=== PATIENT | female | born 1950 | race Two or more races ===

== ENCOUNTER 2018-05-09 21:45 | Inpatient (IN) | payer MEDICAID ==
[~2018-05-09] VITALS: Ht 157.5 cm; Wt 62.2 kg
[2018-05-09 21:47] VITALS: BP 151/69
--- NOTE | 2018-05-09 21:51 | NUR ---
ED Nurse Note: pt brought in by [facility] from home c/o sob x 2hrs, per son's statement, pt started having sx today, denies cp/rosales/pain, pt had nausea ENR to hospital, EMS gave pt zofran. pt currently denies nausea at this time. pt AA&ox4, gcs=15, skin warm and dry, resp even and unlabored on RA, no resp distress sx noted, no accessory muscle use, VSS, NSr on satellite project site monitor, will cont monitor. ERMD at the bedside.
--- NOTE | 2018-05-09 21:52 | Emergency Room Report ---
History of Present Illness General Chief Complaint: Dyspnea/Respdistress Source: Patient, Family Member Present Illness HPI This 68-year-old female with history of high blood pressure and diabetes. She presents with chief complaint of fever chills with nausea vomiting short of breath. Onset today. Vomited couple times. No diarrhea. Shaking chills. Coughing is nonproductive in nature. Vomiting is nonbloody nonbilious. No diarrhea. Denies any trauma. Nothing made it better. Nothing made it worse. Allergies: Coded Allergies: No Known Allergies (Unverified , 05/09/18) Patient History Past Medical History: see triage record, old chart reviewed, DM, HTN Past Surgical History: none Pertinent Family History: none Social History: Denies: smoking Last Menstrual Period: 2decades ago Now: No Immunizations: other Reviewed Nursing Documentation: PMH: Agreed; PSxH: Agreed Review of Systems Constitutional: Reports: chills, fever, weakness Eye: Denies: eye pain, blurred vision ENT: Denies: ear pain, nose congestion, throat swelling Respiratory: Reports: cough; Denies: shortness of breath Cardiovascular: Denies: chest pain, palpitations Gastrointestinal: Reports: abdominal pain, nausea, vomiting; Denies: diarrhea Musculoskeletal: Denies: back pain, joint pain Skin: Denies: rash Neurological: Denies: headache, numbness Endocrine: Denies: increased thirst, increased urine Hematologic/Lymphatic: Denies: easy bruising All Other Systems: negative except mentioned in HPI Physical Exam Vital Signs Date Time Temp Pulse Resp B/P (MAP) Pulse Ox O2 Delivery O2 Flow Rate FiO2 05/09/18 21:42 97.5 88 24 174/56 98 Room Air vitals with high blood pressure Sp02 EP Interpretation: reviewed, normal General Appearance: well appearing, no apparent distress, alert Head: normocephalic, atraumatic Eyes: bilateral eye PERRL, bilateral eye EOMI ENT: hearing grossly normal, normal pharynx Neck: full range of motion, supple, no meningismus Respiratory: chest non-tender, lungs clear, normal breath sounds Cardiovascular #1: regular rate, rhythm, no murmur Gastrointestinal: normal bowel sounds, non tender, no mass, no organomegaly, no bruit, non-distended Musculoskeletal: back normal, gait/station normal, normal range of motion Psychiatric: mood/affect normal Skin: warm/dry Procedures Critical Care Time Critical Care Time Critical care is mandated in this patient who presented with respiratory distress secondary to CHF and hyperkalemia. Patient require my urgent intervention to attenuate the risks of metabolic collapse which may lead to cardiovascular collapse and . Critical care time is 35 minutes excluding any reportable procedure. Critical care time included evaluation, multiple reevaluation, looking at old charts, interpreting laboratory and diagnostic data , discussing case with patient and family and consultants, and charting. Medical Decision Making Diagnostic Impression: Primary Impression: Acute exacerbation of CHF (congestive heart failure) Qualified Codes: I50.9 - Heart failure, unspecified Additional Impressions: Acute hyperkalemia ARF (acute renal failure) Qualified Codes: N17.9 - Acute kidney failure, unspecified Leukocytosis Qualified Codes: D72.829 - Elevated white blood cell count, unspecified Acute respiratory failure with hypoxia ER Course Patient presents with shortness of breath. She does have leukocytosis but no obvious pneumonia. No source of infection. She does have evidence of fluid overloaded. Also with hyperkalemia. This may have resulted in her rated cardia. Potassium improved after medication. She diuresed about 300 mL after Lasix. I put on BiPAP and she is more comfortable. We'll admit for further workup. I discussed the case with Dr. Jama who will admit. Lab Results Impression labs with hyperkalemia and leukocytosis EKG Diagnostic Results Rate: normal Rhythm: NSR ST Segments: no acute changes Rhythm Strip Diag. Results EP Interpretation: yes Rate: 50 Rhythm: NSR, no PVC's, no ectopy Chest X-Ray Diagnostic Results Chest X-Ray Diagnostic Results #1: Chest X-Ray Ordered: Yes # of Views/Limited/Complete: 1 View Indication: Shortness of Breath EP Interpretation: Yes Interpretation: no consolidation, no pneumothorax, other - Increased vascularization Impression: Other - chf Chest X-Ray Diagnostic Results #2: Chest X-Ray Ordered: Yes # of Views/Limited/Complete: 1 View Indication: Shortness of Breath EP Interpretation: Yes Interpretation: no effusion, no pneumothorax, other - increasing chf Impression: Other - chf Last Vital Signs Date Time Temp Pulse Resp B/P (MAP) Pulse Ox O2 Delivery O2 Flow Rate FiO2 05/09/18 21:47 61 18 Room Air 05/09/18 21:42 97.5 174/56 98 Status: improved Disposition: ADMITTED INPATIENT Condition: Serious Kadeem Donovan MD May 09, 2018 21:51
[2018-05-09] MEDS ORDERED: FUROSEMIDE40 MG ORAL (21:56)
[2018-05-09] MEDS ORDERED: CATAPRES0.1 MG ORAL (21:56)
[2018-05-09] MEDS ORDERED: FERROUS SULFAT325 MG ORAL (21:56)
[2018-05-09] MEDS ORDERED: COZAAR50 MG ORAL (21:56)
[2018-05-09] MEDS ORDERED: GLUCOTROL10 MG ORAL (21:56)
[2018-05-09] MEDS ORDERED: CARTIA XT240 MG ORAL (21:56)
[2018-05-09] MEDS ORDERED: OMEPRAZOLE20 M2 ORAL (21:56)
[2018-05-09] MEDS ORDERED: CARTIA XT300 MG ORAL (21:56)
[2018-05-09] MEDS: Ketorolac 30mg Inj IV ONE ×2 (21:57→22:15)
--- NOTE | 2018-05-09 22:00 | NUR ---
ED Nurse Note: pt c/o nausea, ERMD notified, received order zofran 4mg via IV.
[2018-05-09 23:00] VITALS: BP 138/50
[2018-05-09] MEDS ORDERED: Calcium Chloride 100mg/ml Vial IV ONE (23:00)
[2018-05-09] MEDS ORDERED: Sodium Polystyrene Sulfonate 15gm Powder ORAL ONE (23:00)
[2018-05-09] MEDS ORDERED: Insulin Human Regular 100units/ml 3ml IV ONE (23:00)
--- NOTE | 2018-05-09 23:20 | NUR ---
ED Nurse Note: PT CLEANED AND CHANGED, EXTRA BLANKET PROVIDED FOR COMFORT.
[2018-05-09] MEDS ORDERED: Sodium Polystyrene Sulfonate 15gm Powder ONE (23:22)
[2018-05-09] MEDS ORDERED: Insulin Human Regular 100units/ml 3ml ONE (23:22)
--- NOTE | 2018-05-10 | NUR ---
Note clyde in EDM - 05/10/18 at 0511 by KPARINKU ED Nurse Note: ERMD NOTIFIED REGARDING PT'S CONDITION, PT O2SAT 88% ON SIMPLE MASK, REPORTS SOB, RT CONTACTED. RECEIVED ORDER FOR BIPAP.
--- NOTE | 2018-05-10 00:10 | NUR ---
ED Nurse Note: NOTED O2SAT 88% ON RA, PT STARTED ON O2=2L VIA NC, ERMD NOTIFIED, PT CURRENT O2SAT 95%, WILL CONT MONITOR.
[2018-05-10 00:20] VITALS: BP 133/45
[2018-05-10 01:00] VITALS: BP 148/52
[2018-05-10 02:00] VITALS: BP 158/55
--- NOTE | 2018-05-10 02:10 | NUR ---
ED Nurse Note: ERMD NOTIFIED, O2SAT 88% ON SIMPLE MASK, RT CONTACTED, RECEIVED ORDER FOR BREATHING TX AND NEWBERRY, BIPAP.
[2018-05-10] MEDS ORDERED: Albuterol ud Inhalation ONE (02:18)
--- NOTE | 2018-05-10 02:20 | NUR ---
ED Nurse Note: NEWBERRY 12 FR INSERTED PER ERMD, PT TOLERATED WELL W/O DIFFICULTY, 10CC NS INSERTED, 30CC URINE YELLOW STRAW COLOR RETURNED, WILL CONT MONITOR. SECURED WITH DRESSING.
--- NOTE | 2018-05-10 02:40 | NUR ---
ED Nurse Note: PT O2SAT 100% ON BIPAP, PT REPORTS FEELING BETTER AFTER BREATHING TX, PT CLEANED AND CHANGED, WILL CONT MONITOR. EXTRA WARM BLANKET PROVIDED FOR COMFORT. VSS. 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
--- NOTE | 2018-05-10 03:10 | NUR ---
ED Nurse Note: REPORT GIVEN TO RN ARNULFO/MIN AND ENDORSED CARE, ALL BELONGINGS SENT W/ PT, VSS, SINUS TAMMY ON MOBILE APPLICATION TESTER, NEWBERRY INTACT, IV INTACT, PT WAS CLEANED AND CHANGED PRIOR TO TRNASFER, SKIN INTACT, RT AT THE BEDSIDE.
--- NOTE | 2018-05-10 03:20 | NUR ---
NURSE NOTES: Received report from ER nurse ROB Blandon.Patient stable,SR on rn cardiac,no respiratory distress noted K 6.0 from 7.6,IV intact skin intact,pt on BIPAP tolerated well,belongings list signed,bed secured,call light within a reach,daughter at bedside.
[2018-05-10 04:36] LABS: ANION GAP 9 mmol/L (5-15); BLOOD UREA NITROGEN 37 mg/dL (7-18); CALCIUM 8.7 MG/DL (8.5-10.1); CARBON DIOXIDE 18 MMOL/L (21-32); CHLORIDE 106 MMOL/L (98-107); CREATININE 2.9 MG/DL (0.55-1.30); SODIUM 133 MMOL/L (136-145)
[2018-05-10 04:48] LABS: POTASSIUM 7.6 MMOL/L (3.5-5.1)
[2018-05-10 04:49] LABS: HEMATOCRIT 26.4 % (37.0-47.0); HEMOGLOBIN 8.3 G/DL (12.0-16.0); MEAN CORPUSCULAR VOLUME 77 FL (80-99); PLATELET COUNT 187 K/UL (150-450); RED BLOOD COUNT 3.43 M/UL (4.20-5.40); RED CELL DISTRIBUTION WIDTH 14.1 % (11.6-14.8); WHITE BLOOD COUNT 21.2 K/UL (4.8-10.8)
[2018-05-10 04:54] LABS: ANION GAP 10 mmol/L (5-15); BLOOD UREA NITROGEN 35 mg/dL (7-18); CALCIUM 9.3 MG/DL (8.5-10.1); CARBON DIOXIDE 16 MMOL/L (21-32); CHLORIDE 109 MMOL/L (98-107); CREATININE 2.8 MG/DL (0.55-1.30); SODIUM 136 MMOL/L (136-145)
--- NOTE | 2018-05-10 07:05 | NUR ---
RESPIRATORY NOTE: Received pt on Bipap 10/5 -50% FiO2, saturates at 100%, pt is awake, alert, no SOB or resp distress noted. Titrated FiO2 down to 40%, saturates still at 100%. No redness or skin breakdown noted on pt's face, foam tape is applied to nose bridge, chin and cheeks to prevent skin breakdown. Alarms are set and audible, Bipap is plugged into the red out let, ambu bag is at bedside. Family member is at bedside. Waiting for Dr. Baez's ABG order. Will continue to monitor pt closely.
[2018-05-10] MEDS: Heparin 5000 units/ml inj SUBQ SCH ×3 (07:22→21:02)
--- NOTE | 2018-05-10 07:35 | NUR ---
HAND-OFF: Report given to ROB Zavaleta.Patient stable.
[2018-05-10 08:00] VITALS: BP 153/50
--- NOTE | 2018-05-10 08:53 | NUR ---
RADIOLOGY DEPT., CHEST X-RAY TAKEN IN ER ON ADMIT.ABA
[2018-05-10 10:14] LABS: HEMATOCRIT 26.4 % (37.0-47.0); HEMOGLOBIN 8.3 G/DL (12.0-16.0); MEAN CORPUSCULAR VOLUME 77 FL (80-99); PLATELET COUNT 184 K/UL (150-450); RED BLOOD COUNT 3.45 M/UL (4.20-5.40); RED CELL DISTRIBUTION WIDTH 13.9 % (11.6-14.8); WHITE BLOOD COUNT 11.8 K/UL (4.8-10.8)
[2018-05-10] MEDS ORDERED: Calcium Gluconate 1gm/10ml vial IVP SCH (10:30)
[2018-05-10] MEDS ORDERED: Insulin Human Regular 100units/ml 3ml IV SCH (10:30)
[2018-05-10 10:34] LABS: ALANINE AMINOTRANSFERASE 53 U/L (12-78); ALBUMIN 2.6 G/DL (3.4-5.0); ALBUMIN/GLOBULIN RATIO 0.6 (1.0-2.7); ALKALINE PHOSPHATASE 200 U/L (46-116); ANION GAP 10 mmol/L (5-15); ASPARTATE AMINO TRANSFERASE 35 U/L (15-37); BILIRUBIN,TOTAL 0.2 MG/DL (0.2-1.0); BLOOD UREA NITROGEN 34 mg/dL (7-18); CALCIUM 8.9 MG/DL (8.5-10.1); CARBON DIOXIDE 19 MMOL/L (21-32); CHLORIDE 108 MMOL/L (98-107); CREATININE 2.9 MG/DL (0.55-1.30); SODIUM 137 MMOL/L (136-145)
--- NOTE | 2018-05-10 10:36 | NUR ---
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 ACUTE EXACERBATION OF CHF VS: BP133/45, P 48, T 97.6, RR 24, SpO2 98 K 6.0, BUN 35, CR 2.8, WBC 21.2, RBC 3.43, HgB 8.3, Hct 26.4 IS;TORADOL 30mg IV NS x1L IV ZOFRAN 4mg ADMITTED TO SDU DC PLAN: RETURN HOME
[2018-05-10 10:39] LABS: POTASSIUM 6.6 MMOL/L (3.5-5.1)
--- NOTE | 2018-05-10 10:40 | NUR ---
NURSE NOTES: DR TORRE CAME TO SEE THE PT AND MADE AWARE AND NOTIFIED REGARDING k+ LEVEL 6.6. DR TORRE ORDER TO GIVE STAT NS 1 LITER BOLUS,DEXTROSE 100ML IVP, NOVOLIN R INSULIN 10 UNITS IVP,CALCIUM GLUCONATE 10% AND KAYAXALATE 45 GM P.O. ADMINISTER ALL MEDICATION PER M.D ORDER.WILL CONT TO MONITOR BMP AT 14OO P.M .
--- NOTE | 2018-05-10 10:48 | Consultation ---
History of Present Illness General Date patient seen: May 10, 2018 Chief Complaint: Dyspnea/Respdistress Present Illness HPI 68-year-old female with history of high blood pressure and diabetes, chronic renal disease presented to ER with chief complaint of fever chills with nausea vomiting short of breath for one day. She also vomited a couple of times. She had shaking chills and coughing which is nonproductive in nature. Her CXR showed pulmonary edema. She was started on BIPAP and transferred to [facility]. Allergies: Coded Allergies: No Known Allergies (Unverified , 05/09/18) Medication History Scheduled Clonidine Hcl* (Catapres*), 0.1 MG ORAL EVERY 6 HOURS, (Reported) Diltiazem Hcl* (Cartia Xt*), 240 MG ORAL DAILY, (Reported) Ferrous Sulfate* (Ferrous Sulfate*), 325 MG ORAL DAILY, (Reported) Furosemide* (Lasix*), 40 MG ORAL DAILY, (Reported) Glipizide* (Glucotrol*), 10 MG ORAL ACBREAKFAST, (Reported) Omeprazole (Omeprazole), 20 MG ORAL DAILY, (Reported) Discontinued Medications Diltiazem Hcl* (Cartia Xt*), 300 MG ORAL DAILY, (Reported) Discontinued Reason: MD discontinued med Losartan Potassium* (Cozaar*), 50 MG ORAL TWICE A DAY, (Reported) Discontinued Reason: MD discontinued med Patient History Healthcare decision maker N/A Resuscitation status Full Code Advanced Directive on File No Past Medical/Surgical History Past Medical/Surgical History: (1) History of hypertension (2) Diabetes mellitus (3) Diabetic nephropathy Review of Systems Constitutional: Reports: no symptoms Eye: Reports: no symptoms ENT: Reports: no symptoms Respiratory: Reports: shortness of breath Physical Exam General Appearance: WD/WN Lines, tubes and drains: peripheral HEENT: normocephalic, atraumatic Neck: non-tender, normal alignment Respiratory/Chest: chest wall non-tender, lungs clear, normal breath sounds Cardiovascular/Chest: normal peripheral pulses, normal rate Abdomen: normal bowel sounds, non tender Genitourinary/Rectal: heme negative stool Extremities: normal range of motion 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 Last 24 Hour Vital Signs Date Time Temp Pulse Resp B/P (MAP) Pulse Ox O2 Delivery O2 Flow Rate FiO2 05/10/18 08:55 59 20 96 05/10/18 08:00 56 05/10/18 08:00 98.9 60 14 153/50 (84) 97 05/10/18 08:00 Bi-pap 05/10/18 07:05 57 19 100 Facial 40 05/10/18 06:00 Bi-pap 05/10/18 05:40 Bi-pap 05/10/18 03:55 54 05/10/18 03:10 98.4 48 20 141/45 100 Bi-pap 100 05/10/18 02:20 100 05/10/18 02:00 98.5 55 18 158/55 92 Simple Mask 6.0 05/10/18 01:00 97.5 65 20 148/52 96 Room Air 05/10/18 00:20 98.4 56 18 133/45 95 Simple Mask 6.0 05/09/18 23:00 97.4 67 18 138/50 98 Room Air 05/09/18 22:45 98.4 05/09/18 21:47 98.6 61 18 151/69 98 Room Air 05/09/18 21:47 61 18 Room Air 05/09/18 21:42 97.5 88 24 174/56 98 Room Air Laboratory Tests Test 05/09/18 21:59 05/09/18 23:20 05/10/18 00:40 05/10/18 09:55 White Blood Count 21.2 K/UL (4.8-10.8) H 11.8 K/UL (4.8-10.8) H Red Blood Count 3.43 M/UL (4.20-5.40) L 3.45 M/UL (4.20-5.40) L Hemoglobin 8.3 G/DL (12.0-16.0) L 8.3 G/DL (12.0-16.0) L Hematocrit 26.4 % (37.0-47.0) L 26.4 % (37.0-47.0) L Mean Corpuscular Volume 77 FL (80-99) L 77 FL (80-99) L Mean Corpuscular Hemoglobin 24.2 PG (27.0-31.0) L 24.0 PG (27.0-31.0) L Mean Corpuscular Hemoglobin Concent 31.4 G/DL (32.0-36.0) L 31.3 G/DL (32.0-36.0) L Red Cell Distribution Width 14.1 % (11.6-14.8) 13.9 % (11.6-14.8) Platelet Count 187 K/UL (150-450) 184 K/UL (150-450) Mean Platelet Volume 5.9 FL (6.5-10.1) L 6.2 FL (6.5-10.1) L Neutrophils (%) (Auto) % (45.0-75.0) % (45.0-75.0) Lymphocytes (%) (Auto) % (20.0-45.0) % (20.0-45.0) Monocytes (%) (Auto) % (1.0-10.0) % (1.0-10.0) Eosinophils (%) (Auto) % (0.0-3.0) % (0.0-3.0) Basophils (%) (Auto) % (0.0-2.0) % (0.0-2.0) Differential Total Cells Counted 100 Neutrophils % (Manual) 95 % (45-75) H Pending Lymphocytes % (Manual) 2 % (20-45) L Pending Monocytes % (Manual) 2 % (1-10) Eosinophils % (Manual) 0 % (0-3) Basophils % (Manual) 0 % (0-2) Promyelocytes % 1 % (0-0) H Band Neutrophils 0 % (0-8) Platelet Estimate Adequate Pending Platelet Morphology Normal Pending Red Blood Cell Morphology Normal Sodium Level 133 MMOL/L (136-145) L 136 MMOL/L (136-145) Pending Potassium Level 7.6 MMOL/L (3.5-5.1) *H 6.0 MMOL/L (3.5-5.1) *H Pending Chloride Level 106 MMOL/L (98-107) 109 MMOL/L (98-107) H Pending Carbon Dioxide Level 18 MMOL/L (21-32) L 16 MMOL/L (21-32) L Pending Anion Gap 9 mmol/L (5-15) 10 mmol/L (5-15) Blood Urea Nitrogen 37 mg/dL (7-18) H 35 mg/dL (7-18) H Pending Creatinine 2.9 MG/DL (0.55-1.30) H 2.8 MG/DL (0.55-1.30) H Pending Estimat Glomerular Filtration Rate 16.2 mL/min (>60) 16.8 mL/min (>60) Pending Glucose Level 253 MG/DL (74-106) H 252 MG/DL (74-106) H Pending Calcium Level 8.7 MG/DL (8.5-10.1) 9.3 MG/DL (8.5-10.1) Pending Lactic Acid Level 0.90 mmol/L (0.4-2.0) Troponin I 0.034 ng/mL (0.000-0.056) Pro-B-Type Natriuretic Peptide 820 pg/mL (0-125) H Phosphorus Level Pending Magnesium Level Pending Total Bilirubin Pending Aspartate Amino Transf (AST/SGOT) Pending Alanine Aminotransferase (ALT/SGPT) Pending Alkaline Phosphatase Pending Total Protein Pending Albumin Pending Globulin Pending Height (Feet): 5 Height (Inches): 2.00 Weight (Pounds): 130 Medications Current Medications Medications (Trade) Dose Ordered Sig/Marshall Route PRN Reason Start Time Stop Time Status Last Admin Dose Admin Dextrose (Dextrose 50%) 25 ml Q30M PRN IV Hypoglycemia 05/10/18 05:45 06/09/18 05:44 Dextrose (Dextrose 50%) 50 ml Q30M PRN IV Hypoglycemia 05/10/18 05:45 06/09/18 05:44 Heparin Sodium (Porcine) (Heparin 5000 units/ml) 5,000 units EVERY 8 HOURS SUBQ 05/10/18 06:00 06/09/18 05:59 05/10/18 07:22 Insulin Aspart (NovoLOG) BEFORE MEALS AND HS SUBQ 05/10/18 06:30 06/09/18 06:29 Sodium Chloride 1,000 ml @ 75 mls/hr [id number] IV 05/10/18 05:45 06/09/18 05:44 05/10/18 07:19 Assessment/Plan Problem List: (1) Acute respiratory failure with hypoxia ICD Codes: J96.01 - Acute respiratory failure with hypoxia SNOMED: 80337641, 383380242 (2) Acute exacerbation of CHF (congestive heart failure) ICD Codes: I50.9 - Heart failure, unspecified SNOMED: 76446207, 990627183 Qualifiers: Qualified Codes: I50.9 - Heart failure, unspecified (3) Acute hyperkalemia ICD Codes: E87.5 - Hyperkalemia SNOMED: 5491515, 006975124 (4) Diabetes mellitus ICD Codes: E11.9 - Type 2 diabetes mellitus without complications SNOMED: 83657276 (5) History of hypertension ICD Codes: Z86.79 - Personal history of other diseases of the circulatory system SNOMED: 997154118 (6) Diabetic nephropathy ICD Codes: E11.21 - Type 2 diabetes mellitus with diabetic nephropathy SNOMED: 991979040 Assessment/Plan renal studies echocardiogram monitor BP fever most likely secondary to some viral infection that caused her cardiac and renal function to decompensate. d50 and indulin + Kayexalate repeat BMP Jossue Hills MD May 10, 2018 10:48
--- NOTE | 2018-05-10 10:48 | NUR ---
RESPIRATORY NOTE: ABG done and reported to ROB Zavaleta and Dr. Hills. Dr. Hills verbally ordered Bipap to be PRN. Inform ROB Zavaleta about the order. Pt is on 5L NC 40% at this time, no SOB or resp distress noted. Will continue to monitor pt closely.
[2018-05-10 11:13] LABS: CREATINE KINASE 48 U/L (26-308)
[2018-05-10] MEDS ORDERED: Sodium Polystyrene Sulfonate 15gm Powder ORAL SCH (11:15)
[2018-05-10 12:00] VITALS: BP 165/60
--- NOTE | 2018-05-10 12:00 | NUR ---
*-* INSURANCE *-* CLINICALS AND REVIEWS HAVE BEEN FAXED TO: DEANN Bhandari [phone] F [phone]
--- NOTE | 2018-05-10 12:05 | NUR ---
RESPIRATORY NOTE: Got a call that pt is desat to 87% on 5L NC. Placed pt on Venturi mask 13L 50%FiO2, saturation went up to 96%. No SOB or resp distress noted. ROB Zavaleta and family member are at bedside. Will continue to monitor pt.
--- NOTE | 2018-05-10 12:26 | History & Physical ---
History and Physical History & Physicial Maico Jama MD May 10, 2018 12:26
[2018-05-10] MEDS: NovoLOG Insulin Flexpen SUBQ SCH ×4 (12:31→21:02)
--- NOTE | 2018-05-10 12:56 | Diagnostic Imaging Report ---
Indication: Shortness of breath Technique: One view of the chest Comparison: none Findings: The heart is enlarged. There are borderline interstitial congestive changes. No focal airspace consolidation. No effusions. Impression: Cardiomegaly. Borderline interstitial congestion
--- NOTE | 2018-05-10 13:03 | Diagnostic Imaging Report ---
Indication: Shortness of breath Technique: One view of the chest Comparison: 4 hours earlier Findings: Interim marked increase in interstitial edema, with fluffy bilateral perihilar and left retrocardiac airspace opacities also evident. There is suggestion of developing pleural fluid on the left as well. The heart remains enlarged. Impression: Evidence of worsening congestive heart failure, over 4 hours, as described. Findings previously discussed by phone with Dr. Hills
[2018-05-10 13:09] LABS: APPEARANCE,URINE CLEAR; BILIRUBIN, URINE NEGATIVE (NEGATIVE); COLOR,URINE PALE YELLOW; GLUCOSE, URINE (UA) NEGATIVE (NEGATIVE); KETONES,URINE NEGATIVE (NEGATIVE); LEUKOCYTE ESTERASE ,URINE NEGATIVE (NEGATIVE); NITRITE,URINE NEGATIVE (NEGATIVE); PH,URINE 5 (4.5-8.0); PROTEIN,URINE 3+ (NEGATIVE); UROBILINOGEN,URINE NORMAL MG/DL (0.0-1.0)
[2018-05-10] MEDS: cefTRIAXone 1 GM in D5W 55 ML IVPB SCH (13:49)
--- NOTE | 2018-05-10 14:53 | Consultation ---
History of Present Illness General Date patient seen: May 10, 2018 Chief Complaint: Dyspnea/Respdistress Present Illness HPI 68 y/o F with hx of HTN, DM2, CKD presents to ED on 05/09 for fever, chills, n/v , dry cough and SOB of 1 day duration. She required Bipap and was admitted to [facility]. Denied diarrhea upon admission Allergies: Coded Allergies: No Known Allergies (Unverified , 05/09/18) Medication History Scheduled Clonidine Hcl* (Catapres*), 0.1 MG ORAL EVERY 6 HOURS, (Reported) Diltiazem Hcl* (Cartia Xt*), 240 MG ORAL DAILY, (Reported) Ferrous Sulfate* (Ferrous Sulfate*), 325 MG ORAL DAILY, (Reported) Furosemide* (Lasix*), 40 MG ORAL DAILY, (Reported) Glipizide* (Glucotrol*), 10 MG ORAL ACBREAKFAST, (Reported) Omeprazole (Omeprazole), 20 MG ORAL DAILY, (Reported) Discontinued Medications Diltiazem Hcl* (Cartia Xt*), 300 MG ORAL DAILY, (Reported) Discontinued Reason: MD discontinued med Losartan Potassium* (Cozaar*), 50 MG ORAL TWICE A DAY, (Reported) Discontinued Reason: MD discontinued med Patient History Healthcare decision maker N/A Resuscitation status Full Code Advanced Directive on File No Patient History Narrative Pmhx: as above Shx: Denies: smoking Fhx non contributory Review of Systems All Other Systems: negative except mentioned in HPI Physical Exam Physical Exam Narrative General Appearance: WD/WN Lines, tubes and drains: peripheral HEENT: normocephalic, atraumatic Neck: non-tender, normal alignment Respiratory/Chest: chest wall non-tender, lungs clear, normal breath sounds Cardiovascular/Chest: normal peripheral pulses, normal rate Abdomen: normal bowel sounds, non tender Genitourinary/Rectal: heme negative stool Extremities: normal range of motion 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 Last 24 Hour Vital Signs Date Time Temp Pulse Resp B/P (MAP) Pulse Ox O2 Delivery O2 Flow Rate FiO2 05/10/18 12:57 96 Venturi Mask 12.0 50 05/10/18 12:57 Venturi Mask 12.0 50 05/10/18 12:00 98.1 69 25 165/60 (95) 91 3/22/19 12:00 Bi-pap 05/10/18 12:00 40 05/10/18 10:35 57 19 92 05/10/18 08:55 59 20 96 05/10/18 08:00 56 05/10/18 08:00 98.9 60 14 153/50 (84) 97 05/10/18 08:00 Bi-pap 05/10/18 08:00 40 05/10/18 07:05 57 19 100 Facial 40 05/10/18 06:00 Bi-pap 05/10/18 05:40 Bi-pap 05/10/18 03:55 54 05/10/18 03:10 98.4 48 20 141/45 100 Bi-pap 100 05/10/18 02:20 100 05/10/18 02:00 98.5 55 18 158/55 92 Simple Mask 6.0 05/10/18 01:00 97.5 65 20 148/52 96 Room Air 05/10/18 00:20 98.4 56 18 133/45 95 Simple Mask 6.0 05/09/18 23:00 97.4 67 18 138/50 98 Room Air 05/09/18 22:45 98.4 05/09/18 21:47 98.6 61 18 151/69 98 Room Air 05/09/18 21:47 61 18 Room Air 05/09/18 21:42 97.5 88 24 174/56 98 Room Air Laboratory Tests Test 05/09/18 21:59 05/09/18 23:20 05/10/18 00:40 05/10/18 00:42 White Blood Count 21.2 K/UL (4.8-10.8) H Red Blood Count 3.43 M/UL (4.20-5.40) L Hemoglobin 8.3 G/DL (12.0-16.0) L Hematocrit 26.4 % (37.0-47.0) L Mean Corpuscular Volume 77 FL (80-99) L Mean Corpuscular Hemoglobin 24.2 PG (27.0-31.0) L Mean Corpuscular Hemoglobin Concent 31.4 G/DL (32.0-36.0) L Red Cell Distribution Width 14.1 % (11.6-14.8) Platelet Count 187 K/UL (150-450) Mean Platelet Volume 5.9 FL (6.5-10.1) L Neutrophils (%) (Auto) % (45.0-75.0) Lymphocytes (%) (Auto) % (20.0-45.0) Monocytes (%) (Auto) % (1.0-10.0) Eosinophils (%) (Auto) % (0.0-3.0) Basophils (%) (Auto) % (0.0-2.0) Differential Total Cells Counted 100 Neutrophils % (Manual) 95 % (45-75) H Lymphocytes % (Manual) 2 % (20-45) L Monocytes % (Manual) 2 % (1-10) Eosinophils % (Manual) 0 % (0-3) Basophils % (Manual) 0 % (0-2) Promyelocytes % 1 % (0-0) H Band Neutrophils 0 % (0-8) Platelet Estimate Adequate Platelet Morphology Normal Red Blood Cell Morphology Normal Sodium Level 133 MMOL/L (136-145) L 136 MMOL/L (136-145) Potassium Level 7.6 MMOL/L (3.5-5.1) *H 6.0 MMOL/L (3.5-5.1) *H Chloride Level 106 MMOL/L (98-107) 109 MMOL/L (98-107) H Carbon Dioxide Level 18 MMOL/L (21-32) L 16 MMOL/L (21-32) L Anion Gap 9 mmol/L (5-15) 10 mmol/L (5-15) Blood Urea Nitrogen 37 mg/dL (7-18) H 35 mg/dL (7-18) H Creatinine 2.9 MG/DL (0.55-1.30) H 2.8 MG/DL (0.55-1.30) H Estimat Glomerular Filtration Rate 16.2 mL/min (>60) 16.8 mL/min (>60) Glucose Level 253 MG/DL (74-106) H 252 MG/DL (74-106) H Calcium Level 8.7 MG/DL (8.5-10.1) 9.3 MG/DL (8.5-10.1) Lactic Acid Level 0.90 mmol/L (0.4-2.0) Troponin I 0.034 ng/mL (0.000-0.056) Pro-B-Type Natriuretic Peptide 820 pg/mL (0-125) H Lab Scanned Report Lab Reports [id number] Test 05/10/18 09:55 05/10/18 10:35 05/10/18 12:30 05/10/18 14:10 White Blood Count 11.8 K/UL (4.8-10.8) H Red Blood Count 3.45 M/UL (4.20-5.40) L Hemoglobin 8.3 G/DL (12.0-16.0) L Hematocrit 26.4 % (37.0-47.0) L Mean Corpuscular Volume 77 FL (80-99) L Mean Corpuscular Hemoglobin 24.0 PG (27.0-31.0) L Mean Corpuscular Hemoglobin Concent 31.3 G/DL (32.0-36.0) L Red Cell Distribution Width 13.9 % (11.6-14.8) Platelet Count 184 K/UL (150-450) Mean Platelet Volume 6.2 FL (6.5-10.1) L Neutrophils (%) (Auto) % (45.0-75.0) Lymphocytes (%) (Auto) % (20.0-45.0) Monocytes (%) (Auto) % (1.0-10.0) Eosinophils (%) (Auto) % (0.0-3.0) Basophils (%) (Auto) % (0.0-2.0) Differential Total Cells Counted 100 Neutrophils % (Manual) 86 % (45-75) H Lymphocytes % (Manual) 9 % (20-45) L Monocytes % (Manual) 5 % (1-10) Eosinophils % (Manual) 0 % (0-3) Basophils % (Manual) 0 % (0-2) Band Neutrophils 0 % (0-8) Platelet Estimate Adequate Platelet Morphology Normal Hypochromasia 2+ Anisocytosis 1+ Microcytosis 1+ Sodium Level 137 MMOL/L (136-145) Pending Potassium Level 6.6 MMOL/L (3.5-5.1) *H Pending Chloride Level 108 MMOL/L (98-107) H Pending Carbon Dioxide Level 19 MMOL/L (21-32) L Pending Anion Gap 10 mmol/L (5-15) Blood Urea Nitrogen 34 mg/dL (7-18) H Pending Creatinine 2.9 MG/DL (0.55-1.30) H Pending Estimat Glomerular Filtration Rate 16.2 mL/min (>60) Pending Glucose Level 219 MG/DL (74-106) H Pending Uric Acid 6.1 MG/DL (2.6-7.2) Calcium Level 8.9 MG/DL (8.5-10.1) Pending Phosphorus Level 4.0 MG/DL (2.5-4.9) Magnesium Level 1.9 MG/DL (1.8-2.4) Total Bilirubin 0.2 MG/DL (0.2-1.0) Aspartate Amino Transf (AST/SGOT) 35 U/L (15-37) Alanine Aminotransferase (ALT/SGPT) 53 U/L (12-78) Alkaline Phosphatase 200 U/L (46-116) H Total Creatine Kinase 48 U/L (26-308) Total Protein 7.0 G/DL (6.4-8.2) Albumin 2.6 G/DL (3.4-5.0) L Globulin 4.4 g/dL Albumin/Globulin Ratio 0.6 (1.0-2.7) L Arterial Blood pH 7.355 (7.350-7.450) Arterial Blood Partial Pressure CO2 28.5 mmHg (35.0-45.0) L Arterial Blood Partial Pressure O2 66.8 mmHg (75.0-100.0) L Arterial Blood HCO3 15.6 mmol/L (22.0-26.0) *L Arterial Blood Oxygen Saturation 91.5 % (95-100) L Arterial Blood Base Excess -8.9 (-2-2) L Eusebio Test Positive Urine Color Pale yellow Urine Appearance Clear Urine pH 5 (4.5-8.0) Urine Specific [place] 1.010 (1.005-1.035) Urine Protein 3+ (NEGATIVE) H Urine Glucose (UA) Negative (NEGATIVE) Urine Ketones Negative (NEGATIVE) Urine Blood Negative (NEGATIVE) Urine Nitrite Negative (NEGATIVE) Urine Bilirubin Negative (NEGATIVE) Urine Urobilinogen Normal MG/DL (0.0-1.0) Urine Leukocyte Esterase Negative (NEGATIVE) Urine RBC 0-2 /HPF (0 - 2) Urine WBC 0-2 /HPF (0 - 2) Urine Squamous Epithelial Cells Occasional /LPF Urine Bacteria Occasional /HPF (NONE) Urine Fine Granular Casts 0-2 /LPF (NONE) H Urine Eosinophils None seen (NONE SEEN) Urine Random Creatinine Pending Urine Random Microalbumin Pending Urine Random Sodium 99 mmol/L (20-110) Urine Creatinine 25.3 MG/DL (30.0-125.0) L Urine Microalbumin/Creatinine Ratio Pending Urine Potassium Timed 16 mmol/L (12-62) Height (Feet): 5 Height (Inches): 2.00 Weight (Pounds): 130 Medications Current Medications Medications (Trade) Dose Ordered Sig/Marshall Route PRN Reason Start Time Stop Time Status Last Admin Dose Admin Ceftriaxone Sodium 1 gm/ Dextrose 55 ml @ 110 mls/hr DAILY IVPB 05/10/18 13:00 05/17/18 12:59 05/10/18 13:49 Dextrose (Dextrose 50%) 25 ml Q30M PRN IV Hypoglycemia 05/10/18 05:45 06/09/18 05:44 Dextrose (Dextrose 50%) 50 ml Q30M PRN IV Hypoglycemia 05/10/18 05:45 06/09/18 05:44 Furosemide (Lasix) 80 mg EVERY 12 HOURS IV 05/10/18 11:00 06/09/18 10:59 05/10/18 11:49 Heparin Sodium (Porcine) (Heparin 5000 units/ml) 5,000 units EVERY 8 HOURS SUBQ 05/10/18 06:00 06/09/18 05:59 05/10/18 07:22 Hydralazine HCl (Apresoline) 10 mg Q4H PRN IV sbp> 160 05/10/18 11:00 06/09/18 10:59 Insulin Aspart (NovoLOG) BEFORE MEALS AND HS SUBQ 05/10/18 06:30 06/09/18 06:29 05/10/18 12:31 Insulin Human Regular (NovoLIN R) 10 units ONCE IV 05/10/18 10:30 06/09/18 11:30 05/10/18 11:39 Ondansetron HCl (Zofran) 4 mg Q4H PRN IVP Nausea & Vomiting 05/10/18 12:15 06/09/18 12:14 05/10/18 12:22 Assessment/Plan Assessment/Plan Abx: Ceftriaxone 05/10- Assessment: Probable PNA CHF exacerbation -CXR: Interim marked increase in interstitial edema, with fluffy bilateral perihilar and left retrocardiac airspace opacities also evident. There is suggestion of developing pleural fluid on the left as well. Acute respiratory failure s/p bipap, now on VM- 2ry to above Afebrile Leukocytosis, improving -u/a neg -Bcx NTD BELEN cx CKD HTN DM2 CKD Plan: -Continue empiric Ceftriaxone #1 and add azithromycin for atypical coverage -f.u cx -Monitor CBC/CMP, temperatures -legionella ag urine, influenza sc, sp cx -aspiration precautions Thank you for this consultation. Will continue to follow along with you. Maddy Gutierrez M.D. May 10, 2018 14:53
--- NOTE | 2018-05-10 15:05 | Consultation ---
Consult Note Assessment/Plan Reelainel note dictated # [id number] Carlos Alberto Jasmine MD May 10, 2018 15:05
[2018-05-10 15:09] LABS: ANION GAP 12 mmol/L (5-15); BLOOD UREA NITROGEN 33 mg/dL (7-18); CALCIUM 8.8 MG/DL (8.5-10.1); CARBON DIOXIDE 19 MMOL/L (21-32); CHLORIDE 108 MMOL/L (98-107); CREATININE 2.8 MG/DL (0.55-1.30); POTASSIUM 5.3 MMOL/L (3.5-5.1); SODIUM 139 MMOL/L (136-145)
[2018-05-10 16:00] VITALS: BP 167/72
[2018-05-10] MEDS ORDERED: Azithromycin 250mg tab ORAL SCH (16:00)
--- NOTE | 2018-05-10 18:00 | NUR ---
NURSE NOTES: PT WITH HIGH B/P 167/72 ,MEDICATED WITH APRESOLINE 10MG/ 0.5 ML IVP PER M.D ORDERS.WILL CONT TO MONITOR.
--- NOTE | 2018-05-10 19:00 | NUR ---
HAND-OFF: Report given to .ARNULFO RIVAS.
--- NOTE | 2018-05-10 19:01 | NUR ---
NURSE NOTES: Received bedside report from ROB Zavaleta.Patient stable,no c/o pain,no respiratory distress noted,A&Ox3-4,SR on secured entrance monitor,patient tolerated Ventury Mask @ 15L 50% well,skin intact,IV asymptomatic,intact,bed secured,call light within a reach,daughter at bedside.Will continue to monitor and follow POC.
--- NOTE | 2018-05-10 20:30 | History and Physical Report ---
DATE OF ADMISSION: 05/10/2018 CHIEF COMPLAINT: Shortness of breath, respiratory distress. HISTORY OF PRESENT ILLNESS: This 68-year-old [place] female with past medical history significant for hypertension, diabetes type 2, chronic kidney disease, history of right breast biopsy, who was presented to the hospital complaining about fever, chills, nausea, vomiting associated with shortness of breath, got progressively worse in the past 24 hours. She stated she has been vomiting, unable to tolerate oral intake. She has been having chills and shaking and nonproductive cough. Chest x-ray was done in the ER showed a pulmonary edema and the patient's laboratory was significant for potassium level of 7.6 and a BUN of 37, creatinine 2.9 and subsequently the patient was admitted to the hospital with acute kidney injury and chronic renal insufficiency with hyperkalemia. PAST MEDICAL HISTORY/PAST SURGICAL HISTORY: As above. History of chronic kidney disease, hypertension, diabetes type 2, right breast biopsy. MEDICATIONS AT HOME: Significant for clonidine, diltiazem, iron sulfate, Lasix, glipizide, omeprazole, losartan. ALLERGIES: No known drug allergies. SOCIAL HISTORY: Denies any smoking, alcohol, or drugs. FAMILY HISTORY: Noncontributory. REVIEW OF SYSTEMS: Mostly as above. Denies any dysuria, frequency, or hematuria. Denies any hemoptysis or hematochezia. Denies any bright red blood per rectum. Complained about nausea, vomiting, fever, chills. Denies any loss of consciousness. Denies any fall or head trauma. PHYSICAL EXAMINATION: VITAL SIGNS: On admission, temperature 97.5, pulse of 88, respirations 24, blood pressure 174/56. GENERAL: The patient is awake, responsive, not in no acute distress. HEAD AND NECK: Pupils equal and reactive to light. Extraocular movements are intact. Neck was supple. No JVD. LUNGS: Good air entry. No wheezes or rhonchi. Decreased in bases. Occasional crackles in the bases. HEART: S1 and S2. Regular rhythm. ABDOMEN: Soft, nondistended, nontender. Positive bowel sounds. The patient has epigastric tenderness. EXTREMITIES: No cyanosis, clubbing, edema. NEUROLOGIC: Cranial nerves II through XII grossly intact. Motor is 5/5 in all extremities. LABORATORY AND DIAGNOSTIC DATA: On admission from the ER, WBC of 21, hemoglobin 8.3, hematocrit 26, platelet is 187. Sodium 133, potassium 7.6, chloride 106, bicarb of 18, BUN 37, creatinine 2.9, and glucose is at 253. Lactic acid 0.90. ABG is pH of 7.35, pCO2 of 28, pO2 of 66, saturating 91.5. ASSESSMENT: 1. Sepsis. 2. Acute hypoxemic respiratory failure. 3. Acute CHF exacerbation. 4. Hyperkalemia. 5. Hyponatremia. 6. Diabetes type 2. 7. Hypertension. 8. Diabetic nephropathy. PLAN: 1. Admit the patient to [facility]. 2. We will follow up laboratory, cultures. 3. We will monitor potassium level closely. 4. Kayexalate, D50, insulin. 5. Discussed with Dr. Hills, Pulmonary Critical Care and Dr. Carlos Alberto Jasmine from Nephrology and Dr. Carlo Ferrari from Cardiology. 6. Follow up with 2D echo. 7. Code status is Full Code. 8. DVT prophylaxis. Heparin subcutaneous. 9. Discussed with the daughter extensively at bedside. Maico Jama M.D. DR: FAYE JOB#: [id number] CC:
[2018-05-11] VITALS: BP 184/76
--- NOTE | 2018-05-11 01:00 | Consultation ---
DATE OF CONSULTATION: 05/10/2018 NOTE: POOR AUDIO NEPHROLOGY CONSULTATION CONSULTING PHYSICIAN: Carlos Alberto Jasmine M.D. REFERRING PHYSICIAN: Maico Jama M.D. REASON FOR CONSULTATION: Renal failure and hyperkalemia. HISTORY OF PRESENT ILLNESS: This is a 68-year-old [facility] female who was admitted with dyspnea and diagnosis of pulmonary edema. The patient is a poor historian. History was obtained from the chart. Also, I called the daughter who provided some information. Apparently, the patient has had diabetes for long time as she probably has also diabetic retinopathy. The daughter says she has had eye problems from diabetes, but she has not had any surgery in her eyes. She has also long history of hypertension. The daughter says about three months ago, they were told that she had some kidney problems. I was asked to see the patient because of elevation in BUN and creatinine to 35 and 2.8 upon admission. Her potassium, which was 6.0, was repeatedly 6.6. The patient received some D50 insulin and calcium and also she received Kayexalate p.o. PAST MEDICAL HISTORY: As above. MEDICATIONS: Reviewed in the EMR. SOCIAL HISTORY: No history of smoking or alcohol abuse. ALLERGIES: No known drug allergies. REVIEW OF SYSTEMS: The patient still maintains good amount of urine. PHYSICAL EXAMINATION: GENERAL: The patient is a 68-year-old female, in no acute distress. VITAL SIGNS: Blood pressure is 165/60, pulse 69, respiratory rate 25, and temperature 98.1. HEENT: Somewhat pale conjunctivae. Anicteric sclerae. NECK: Supple. LUNGS: Bilateral rhonchi. HEART: S1 and S2 without murmurs or rubs. ABDOMEN: Soft and nontender. EXTREMITIES: No cyanosis or edema. LABORATORY FINDINGS: CBC shows a WBC of 11.8, hematocrit 26.1, hemoglobin is 8.3, and platelets is 184,000. Chemistry panel shows serum sodium 137, potassium 6.6, chloride 108, CO2 19, BUN 34, creatinine 2.9, and glucose 219. UA shows 3+ protein, 0 to 2 wbc's, and 0 to 2 rbc's. ASSESSMENT: This is a 68-year-old female admitted with pulmonary edema. She has significant renal failure with severe hyperkalemia. 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 She is also anemic, which goes along with diagnosis of chronic kidney disease, likely is from diabetes and hypertension. She has 3+ proteinuria, which goes along with history of CKD as well. PLAN: I would diurese the patient. PRN Kayexalate until the potassium is safe range. She may need to be on daily Kayexalate in addition to low k diet to maintain her potassium in acceptable range. I will start the patient Epogen for anemia. Iron panel needs to be rechecked to make sure the patient is not iron deficient. Serum PTH needs to be done to make sure the patient does not have secondary hyperparathyroidism. Eventually if the serum creatinine is stable I will get a 24-hour urine to calculate the creatinine clearance. The patient may need dialysis soon, especially if her hyperkalemia does not get under control. Thank you very much, Dr. Jama, for this consultation. Carlos Alberto Jasmine M.D. DR: MAGGIE JOB#: [id number] CC: ADELA
[2018-05-11 04:00] VITALS: BP 164/64
[2018-05-11] MEDS: Heparin 5000 units/ml inj SUBQ SCH (05:30)
[2018-05-11] MEDS: NovoLOG Insulin Flexpen SUBQ SCH ×4 (05:31→21:00)
[2018-05-11 05:44] LABS: BASOPHILS % (AUTO) 0.3 % (0.0-2.0); EOSINOPHILS % (AUTO) 0.4 % (0.0-3.0); HEMATOCRIT 27.9 % (37.0-47.0); HEMOGLOBIN 8.8 G/DL (12.0-16.0); LYMPHOCYTES % (AUTO) 12.9 % (20.0-45.0); MEAN CORPUSCULAR VOLUME 76 FL (80-99); MONOCYTES % (AUTO) 4.7 % (1.0-10.0); NEUTROPHILS % (AUTO) 81.7 % (45.0-75.0); PLATELET COUNT 206 K/UL (150-450); RED BLOOD COUNT 3.69 M/UL (4.20-5.40); RED CELL DISTRIBUTION WIDTH 14.3 % (11.6-14.8); WHITE BLOOD COUNT 13.6 K/UL (4.8-10.8)
[2018-05-11 06:14] LABS: % IRON SATURATION 6 % (15-50); IRON 18 ug/dL (50-175); TOTAL IRON BINDING CAPACITY 287 ug/dL (250-450)
[2018-05-11 06:22] LABS: ALANINE AMINOTRANSFERASE 46 U/L (12-78); ALBUMIN 2.6 G/DL (3.4-5.0); ALBUMIN/GLOBULIN RATIO 0.5 (1.0-2.7); ALKALINE PHOSPHATASE 191 U/L (46-116); ANION GAP 12 mmol/L (5-15); ASPARTATE AMINO TRANSFERASE 24 U/L (15-37); BILIRUBIN,TOTAL 0.2 MG/DL (0.2-1.0); BLOOD UREA NITROGEN 28 mg/dL (7-18); CALCIUM 8.5 MG/DL (8.5-10.1); CARBON DIOXIDE 23 MMOL/L (21-32); CHLORIDE 108 MMOL/L (98-107); CREATININE 2.6 MG/DL (0.55-1.30); POTASSIUM 3.9 MMOL/L (3.5-5.1); SODIUM 143 MMOL/L (136-145)
--- NOTE | 2018-05-11 07:15 | NUR ---
HAND-OFF: Report given to ROB Mortensen.Patient stable.
--- NOTE | 2018-05-11 07:20 | NUR ---
NURSE NOTES: Report received from Diana Roque RN.pt resting in bed asleep,awakens easily with verbal commands denies any SOB or pain,Stach on the monitor,pt coughing on and off with thin whitish phlegm in moderate amount.,SR up x2 ,callbell within reach at bedside,IV sites x2,intact,skin warm and dry, HOB elevated ,bed lock in lowest position,daughter at bedside,will continue with plans of care.
[2018-05-11 08:00] VITALS: BP 157/68
[2018-05-11] MEDS: cefTRIAXone 1 GM in D5W 55 ML IVPB SCH (08:34)
[2018-05-11] MEDS ORDERED: Azithromycin 250mg tab ORAL SCH (09:00)
--- NOTE | 2018-05-11 09:14 | Infectious Diseases Prog Note ---
Assessment/Plan Assessment/Plan Assessment: Probable PNA CHF exacerbation -CXR: Interim marked increase in interstitial edema, with fluffy bilateral perihilar and left retrocardiac airspace opacities also evident. There is suggestion of developing pleural fluid on the left as well. Acute respiratory failure s/p bipap, now on VM- 2ry to above Afebrile Leukocytosis, overall improving -u/a neg -Bcx NTD BELEN cx CKD HTN DM2 CKD Plan: -Continue empiric Ceftriaxone #2 and azithromycin d# 2 for atypical coverage -f.u cx -Monitor CBC/CMP, temperatures -legionella ag urine, influenza sc, sp cx -aspiration precautions Subjective Allergies: Coded Allergies: No Known Allergies (Unverified , 05/09/18) Objective Vital Signs Last 24 Hour Vital Signs Date Time Temp Pulse Resp B/P (MAP) Pulse Ox O2 Delivery O2 Flow Rate FiO2 05/11/18 08:00 98.2 104 20 157/68 (97) 98 05/11/18 05:46 164/64 05/11/18 04:00 98.0 67 28 164/64 (97) 94 05/11/18 04:00 Bi-pap 05/11/18 04:00 15.0 05/11/18 03:42 76 05/11/18 00:52 184/76 05/11/18 00:00 97.9 74 24 184/76 (112) 97 05/11/18 00:00 40 05/11/18 00:00 Bi-pap 05/10/18 23:39 82 05/10/18 20:25 Venturi Mask 12.0 50 05/10/18 20:25 95 Venturi Mask 12.0 50 05/10/18 20:00 Bi-pap 05/10/18 19:27 76 05/10/18 18:25 167/72 05/10/18 16:00 97.7 67 23 167/72 (103) 92 05/10/18 16:00 63 05/10/18 16:00 Bi-pap 05/10/18 12:57 96 Venturi Mask 12.0 50 05/10/18 12:57 Venturi Mask 12.0 50 05/10/18 12:00 98.1 69 25 165/60 (95) 91 05/10/18 12:00 Bi-pap 05/10/18 12:00 40 05/10/18 12:00 73 05/10/18 10:35 57 19 92 Height (Feet): 5 Height (Inches): 2.00 Weight (Pounds): 139 Microbiology Date/Time Source Procedure Growth Status 05/10/18 12:30 Nasopharynx Influenza Types A,B Antigen (KRISSY) - Final Complete Laboratory Tests Test 05/10/18 09:55 05/10/18 10:35 05/10/18 12:30 05/10/18 14:10 White Blood Count 11.8 K/UL (4.8-10.8) H Red Blood Count 3.45 M/UL (4.20-5.40) L Hemoglobin 8.3 G/DL (12.0-16.0) L Hematocrit 26.4 % (37.0-47.0) L Mean Corpuscular Volume 77 FL (80-99) L Mean Corpuscular Hemoglobin 24.0 PG (27.0-31.0) L Mean Corpuscular Hemoglobin Concent 31.3 G/DL (32.0-36.0) L Red Cell Distribution Width 13.9 % (11.6-14.8) Platelet Count 184 K/UL (150-450) Mean Platelet Volume 6.2 FL (6.5-10.1) L Neutrophils (%) (Auto) % (45.0-75.0) Lymphocytes (%) (Auto) % (20.0-45.0) Monocytes (%) (Auto) % (1.0-10.0) Eosinophils (%) (Auto) % (0.0-3.0) Basophils (%) (Auto) % (0.0-2.0) Differential Total Cells Counted 100 Neutrophils % (Manual) 86 % (45-75) H Lymphocytes % (Manual) 9 % (20-45) L Monocytes % (Manual) 5 % (1-10) Eosinophils % (Manual) 0 % (0-3) Basophils % (Manual) 0 % (0-2) Band Neutrophils 0 % (0-8) Platelet Estimate Adequate Platelet Morphology Normal Hypochromasia 2+ Anisocytosis 1+ Microcytosis 1+ Sodium Level 137 MMOL/L (136-145) 139 MMOL/L (136-145) Potassium Level 6.6 MMOL/L (3.5-5.1) *H 5.3 MMOL/L (3.5-5.1) H Chloride Level 108 MMOL/L (98-107) H 108 MMOL/L (98-107) H Carbon Dioxide Level 19 MMOL/L (21-32) L 19 MMOL/L (21-32) L Anion Gap 10 mmol/L (5-15) 12 mmol/L (5-15) Blood Urea Nitrogen 34 mg/dL (7-18) H 33 mg/dL (7-18) H Creatinine 2.9 MG/DL (0.55-1.30) H 2.8 MG/DL (0.55-1.30) H Estimat Glomerular Filtration Rate 16.2 mL/min (>60) 16.8 mL/min (>60) Glucose Level 219 MG/DL (74-106) H 253 MG/DL (74-106) H Uric Acid 6.1 MG/DL (2.6-7.2) Calcium Level 8.9 MG/DL (8.5-10.1) 8.8 MG/DL (8.5-10.1) Phosphorus Level 4.0 MG/DL (2.5-4.9) Magnesium Level 1.9 MG/DL (1.8-2.4) Total Bilirubin 0.2 MG/DL (0.2-1.0) Aspartate Amino Transf (AST/SGOT) 35 U/L (15-37) Alanine Aminotransferase (ALT/SGPT) 53 U/L (12-78) Alkaline Phosphatase 200 U/L (46-116) H Total Creatine Kinase 48 U/L (26-308) Total Protein 7.0 G/DL (6.4-8.2) Albumin 2.6 G/DL (3.4-5.0) L Globulin 4.4 g/dL Albumin/Globulin Ratio 0.6 (1.0-2.7) L Arterial Blood pH 7.355 (7.350-7.450) Arterial Blood Partial Pressure CO2 28.5 mmHg (35.0-45.0) L Arterial Blood Partial Pressure O2 66.8 mmHg (75.0-100.0) L Arterial Blood HCO3 15.6 mmol/L (22.0-26.0) *L Arterial Blood Oxygen Saturation 91.5 % (95-100) L Arterial Blood Base Excess -8.9 (-2-2) L Eusebio Test Positive Urine Color Pale yellow Urine Appearance Clear Urine pH 5 (4.5-8.0) Urine Specific [place] 1.010 (1.005-1.035) Urine Protein 3+ (NEGATIVE) H Urine Glucose (UA) Negative (NEGATIVE) Urine Ketones Negative (NEGATIVE) Urine Blood Negative (NEGATIVE) Urine Nitrite Negative (NEGATIVE) Urine Bilirubin Negative (NEGATIVE) Urine Urobilinogen Normal MG/DL (0.0-1.0) Urine Leukocyte Esterase Negative (NEGATIVE) Urine RBC 0-2 /HPF (0 - 2) Urine WBC 0-2 /HPF (0 - 2) Urine Squamous Epithelial Cells Occasional /LPF Urine Bacteria Occasional /HPF (NONE) Urine Fine Granular Casts 0-2 /LPF (NONE) H Urine Eosinophils None seen (NONE SEEN) Urine Random Creatinine Pending Urine Random Microalbumin Pending Urine Random Sodium 99 mmol/L (20-110) Urine Creatinine 25.3 MG/DL (30.0-125.0) L Urine Microalbumin/Creatinine Ratio Pending Urine Potassium Timed 16 mmol/L (12-62) Test 05/11/18 04:08 White Blood Count 13.6 K/UL (4.8-10.8) H Red Blood Count 3.69 M/UL (4.20-5.40) L Hemoglobin 8.8 G/DL (12.0-16.0) L Hematocrit 27.9 % (37.0-47.0) L Mean Corpuscular Volume 76 FL (80-99) L Mean Corpuscular Hemoglobin 23.9 PG (27.0-31.0) L Mean Corpuscular Hemoglobin Concent 31.7 G/DL (32.0-36.0) L Red Cell Distribution Width 14.3 % (11.6-14.8) Platelet Count 206 K/UL (150-450) Mean Platelet Volume 5.9 FL (6.5-10.1) L Neutrophils (%) (Auto) 81.7 % (45.0-75.0) H Lymphocytes (%) (Auto) 12.9 % (20.0-45.0) L Monocytes (%) (Auto) 4.7 % (1.0-10.0) Eosinophils (%) (Auto) 0.4 % (0.0-3.0) Basophils (%) (Auto) 0.3 % (0.0-2.0) Sodium Level 143 MMOL/L (136-145) Potassium Level 3.9 MMOL/L (3.5-5.1) Chloride Level 108 MMOL/L (98-107) H Carbon Dioxide Level 23 MMOL/L (21-32) Anion Gap 12 mmol/L (5-15) Blood Urea Nitrogen 28 mg/dL (7-18) H Creatinine 2.6 MG/DL (0.55-1.30) H Estimat Glomerular Filtration Rate 18.3 mL/min (>60) Glucose Level 129 MG/DL (74-106) #H Hemoglobin A1c 9.2 % (4.3-6.0) H Calcium Level 8.5 MG/DL (8.5-10.1) Calcium (Send out) Pending Iron Level 18 ug/dL (50-175) L Total Iron Binding Capacity 287 ug/dL (250-450) Percent Iron Saturation 6 % (15-50) L Unsaturated Iron Binding 269 ug/dL (112-346) Total Bilirubin 0.2 MG/DL (0.2-1.0) Aspartate Amino Transf (AST/SGOT) 24 U/L (15-37) Alanine Aminotransferase (ALT/SGPT) 46 U/L (12-78) Alkaline Phosphatase 191 U/L (46-116) H Pro-B-Type Natriuretic Peptide 2593 pg/mL (0-125) H Total Protein 7.4 G/DL (6.4-8.2) Albumin 2.6 G/DL (3.4-5.0) L Globulin 4.8 g/dL Albumin/Globulin Ratio 0.5 (1.0-2.7) L Vitamin D 25-Hydroxy Pending 25-Hydroxy Vitamin D2 Pending 25-Hydroxy Vitamin D3 Pending Parathyroid Hormone (Intact) Pending Current Medications Medications (Trade) Dose Ordered Sig/Marshall Route PRN Reason Start Time Stop Time Status Last Admin Dose Admin Azithromycin (Zithromax) 500 mg DAILY ORAL 05/11/18 09:00 05/18/18 08:59 05/11/18 08:34 Ceftriaxone Sodium 1 gm/ Dextrose 55 ml @ 110 mls/hr DAILY IVPB 05/10/18 13:00 05/17/18 12:59 05/11/18 08:34 Dextrose (Dextrose 50%) 25 ml Q30M PRN IV Hypoglycemia 05/10/18 05:45 06/09/18 05:44 Dextrose (Dextrose 50%) 50 ml Q30M PRN IV Hypoglycemia 05/10/18 05:45 06/09/18 05:44 Furosemide (Lasix) 80 mg EVERY 12 HOURS IV 05/10/18 11:00 06/09/18 10:59 05/11/18 08:34 Heparin Sodium (Porcine) (Heparin 5000 units/ml) 5,000 units EVERY 8 HOURS SUBQ 05/10/18 06:00 06/09/18 05:59 05/11/18 05:30 Hydralazine HCl (Apresoline) 10 mg Q4H PRN IV sbp> 160 05/10/18 11:00 06/09/18 10:59 05/11/18 05:46 Insulin Aspart (NovoLOG) BEFORE MEALS AND HS SUBQ 05/10/18 06:30 06/09/18 06:29 05/11/18 05:31 Insulin Human Regular (NovoLIN R) 10 units ONCE IV 05/10/18 10:30 06/09/18 11:30 05/10/18 11:39 Ondansetron HCl (Zofran) 4 mg Q4H PRN IVP Nausea & Vomiting 05/10/18 12:15 06/09/18 12:14 05/10/18 12:22 Sodium Chloride 1,000 ml @ 75 mls/hr [id number] IV 05/10/18 16:00 06/09/18 15:59 05/11/18 05:29 Teto Jones MD May 11, 2018 09:14
--- NOTE | 2018-05-11 09:32 | Diagnostic Imaging Report ---
EXAM: XR Chest, 1 View CLINICAL HISTORY: DYSPNEA TECHNIQUE: Frontal view of the chest. COMPARISON: Chest x-ray 05/10/18 209 FINDINGS: Lungs: Hypoventilatory lungs. Bilateral perihilar interstitial airspace opacities are slightly improved from the prior study. Pleural space: Unremarkable. No pneumothorax. Heart: Cardiomegaly. Mediastinum: Unremarkable. Bones/joints: Unremarkable. IMPRESSION: Bilateral perihilar interstitial airspace opacities are slightly improved from the prior study.
--- NOTE | 2018-05-11 09:45 | NUR ---
NURSE NOTES: at bedside seen pt.,transfer orders given to Telemetry,pt's daughter informed re order,verbalized understanding
--- NOTE | 2018-05-11 09:48 | Pulmonology Progress Note ---
Assessment/Plan Problems: (1) Acute respiratory failure with hypoxia (2) Acute exacerbation of CHF (congestive heart failure) (3) Acute hyperkalemia (4) Diabetes mellitus (5) History of hypertension (6) Diabetic nephropathy Assessment/Plan CXR shows pulmonary jono dc iv fluids K is better add Lisinopril for BP continue lasix 80 TID sliding scale diabetic diet check cultures abx as per ID dc heparin S@ Subjective ROS Limited/Unobtainable: No Interval Events: coughing up some blood Allergies: Coded Allergies: No Known Allergies (Unverified , 05/09/18) Objective Last 24 Hour Vital Signs Date Time Temp Pulse Resp B/P (MAP) Pulse Ox O2 Delivery O2 Flow Rate FiO2 05/11/18 08:00 98.2 104 20 157/68 (97) 98 05/11/18 05:46 164/64 05/11/18 04:00 98.0 67 28 164/64 (97) 94 05/11/18 04:00 Bi-pap 05/11/18 04:00 15.0 05/11/18 03:42 76 05/11/18 00:52 184/76 05/11/18 00:00 97.9 74 24 184/76 (112) 97 05/11/18 00:00 40 05/11/18 00:00 Bi-pap 05/10/18 23:39 82 05/10/18 20:25 Venturi Mask 12.0 50 05/10/18 20:25 95 Venturi Mask 12.0 50 05/10/18 20:00 Bi-pap 05/10/18 19:27 76 05/10/18 18:25 167/72 05/10/18 16:00 97.7 67 23 167/72 (103) 92 05/10/18 16:00 63 05/10/18 16:00 Bi-pap 05/10/18 12:57 96 Venturi Mask 12.0 50 05/10/18 12:57 Venturi Mask 12.0 50 05/10/18 12:00 98.1 69 25 165/60 (95) 91 05/10/18 12:00 Bi-pap 05/10/18 12:00 40 05/10/18 12:00 73 05/10/18 10:35 57 19 92 Intake and Output 05/10/18 05/11/18 19:00 07:00 Intake Total 1855 ml 1027 ml Output Total 2500 ml 2600 ml Balance -645 ml -1573 ml Intake Oral 350 ml 240 ml IV Total 1505 ml 787 ml Output Urine Total 2500 ml 2600 ml # Bowel Movements 1 General Appearance: WD/WN HEENT: normocephalic, atraumatic Respiratory/Chest: chest wall non-tender, crackles/rales Breasts: no masses Cardiovascular: normal rate, regular rhythm Abdomen: normal bowel sounds, soft, non tender, non distended Genitourinary: normal external genitalia Extremities: no cyanosis Skin: no rash Neurologic/Psychiatric: field technician II-XII grossly normal, abnormal gait Lymphatic: no groin adenopathy Microbiology Date/Time Source Procedure Growth Status 05/09/18 23:14 Blood Peripheral Blood Culture - Preliminary NO GROWTH AFTER 24 HOURS Resulted 05/10/18 12:30 Nasopharynx Influenza Types A,B Antigen (KRISSY) - Final Complete Laboratory Tests 05/10/18 09:55: White Blood Count 11.8H, Red Blood Count 3.45L, Hemoglobin 8.3L, Hematocrit 26.4L, Mean Corpuscular Volume 77L, Mean Corpuscular Hemoglobin 24.0L, Mean Corpuscular Hemoglobin Concent 31.3L, Red Cell Distribution Width 13.9, Platelet Count 184, Mean Platelet Volume 6.2L, Neutrophils (%) (Auto) , Lymphocytes (%) (Auto) , Monocytes (%) (Auto) , Eosinophils (%) (Auto) , Basophils (%) (Auto) , Differential Total Cells Counted 100, Neutrophils % ( Manual) 86H, Lymphocytes % (Manual) 9L, Monocytes % (Manual) 5, Eosinophils % ( Manual) 0, Basophils % (Manual) 0, Band Neutrophils 0, Platelet Estimate Adequate, Platelet Morphology Normal, Hypochromasia 2+, Anisocytosis 1+, Microcytosis 1+, Sodium Level 137, Potassium Level 6.6*H, Chloride Level 108H, Carbon Dioxide Level 19L, Anion Gap 10, Blood Urea Nitrogen 34H, Creatinine 2.9H , Estimat Glomerular Filtration Rate 16.2, Glucose Level 219H, Uric Acid 6.1, Calcium Level 8.9, Phosphorus Level 4.0, Magnesium Level 1.9, Total Bilirubin 0.2, Aspartate Amino Transf (AST/SGOT) 35, Alanine Aminotransferase (ALT/SGPT) 53, Alkaline Phosphatase 200H, Total Creatine Kinase 48, Total Protein 7.0, Albumin 2.6L, Globulin 4.4, Albumin/Globulin Ratio 0.6L 05/10/18 10:35: Arterial Blood pH 7.355, Arterial Blood Partial Pressure CO2 28.5L, Arterial Blood Partial Pressure O2 66.8L, Arterial Blood HCO3 15.6*L, Arterial Blood Oxygen Saturation 91.5L, Arterial Blood Base Excess -8.9L, Eusebio Test Positive 05/10/18 12:30: Urine Color Pale yellow, Urine Appearance Clear, Urine pH 5, Urine Specific [place] 1.010, Urine Protein 3+H, Urine Glucose (UA) Negative, Urine Ketones Negative, Urine Blood Negative, Urine Nitrite Negative, Urine Bilirubin Negative , Urine Urobilinogen Normal, Urine Leukocyte Esterase Negative, Urine RBC 0-2, Urine WBC 0-2, Urine Squamous Epithelial Cells Occasional, Urine Bacteria Occasional, Urine Fine Granular Casts 0-2H, Urine Eosinophils None seen, Urine Random Creatinine [Pending], Urine Random Microalbumin [Pending], Urine Random Sodium 99, Urine Creatinine 25.3L, Urine Microalbumin/Creatinine Ratio [Pending] , Urine Potassium Timed 16 05/10/18 14:10: Sodium Level 139, Potassium Level 5.3H, Chloride Level 108H, Carbon Dioxide Level 19L, Anion Gap 12, Blood Urea Nitrogen 33H, Creatinine 2.8H, Estimat Glomerular Filtration Rate 16.8, Glucose Level 253H, Calcium Level 8.8 05/11/18 04:08: White Blood Count 13.6H, Red Blood Count 3.69L, Hemoglobin 8.8L, Hematocrit 27.9L, Mean Corpuscular Volume 76L, Mean Corpuscular Hemoglobin 23.9L, Mean Corpuscular Hemoglobin Concent 31.7L, Red Cell Distribution Width 14.3, Platelet Count 206, Mean Platelet Volume 5.9L, Neutrophils (%) (Auto) 81.7H, Lymphocytes (%) (Auto) 12.9L, Monocytes (%) (Auto) 4.7, Eosinophils (%) (Auto) 0.4, Basophils (%) (Auto) 0.3, Sodium Level 143, Potassium Level 3.9, Chloride Level 108H, Carbon Dioxide Level 23, Anion Gap 12, Blood Urea Nitrogen 28H, Creatinine 2.6H, Estimat Glomerular Filtration Rate 18.3, Glucose Level 129#H, Hemoglobin A1c 9.2H, Calcium Level 8.5, Calcium (Send out) [Pending], Iron Level 18L, Total Iron Binding Capacity 287, Percent Iron Saturation 6L, Unsaturated Iron Binding 269, Total Bilirubin 0.2, Aspartate Amino Transf (AST/ SGOT) 24, Alanine Aminotransferase (ALT/SGPT) 46, Alkaline Phosphatase 191H, Pro -B-Type Natriuretic Peptide 2593H, Total Protein 7.4, Albumin 2.6L, Globulin 4.8 , Albumin/Globulin Ratio 0.5L, Vitamin D 25-Hydroxy [Pending], 25-Hydroxy Vitamin D2 [Pending], 25-Hydroxy Vitamin D3 [Pending], Parathyroid Hormone ( Intact) [Pending] Current Medications Medications (Trade) Dose Ordered Sig/Marshall Route PRN Reason Start Time Stop Time Status Last Admin Dose Admin Azithromycin (Zithromax) 500 mg DAILY ORAL 05/11/18 09:00 05/18/18 08:59 05/11/18 08:34 Ceftriaxone Sodium 1 gm/ Dextrose 55 ml @ 110 mls/hr DAILY IVPB 05/10/18 13:00 05/17/18 12:59 05/11/18 08:34 Dextrose (Dextrose 50%) 25 ml Q30M PRN IV Hypoglycemia 05/10/18 05:45 06/09/18 05:44 Dextrose (Dextrose 50%) 50 ml Q30M PRN IV Hypoglycemia 05/10/18 05:45 06/09/18 05:44 Furosemide (Lasix) 80 mg EVERY 12 HOURS IV 05/10/18 11:00 06/09/18 10:59 05/11/18 08:34 Heparin Sodium (Porcine) (Heparin 5000 units/ml) 5,000 units EVERY 8 HOURS SUBQ 05/10/18 06:00 06/09/18 05:59 05/11/18 05:30 Hydralazine HCl (Apresoline) 10 mg Q4H PRN IV sbp> 160 05/10/18 11:00 06/09/18 10:59 05/11/18 05:46 Insulin Aspart (NovoLOG) BEFORE MEALS AND HS SUBQ 05/10/18 06:30 06/09/18 06:29 05/11/18 05:31 Insulin Human Regular (NovoLIN R) 10 units ONCE IV 05/10/18 10:30 06/09/18 11:30 05/10/18 11:39 Ondansetron HCl (Zofran) 4 mg Q4H PRN IVP Nausea & Vomiting 05/10/18 12:15 06/09/18 12:14 05/10/18 12:22 Sodium Chloride 1,000 ml @ 75 mls/hr [id number] IV 05/10/18 16:00 06/09/18 15:59 05/11/18 05:29 Jossue Hills MD May 11, 2018 09:48
--- NOTE | 2018-05-11 10:50 | NUR ---
TRANSFER TO FLOOR: Patient transferred to Telemetry 204-1, per bed awake,alert oriented in no resp distress or discomfort accompanied by daughter. Report given to Chris RN. Belongings and medications given to receiving RN . Family and or S/O informed of transfer.
--- NOTE | 2018-05-11 11:08 | NUR ---
NURSE NOTES: Patient came in from [facility] via bed. Report received from ROB Toney. Belonging only yellow left earing, signed and filed. Patient on Venturi mask at 15L, denies any SOB or pain. IV on L FA 22g intact, running NS at 75. Patient speaker, daughter at bedside and speaks Swazi. Bed on lowest position, side rails upx2, brakes engaged. Call light within easy reach.
--- NOTE | 2018-05-11 11:10 | NUR ---
NURSE NOTES: Patient has a FC, intact, draining light urine.
[2018-05-11 12:00] VITALS: BP 170/80
--- NOTE | 2018-05-11 14:37 | Internal Med Progress Note ---
Subjective Date of Service: May 11, 2018 Physician Name Mu Brooks Attending Physician Maico Jama MD Current Medications Medications (Trade) Dose Ordered Sig/Marshall Route PRN Reason Start Time Stop Time Status Last Admin Dose Admin Azithromycin (Zithromax) 500 mg DAILY ORAL 05/12/18 09:00 05/18/18 08:59 Ceftriaxone Sodium 1 gm/ Dextrose 55 ml @ 110 mls/hr DAILY IVPB 05/12/18 09:00 05/17/18 12:59 Dextrose (Dextrose 50%) 25 ml Q30M PRN IV Hypoglycemia 05/11/18 11:15 06/09/18 05:44 Dextrose (Dextrose 50%) 50 ml Q30M PRN IV Hypoglycemia 05/11/18 11:15 06/09/18 05:44 Furosemide (Lasix) 80 mg EVERY 12 HOURS IV 05/11/18 21:00 06/09/18 10:59 Hydralazine HCl (Apresoline) 10 mg Q4H PRN IV sbp> 160 05/11/18 11:00 06/09/18 10:59 05/11/18 14:14 Insulin Aspart (NovoLOG) BEFORE MEALS AND HS SUBQ 05/11/18 11:30 06/09/18 06:29 05/11/18 12:53 Lisinopril (Prinivil) 40 mg DAILY ORAL 05/12/18 09:00 06/11/18 08:59 Ondansetron HCl (Zofran) 4 mg Q4H PRN IVP Nausea & Vomiting 05/11/18 11:00 06/09/18 10:59 Allergies: Coded Allergies: No Known Allergies (Unverified , 05/09/18) ROS Limited/Unobtainable: No Constitutional: Reports: no symptoms HEENT: Reports: no symptoms Cardiovascular: Reports: no symptoms Respiratory: Reports: shortness of breath Gastrointestinal/Abdominal: Reports: no symptoms Genitourinary: Reports: no symptoms Neurologic/Psychiatric: Reports: no symptoms Subjective 68 YO F admitted with shortness of breath. Now respiratory failure. Cover for Int Devon-Dr Jama Objective Last Vital Signs Date Time Temp Pulse Resp B/P (MAP) Pulse Ox O2 Delivery O2 Flow Rate FiO2 05/11/18 14:14 170/80 05/11/18 09:05 Venturi Mask 12.0 50 05/11/18 09:05 96 05/11/18 08:00 99 05/11/18 08:00 98.2 20 Laboratory Tests Test 05/11/18 04:08 White Blood Count 13.6 K/UL (4.8-10.8) H Red Blood Count 3.69 M/UL (4.20-5.40) L Hemoglobin 8.8 G/DL (12.0-16.0) L Hematocrit 27.9 % (37.0-47.0) L Mean Corpuscular Volume 76 FL (80-99) L Mean Corpuscular Hemoglobin 23.9 PG (27.0-31.0) L Mean Corpuscular Hemoglobin Concent 31.7 G/DL (32.0-36.0) L Red Cell Distribution Width 14.3 % (11.6-14.8) Platelet Count 206 K/UL (150-450) Mean Platelet Volume 5.9 FL (6.5-10.1) L Neutrophils (%) (Auto) 81.7 % (45.0-75.0) H Lymphocytes (%) (Auto) 12.9 % (20.0-45.0) L Monocytes (%) (Auto) 4.7 % (1.0-10.0) Eosinophils (%) (Auto) 0.4 % (0.0-3.0) Basophils (%) (Auto) 0.3 % (0.0-2.0) Sodium Level 143 MMOL/L (136-145) Potassium Level 3.9 MMOL/L (3.5-5.1) Chloride Level 108 MMOL/L (98-107) H Carbon Dioxide Level 23 MMOL/L (21-32) Anion Gap 12 mmol/L (5-15) Blood Urea Nitrogen 28 mg/dL (7-18) H Creatinine 2.6 MG/DL (0.55-1.30) H Estimat Glomerular Filtration Rate 18.3 mL/min (>60) Glucose Level 129 MG/DL (74-106) #H Hemoglobin A1c 9.2 % (4.3-6.0) H Calcium Level 8.5 MG/DL (8.5-10.1) Calcium (Send out) Pending Iron Level 18 ug/dL (50-175) L Total Iron Binding Capacity 287 ug/dL (250-450) Percent Iron Saturation 6 % (15-50) L Unsaturated Iron Binding 269 ug/dL (112-346) Total Bilirubin 0.2 MG/DL (0.2-1.0) Aspartate Amino Transf (AST/SGOT) 24 U/L (15-37) Alanine Aminotransferase (ALT/SGPT) 46 U/L (12-78) Alkaline Phosphatase 191 U/L (46-116) H Pro-B-Type Natriuretic Peptide 2593 pg/mL (0-125) H Total Protein 7.4 G/DL (6.4-8.2) Albumin 2.6 G/DL (3.4-5.0) L Globulin 4.8 g/dL Albumin/Globulin Ratio 0.5 (1.0-2.7) L Vitamin D 25-Hydroxy Pending 25-Hydroxy Vitamin D2 Pending 25-Hydroxy Vitamin D3 Pending Parathyroid Hormone (Intact) Pending Microbiology Date/Time Source Procedure Growth Status 05/09/18 23:14 Blood Peripheral Blood Culture - Preliminary NO GROWTH AFTER 24 HOURS Resulted 05/09/18 23:14 Blood Peripheral Blood Culture - Preliminary NO GROWTH AFTER 24 HOURS Resulted 05/10/18 12:30 Nasopharynx Influenza Types A,B Antigen (KRISSY) - Final Complete Intake and Output 05/10/18 05/11/18 19:00 07:00 Intake Total 1855 ml 1102 ml Output Total 2500 ml 2600 ml Balance -645 ml -1498 ml Intake Oral 350 ml 240 ml IV Total 1505 ml 862 ml Output Urine Total 2500 ml 2600 ml # Bowel Movements 1 Objective PHYSICAL EXAMINATION: VITAL SIGNS: On admission, temperature 97.5, pulse of 88, respirations 24, blood pressure 174/56. GENERAL: The patient is awake, responsive, not in no acute distress. HEAD AND NECK: Pupils equal and reactive to light. Extraocular movements are intact. Neck was supple. No JVD. LUNGS: Good air entry. No wheezes or rhonchi. Decreased in bases. Occasional crackles in the bases. HEART: S1 and S2. Regular rhythm. ABDOMEN: Soft, nondistended, nontender. Positive bowel sounds. The patient has epigastric tenderness. EXTREMITIES: No cyanosis, clubbing, edema. NEUROLOGIC: Cranial nerves II through XII grossly intact. Motor is 5/5 in all extremities. Assessment/Plan Assessment/Plan ASSESSMENT: 1. Sepsis. 2. Acute hypoxemic respiratory failure. 3. Acute CHF exacerbation. 4. Hyperkalemia. 5. Hyponatremia. 6. Diabetes type 2. 7. Hypertension. 8. Diabetic nephropathy. PLAN: 1. Admit the patient to [facility]. 2. We will follow up laboratory, cultures. 3. We will monitor potassium level closely. 4. Kayexalate, D50, insulin. 5. Discussed with Dr. Hills, Pulmonary Critical Care and Dr. Carlos Alberto Jasmine from Nephrology and Dr. Carlo Ferrari from Cardiology. 6. Follow up with 2D echo. 7. Code status is Full Code. 8. DVT prophylaxis. Heparin subcutaneous. 9. Continue ceftriaxone and azithromycin Mu Brooks MD May 11, 2018 14:37
--- NOTE | 2018-05-11 15:05 | Cardiology Progress Note ---
Assessment/Plan Assessment/Plan [id number] likey pulm infection or bronchisit ef normal on my reviwed of some o f faustino echo images has dm and htn adn renal failure will check ekg and cardiac enzyme Objective Last 24 Hour Vital Signs Date Time Temp Pulse Resp B/P (MAP) Pulse Ox O2 Delivery O2 Flow Rate FiO2 05/11/18 14:14 170/80 05/11/18 09:05 Venturi Mask 12.0 50 05/11/18 09:05 96 Venturi Mask 12.0 50 05/11/18 08:00 99 05/11/18 08:00 Bi-pap 05/11/18 08:00 98.2 104 20 157/68 (97) 98 05/11/18 05:46 164/64 05/11/18 04:00 98.0 67 28 164/64 (97) 94 05/11/18 04:00 Bi-pap 05/11/18 04:00 15.0 05/11/18 03:42 76 05/11/18 00:52 184/76 05/11/18 00:00 97.9 74 24 184/76 (112) 97 05/11/18 00:00 40 05/11/18 00:00 Bi-pap 05/10/18 23:39 82 05/10/18 20:25 Venturi Mask 12.0 50 05/10/18 20:25 95 Venturi Mask 12.0 50 05/10/18 20:00 Bi-pap 05/10/18 19:27 76 05/10/18 18:25 167/72 05/10/18 16:00 97.7 67 23 167/72 (103) 92 05/10/18 16:00 63 05/10/18 16:00 Bi-pap Intake and Output 05/10/18 05/11/18 19:00 07:00 Intake Total 1855 ml 1102 ml Output Total 2500 ml 2600 ml Balance -645 ml -1498 ml Intake Oral 350 ml 240 ml IV Total 1505 ml 862 ml Output Urine Total 2500 ml 2600 ml # Bowel Movements 1 Laboratory Tests Test 05/11/18 04:08 White Blood Count 13.6 K/UL (4.8-10.8) H Red Blood Count 3.69 M/UL (4.20-5.40) L Hemoglobin 8.8 G/DL (12.0-16.0) L Hematocrit 27.9 % (37.0-47.0) L Mean Corpuscular Volume 76 FL (80-99) L Mean Corpuscular Hemoglobin 23.9 PG (27.0-31.0) L Mean Corpuscular Hemoglobin Concent 31.7 G/DL (32.0-36.0) L Red Cell Distribution Width 14.3 % (11.6-14.8) Platelet Count 206 K/UL (150-450) Mean Platelet Volume 5.9 FL (6.5-10.1) L Neutrophils (%) (Auto) 81.7 % (45.0-75.0) H Lymphocytes (%) (Auto) 12.9 % (20.0-45.0) L Monocytes (%) (Auto) 4.7 % (1.0-10.0) Eosinophils (%) (Auto) 0.4 % (0.0-3.0) Basophils (%) (Auto) 0.3 % (0.0-2.0) Sodium Level 143 MMOL/L (136-145) Potassium Level 3.9 MMOL/L (3.5-5.1) Chloride Level 108 MMOL/L (98-107) H Carbon Dioxide Level 23 MMOL/L (21-32) Anion Gap 12 mmol/L (5-15) Blood Urea Nitrogen 28 mg/dL (7-18) H Creatinine 2.6 MG/DL (0.55-1.30) H Estimat Glomerular Filtration Rate 18.3 mL/min (>60) Glucose Level 129 MG/DL (74-106) #H Hemoglobin A1c 9.2 % (4.3-6.0) H Calcium Level 8.5 MG/DL (8.5-10.1) Calcium (Send out) Pending Iron Level 18 ug/dL (50-175) L Total Iron Binding Capacity 287 ug/dL (250-450) Percent Iron Saturation 6 % (15-50) L Unsaturated Iron Binding 269 ug/dL (112-346) Total Bilirubin 0.2 MG/DL (0.2-1.0) Aspartate Amino Transf (AST/SGOT) 24 U/L (15-37) Alanine Aminotransferase (ALT/SGPT) 46 U/L (12-78) Alkaline Phosphatase 191 U/L (46-116) H Pro-B-Type Natriuretic Peptide 2593 pg/mL (0-125) H Total Protein 7.4 G/DL (6.4-8.2) Albumin 2.6 G/DL (3.4-5.0) L Globulin 4.8 g/dL Albumin/Globulin Ratio 0.5 (1.0-2.7) L Vitamin D 25-Hydroxy Pending 25-Hydroxy Vitamin D2 Pending 25-Hydroxy Vitamin D3 Pending Parathyroid Hormone (Intact) Pending Microbiology Date/Time Source Procedure Growth Status 05/09/18 23:14 Blood Peripheral Blood Culture - Preliminary NO GROWTH AFTER 24 HOURS Resulted 05/09/18 23:14 Blood Peripheral Blood Culture - Preliminary NO GROWTH AFTER 24 HOURS Resulted 05/10/18 12:30 Nasopharynx Influenza Types A,B Antigen (KRISSY) - Final Complete Theodore Ashraf MD May 11, 2018 15:05
[2018-05-11 16:00] VITALS: BP 160/65
--- NOTE | 2018-05-11 17:11 | Nephrology Progress Note ---
Assessment/Plan Problem List: (1) Acute exacerbation of CHF (congestive heart failure) (2) Diabetes mellitus (3) History of hypertension (4) Diabetic nephropathy Assessment: stable (5) Acute hyperkalemia Assessment: ok now Plan check PTH follow BMP Discussed with son Subjective Subjective feels ok Objective Objective Last 24 Hour Vital Signs Date Time Temp Pulse Resp B/P (MAP) Pulse Ox O2 Delivery O2 Flow Rate FiO2 05/11/18 14:14 170/80 05/11/18 12:00 96 05/11/18 12:00 99.2 96 20 170/80 (110) 98 05/11/18 12:00 Bi-pap 05/11/18 09:05 Venturi Mask 12.0 50 05/11/18 09:05 96 Venturi Mask 12.0 50 05/11/18 08:00 99 05/11/18 08:00 Bi-pap 05/11/18 08:00 98.2 104 20 157/68 (97) 98 05/11/18 05:46 164/64 05/11/18 04:00 98.0 67 28 164/64 (97) 94 05/11/18 04:00 Bi-pap 05/11/18 04:00 15.0 05/11/18 03:42 76 05/11/18 00:52 184/76 05/11/18 00:00 97.9 74 24 184/76 (112) 97 05/11/18 00:00 40 05/11/18 00:00 Bi-pap 05/10/18 23:39 82 05/10/18 20:25 Venturi Mask 12.0 50 05/10/18 20:25 95 Venturi Mask 12.0 50 05/10/18 20:00 Bi-pap 05/10/18 19:27 76 05/10/18 18:25 167/72 Intake and Output 05/10/18 05/11/18 19:00 07:00 Intake Total 1855 ml 1102 ml Output Total 2500 ml 2600 ml Balance -645 ml -1498 ml Intake Oral 350 ml 240 ml IV Total 1505 ml 862 ml Output Urine Total 2500 ml 2600 ml # Bowel Movements 1 Laboratory Tests 05/11/18 04:08: White Blood Count 13.6H, Red Blood Count 3.69L, Hemoglobin 8.8L, Hematocrit 27.9L, Mean Corpuscular Volume 76L, Mean Corpuscular Hemoglobin 23.9L, Mean Corpuscular Hemoglobin Concent 31.7L, Red Cell Distribution Width 14.3, Platelet Count 206, Mean Platelet Volume 5.9L, Neutrophils (%) (Auto) 81.7H, Lymphocytes (%) (Auto) 12.9L, Monocytes (%) (Auto) 4.7, Eosinophils (%) (Auto) 0.4, Basophils (%) (Auto) 0.3, Sodium Level 143, Potassium Level 3.9, Chloride Level 108H, Carbon Dioxide Level 23, Anion Gap 12, Blood Urea Nitrogen 28H, Creatinine 2.6H, Estimat Glomerular Filtration Rate 18.3, Glucose Level 129#H, Hemoglobin A1c 9.2H, Calcium Level 8.5, Calcium (Send out) [Pending], Iron Level 18L, Total Iron Binding Capacity 287, Percent Iron Saturation 6L, Unsaturated Iron Binding 269, Total Bilirubin 0.2, Aspartate Amino Transf (AST/ SGOT) 24, Alanine Aminotransferase (ALT/SGPT) 46, Alkaline Phosphatase 191H, Pro -B-Type Natriuretic Peptide 2593H, Total Protein 7.4, Albumin 2.6L, Globulin 4.8 , Albumin/Globulin Ratio 0.5L, Vitamin D 25-Hydroxy [Pending], 25-Hydroxy Vitamin D2 [Pending], 25-Hydroxy Vitamin D3 [Pending], Parathyroid Hormone ( Intact) [Pending] 05/11/18 15:45: Troponin I 0.017 Height (Feet): 5 Height (Inches): 2.00 Weight (Pounds): 139 Cardiovascular: normal rate Respiratory/Chest: lungs clear Extremities: other - no edema Carlos Alberto Jasmine MD May 11, 2018 17:11
--- NOTE | 2018-05-11 17:12 | Cardiology Progress Note ---
Assessment/Plan Assessment/Plan The patient is seen and examined, full consult note will be dictated soon. Objective Last 24 Hour Vital Signs Date Time Temp Pulse Resp B/P (MAP) Pulse Ox O2 Delivery O2 Flow Rate FiO2 05/11/18 14:14 170/80 05/11/18 12:00 96 05/11/18 12:00 99.2 96 20 170/80 (110) 98 05/11/18 12:00 Bi-pap 05/11/18 09:05 Venturi Mask 12.0 50 05/11/18 09:05 96 Venturi Mask 12.0 50 05/11/18 08:00 99 05/11/18 08:00 Bi-pap 05/11/18 08:00 98.2 104 20 157/68 (97) 98 05/11/18 05:46 164/64 05/11/18 04:00 98.0 67 28 164/64 (97) 94 05/11/18 04:00 Bi-pap 05/11/18 04:00 15.0 05/11/18 03:42 76 05/11/18 00:52 184/76 05/11/18 00:00 97.9 74 24 184/76 (112) 97 05/11/18 00:00 40 05/11/18 00:00 Bi-pap 05/10/18 23:39 82 05/10/18 20:25 Venturi Mask 12.0 50 05/10/18 20:25 95 Venturi Mask 12.0 50 05/10/18 20:00 Bi-pap 05/10/18 19:27 76 05/10/18 18:25 167/72 Intake and Output 05/10/18 05/11/18 18:59 06:59 Intake Total 1780 ml 1102 ml Output Total 2500 ml 2600 ml Balance -720 ml -1498 ml Intake Oral 350 ml 240 ml IV Total 1430 ml 862 ml Output Urine Total 2500 ml 2600 ml # Bowel Movements 1 Laboratory Tests Test 05/11/18 04:08 05/11/18 15:45 White Blood Count 13.6 K/UL (4.8-10.8) H Red Blood Count 3.69 M/UL (4.20-5.40) L Hemoglobin 8.8 G/DL (12.0-16.0) L Hematocrit 27.9 % (37.0-47.0) L Mean Corpuscular Volume 76 FL (80-99) L Mean Corpuscular Hemoglobin 23.9 PG (27.0-31.0) L Mean Corpuscular Hemoglobin Concent 31.7 G/DL (32.0-36.0) L Red Cell Distribution Width 14.3 % (11.6-14.8) Platelet Count 206 K/UL (150-450) Mean Platelet Volume 5.9 FL (6.5-10.1) L Neutrophils (%) (Auto) 81.7 % (45.0-75.0) H Lymphocytes (%) (Auto) 12.9 % (20.0-45.0) L Monocytes (%) (Auto) 4.7 % (1.0-10.0) Eosinophils (%) (Auto) 0.4 % (0.0-3.0) Basophils (%) (Auto) 0.3 % (0.0-2.0) Sodium Level 143 MMOL/L (136-145) Potassium Level 3.9 MMOL/L (3.5-5.1) Chloride Level 108 MMOL/L (98-107) H Carbon Dioxide Level 23 MMOL/L (21-32) Anion Gap 12 mmol/L (5-15) Blood Urea Nitrogen 28 mg/dL (7-18) H Creatinine 2.6 MG/DL (0.55-1.30) H Estimat Glomerular Filtration Rate 18.3 mL/min (>60) Glucose Level 129 MG/DL (74-106) #H Hemoglobin A1c 9.2 % (4.3-6.0) H Calcium Level 8.5 MG/DL (8.5-10.1) Calcium (Send out) Pending Iron Level 18 ug/dL (50-175) L Total Iron Binding Capacity 287 ug/dL (250-450) Percent Iron Saturation 6 % (15-50) L Unsaturated Iron Binding 269 ug/dL (112-346) Total Bilirubin 0.2 MG/DL (0.2-1.0) Aspartate Amino Transf (AST/SGOT) 24 U/L (15-37) Alanine Aminotransferase (ALT/SGPT) 46 U/L (12-78) Alkaline Phosphatase 191 U/L (46-116) H Pro-B-Type Natriuretic Peptide 2593 pg/mL (0-125) H Total Protein 7.4 G/DL (6.4-8.2) Albumin 2.6 G/DL (3.4-5.0) L Globulin 4.8 g/dL Albumin/Globulin Ratio 0.5 (1.0-2.7) L Vitamin D 25-Hydroxy Pending 25-Hydroxy Vitamin D2 Pending 25-Hydroxy Vitamin D3 Pending Parathyroid Hormone (Intact) Pending Troponin I 0.017 ng/mL (0.000-0.056) Microbiology Date/Time Source Procedure Growth Status 05/09/18 23:14 Blood Peripheral Blood Culture - Preliminary NO GROWTH AFTER 24 HOURS Resulted 05/09/18 23:14 Blood Peripheral Blood Culture - Preliminary NO GROWTH AFTER 24 HOURS Resulted 05/10/18 12:30 Nasopharynx Influenza Types A,B Antigen (KRISSY) - Final Complete Carlo Ferrari MD May 11, 2018 17:12
[2018-05-11] MEDS ORDERED: HydrALAZINE 50mg tab ORAL SCH (18:15)
[2018-05-11] MEDS ORDERED: dilTIAZem HCl CD 240mg cap ORAL SCH (18:30)
--- NOTE | 2018-05-11 19:20 | NUR ---
NURSE NOTES:Patient Received from Saadia AyersPatient A/A/OX4 Patient denies any pain at this time . no s/s of distress noted . LFA G# 20 H/L .Patent and intact fernandez catheter draining to yellow urine 100 cc. call light withen reach . bed in low position at all times. will continue monitor
--- NOTE | 2018-05-11 19:43 | NUR ---
HAND-OFF: Report given to ROB Jackson. Patient in stable condition.
[2018-05-11 20:00] VITALS: BP 169/72
--- NOTE | 2018-05-11 20:13 | Cardiology Report ---
APPROVED REPORT EXAM: Two-dimensional and M-mode echocardiogram with Doppler and color Doppler. INDICATION CAD M-Mode DIMENSIONS IVSd1.2 (0.7-1.1cm)Left Atrium (MM)3.5 (1.6-4.0cm) LVDd4.8 (3.5-5.6cm)Aortic Root2.6 (2.0-3.7cm) PWd1.2 (0.7-1.1cm)Aortic Cusp Exc.1.7 (1.5-2.0cm) LVDs2.9 (2.5-4.0cm) PWs1.3 cm Normal left ventricular chamber size, systolic function and wall motion. Left ventricular ejection fraction estimated to be 60%. No evidence of left ventricular hypertrophy. Anterior Echo-free space, may be due to pericardial fat or effusion. All other cardiac chamber sizes are within normal limits. Focal aortic valve sclerosis with adequate cusp excursion. Thickened mitral valve leaflets with normal excursion. Mitral annulus and aortic root calcification. Pulmonic valve not well visualized. Normal tricuspid valve structure. IVC at normal size with slight physiologic collapse. A color flow and spectral Doppler study was performed and revealed: Trace to mild mitral regurgitation. Mitral inflow indicates pseudo-normal left ventricular diastolic dysfunction or grade II LVDD, consistent with moderately elevated intracardiac filling pressure. Trace tricuspid regurgitation. Tricuspid systolic velocities suggests peak right ventricular systolic pressure of 25 mmHg. Pulmonic regurgitation present.
--- NOTE | 2018-05-11 21:30 | Consultation ---
DATE OF CONSULTATION: 05/11/2018 CARDIAC CONSULTATION CONSULTING PHYSICIAN: Theodore Ashraf M.D. REFERRING PHYSICIANS: 1. Maico Jama M.D. 2. Jossue Hills M.D. REASON FOR REFERRAL: Possible shortness of breath. HISTORY OF PRESENT ILLNESS: This is an elderly female, whose information is obtained from me discussing with two of family members as well as review of the patient's chart. History of high blood pressure, diabetes. She came into the hospital because of fever, chills, nausea, vomiting, shortness of breath, and elevated blood pressure. On the day of admission, she vomited 2 times apparently. She had shaking chills. She was coughing that apparently was nonproductive. Vomiting was not bloody or bilious apparently. Does not really have any chest pain. Does not usually have any shortness of breath on exertion. She did have some shortness of breath two weeks earlier. No pain, pressure, tightness, or heaviness in her chest. She does have palpitation. There is no dizziness or lightheadedness. PAST MEDICAL HISTORY: Positive for diabetes and high blood pressure. No history of heart attack. No cancer. No stroke. No hepatitis or tuberculosis. No asthma or emphysema. No ulcers. No kidney problems, liver problems, thyroid problems, anemia, arthritis, HIV, or AIDS. ALLERGIES: None. SOCIAL HISTORY: She never smoked or drank alcoholic beverages. REVIEW OF SYSTEMS: GASTROINTESTINAL: Negative except for what was mentioned in HPI, with some bouts of nausea and vomiting. No bloody or black stool. GENITOURINARY: Negative. PULMONARY: Positive for coughing. CONSTITUTIONAL: Fevers and chills. PHYSICAL EXAMINATION: GENERAL: Shows to be obese, elderly female, in no respiratory distress. VITAL SIGNS: The patient's blood pressure anywhere between 157/68 to 170/80. NECK: Supple. No jugular venous distention. LUNGS: Clear to auscultation and percussion. CARDIAC: S1 is normal. S2 is normal. Regular rate and rhythm. No heaves or thrills noted. ABDOMEN: Soft, obese. Positive bowel sounds. EXTREMITIES: There is no edema. No clubbing or cyanosis. NEUROLOGICAL: She is awake, alert, and responsive. LABORATORY VALUES: Her laboratories, white count 13.6, hemoglobin 8.8, and platelet count of 206,000. Blood gases, pH of 7.35, pCO2 of 29, pO2 of 67, bicarbonate of 16. Sodium is 143, potassium 3.9, chloride 108, bicarbonate 22, BUN 28, creatinine 2.6, glucose of 129. A1c of 9.2. Iron of 18, 6% saturation, and alkaline phosphatase 191. ProBNP of 2590. Urinalysis is fairly unremarkable and troponin of 0.034 on the 21st; levels were not repeated. A chest x-ray performed shows hypoventilatory lungs, bibasilar perihilar interstitial opacities, slightly improved compared to prior examination and her electrocardiogram, I am unable to find any EKGs to review. An echocardiogram was performed, I actually reviewed, the LV function appears to be relatively normal. ASSESSMENT AND PLAN: 1. Shortness of breath. 2. Cough, questionable pneumonia or bronchitis. 3. Diabetes mellitus, long-term poor control. 4. History of hypertension. 5. Renal insufficiency. 6. Obesity. Dr. Hills and Dr. Jama, this patient was seen in cardiac consultation. LV function appears relatively good. EKG will be performed. First set of cardiac enzymes were negative. EKG will be performed. Her cardiac enzymes will be repeated. Natriuretic peptide maybe only elevation secondary to renal failure and is probably nondiagnostic. I will follow the patient along with you, however, I would suspect that most of her issues are from a pulmonary/infectious point of view, and not necessarily any cardiac abnormalities. A component of diastolic dysfunction of course could not be excluded, but further recommendations will depend on the level of repeated cardiac enzymes and EKGs. Theodore Ashraf M.D. DR: Max JOB#: [id number] CC:
[2018-05-11] MEDS: HydrALAZINE 50mg tab ORAL SCH (21:38)
[2018-05-11] MEDS: Promethazine/Codeine 5ml UD ORAL PRN (21:55)
--- NOTE | 2018-05-11 23:00 | Consultation ---
DATE OF CONSULTATION: 05/11/2018 NOTE: "INCOMPLETE DICTATION" CARDIOLOGY CONSULTATION CONSULTING PHYSICIAN: Carlo Ferrari M.D. REFERRING PHYSICIAN: Maico Jama M.D. REASON FOR CONSULTATION: Management of shortness of breath. HISTORY OF PRESENT ILLNESS: The patient is a very unfortunate 68-year-old female, who presents to the hospital with complaints of fever, chills, nausea, and vomiting, as well as shortness of breath. The patient states that the above symptoms have been going on for about a day. She also has a nonproductive cough. Carlo Ferrari M.D. DR: CHINO JOB#: [id number] CC:
--- NOTE | 2018-05-11 23:30 | Consultation ---
DATE OF CONSULTATION: 05/11/2018 CARDIOLOGY CONSULTATION CONSULTING PHYSICIAN: Carlo Ferrari M.D. REFERRING PHYSICIAN: Maico Jama M.D. REASON FOR CONSULTATION: Management of shortness of breath. HISTORY OF PRESENT ILLNESS: The patient is a very unfortunate 68-year-old female with history of hypertension and diabetes mellitus, who presents to the hospital with complaints of fever, chills, nonproductive cough, nausea, and vomiting that have been going on for about a day. On arrival to the hospital, initial blood pressure was 174/57 mmHg and pulse rate of 88. Chest x-ray in the hospital was significant for cardiomegaly and bilateral pulmonary edema consistent with congestive heart failure. Laboratory finding was significant for leukocytosis with left shift. The patient was found to have elevated BUN and creatinine of 37 and 2.9 with potassium of 7.6. A 12-lead electrocardiogram was significant for sinus bradycardia at the rate of 50 with no acute ischemic changes. The patient was admitted to the telemetry for further evaluation and management. Cardiology consultation was made at the request of Dr. Jama for evaluation and management of acute congestive heart failure. PAST MEDICAL HISTORY: 1. Hypertension. 2. Diabetes mellitus. PAST SURGICAL HISTORY: None. MEDICATIONS: List of medication including clonidine 0.1 mg q.6 hours p.o., diltiazem 240 mg p.o. daily, ferrous sulfate 325 mg p.o. daily, Lasix 40 mg p.o. daily, Glucotrol 10 mg p.o. daily, and omeprazole 20 mg p.o. daily. ALLERGIES: No known drug allergies. SOCIAL HISTORY: Denies any tobacco, alcohol, or illicit drug use. REVIEW OF SYSTEMS: HEENT: Denies any diplopia or blurred vision or dizziness. CONSTITUTIONAL: Had fever and chills and generalized weakness. RESPIRATORY: Denied any chest pain, but had shortness of breath. Denies any PND, orthopnea, leg swelling, or syncope. Had nonproductive cough, but no hemoptysis or wheezing. GASTROINTESTINAL: Had nausea and vomiting. Few episodes of nonbloody nonbilious emesis reported. GENITOURINARY: Denies any hematuria, dysuria, or incontinence. NEUROLOGY: Denies any motor dysfunction, sensory deficit, or altered speech. FAMILY HISTORY: No premature coronary artery disease or arrhythmogenic in the first-degree relatives. PHYSICAL EXAMINATION: VITAL SIGNS: Blood pressure was 174/56, pulse of 88, respirations 24, O2 saturation 98% on room air, and temperature 97.5 degrees Fahrenheit. GENERAL: The patient is a very unfortunate 68-year-old female, in no apparent respiratory distress. HEENT: Atraumatic and normocephalic. Anicteric. Pupils are equal, round, and reactive to light and accommodation. Extraocular muscles are intact. NECK: JVP about 10 cm. No carotid bruit. Carotid upstroke is 2+ bilaterally. CVS: Normal S1, S2. Regular rate and rhythm. No murmurs, gallops, or rubs. LUNGS: Bibasilar crackles. ABDOMEN: Soft, nontender, and nondistended. No hepatosplenomegaly. Positive bowel sounds. EXTREMITIES: No evidence of edema, clubbing, or cyanosis. LABORATORY FINDINGS: Sodium was 133, potassium is 7.6, down to 5.3, chloride 106, bicarbonate 18, BUN of 37, creatinine 2.9, and glucose is 253. Calcium is 8.7. ProBNP was 820. Troponin I was 0.034 and 0.017. ABG, pH of 7.35, pCO2 of 28.5, pO2 of 66.8, bicarbonate of 15.6, and O2 saturation of 91.5. Chest x-ray showed cardiomegaly with pulmonary edema. ASSESSMENT AND PLAN: The patient is a very unfortunate 68-year-old lady, who is seen in Cardiology consultation. 1. Acute heart failure with preserved ejection fraction. According to 2D echocardiography, a left ventricular ejection fraction is 65%. There is dilated inferior vena cava with no physiologic collapse translating into high right atrial pressure approximately 15 mmHg. The diastolic data also reveals a LV pseudo normal pattern consistent with moderately elevated left atrial pressure. All in all, given acute kidney injury pattern, this is combination of left atrial pressure. The treatment is decreasing preload with either diuretics or if the patient is a candidate for dialysis given metabolic acidosis and also afterload reduction with most likely hydralazine as HARMEET inhibitors and ARBs are contraindicated. 2. Accelerated hypertension. The patient would be considered to be a good candidate for hydralazine, which will be started at 50 mg 3 times a day. We will also consider calcium channel gustavo. I would discontinue lisinopril at this time. 3. History of diabetes mellitus. 4. Acute kidney injury. Nephrology consultation. I would like to thank, Dr. Jama, for the courtesy of this consultation. Carlo Ferrari M.D. DR: CHINO JOB#: [id number] CC:
[2018-05-12] VITALS: BP 125/68
[2018-05-12] MEDS: Promethazine/Codeine 5ml UD ORAL PRN (05:13)
[2018-05-12] MEDS: HydrALAZINE 50mg tab ORAL SCH ×3 (05:14→21:44)
[2018-05-12] MEDS: NovoLOG Insulin Flexpen SUBQ SCH ×4 (05:23→20:44)
--- NOTE | 2018-05-12 07:15 | NUR ---
NURSE NOTES: Report received from Keena RIVAS.Pt awake,alert ,eating breakfast,noted no resp distress,on RA refuses to wear ventimask,denies any c/o discomfort or pain,SR on the monitor,Laguerre cath draining yellow urine ,IV sites x2 patent,skin warm and dry ,SR up x2,HOB elevated,bed lock in lowest,.call krishnan within reach daughter at bedside.will continue with plans of care.
[2018-05-12 07:46] LABS: BASOPHILS % (AUTO) 0.6 % (0.0-2.0); EOSINOPHILS % (AUTO) 0.9 % (0.0-3.0); HEMATOCRIT 30.8 % (37.0-47.0); HEMOGLOBIN 9.7 G/DL (12.0-16.0); LYMPHOCYTES % (AUTO) 15.1 % (20.0-45.0); MEAN CORPUSCULAR VOLUME 76 FL (80-99); MONOCYTES % (AUTO) 5.8 % (1.0-10.0); NEUTROPHILS % (AUTO) 77.6 % (45.0-75.0); PLATELET COUNT 225 K/UL (150-450); RED BLOOD COUNT 4.05 M/UL (4.20-5.40); RED CELL DISTRIBUTION WIDTH 14.2 % (11.6-14.8)
[2018-05-12 08:00] VITALS: BP 160/64
[2018-05-12 08:47] LABS: ALANINE AMINOTRANSFERASE 34 U/L (12-78); ALBUMIN 2.7 G/DL (3.4-5.0); ALBUMIN/GLOBULIN RATIO 0.5 (1.0-2.7); ALKALINE PHOSPHATASE 173 U/L (46-116); ANION GAP 13 mmol/L (5-15); ASPARTATE AMINO TRANSFERASE 19 U/L (15-37); BILIRUBIN,TOTAL 0.2 MG/DL (0.2-1.0); BLOOD UREA NITROGEN 32 mg/dL (7-18); CARBON DIOXIDE 25 MMOL/L (21-32); CHLORIDE 106 MMOL/L (98-107); CREATININE 2.8 MG/DL (0.55-1.30); POTASSIUM 3.3 MMOL/L (3.5-5.1); SODIUM 144 MMOL/L (136-145)
[2018-05-12] MEDS ORDERED: dilTIAZem HCl CD 240mg cap ORAL SCH (09:00)
[2018-05-12] MEDS ORDERED: cefTRIAXone 1 GM in D5W 55 ML IVPB SCH (09:00)
[2018-05-12] MEDS ORDERED: Azithromycin 250mg tab ORAL SCH (09:00)
[2018-05-12] MEDS ORDERED: Lisinopril 20mg tab ORAL SCH ×2 (09:00)
--- NOTE | 2018-05-12 09:30 | NUR ---
NURSE NOTES: Called Dr Jama re clarifcation of Lasix 80 mg IV,Pt's K level 3.3,call returned and order to DC IV Lasix and give PO 40 mg Q 12;order done and carried out.
--- NOTE | 2018-05-12 09:40 | Diagnostic Imaging Report ---
EXAM: XR Chest, 1 View CLINICAL HISTORY: DYSPNEA TECHNIQUE: Frontal view of the chest. COMPARISON: Chest x-ray 05/11/18 803 FINDINGS: Lungs: Mild bilateral interstitial and airspace prominence is improved from the prior study. Pleural space: Unremarkable. No pneumothorax. Heart: Cardiomegaly. Mediastinum: Unremarkable. Bones/joints: Unremarkable. IMPRESSION: Mild bilateral interstitial and airspace prominence is improved from the prior study.
[2018-05-12] MEDS ORDERED: Furosemide 40mg tab ORAL SCH (10:15)
--- NOTE | 2018-05-12 10:39 | Cardiology Progress Note ---
Assessment/Plan Assessment/Plan 1. Shortness of breath. 2. Cough, questionable pneumonia or bronchitis. 3. Diabetes mellitus, long-term poor control. 4. History of hypertension. 5. Renal insufficiency. 6. Obesity. 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 Subjective Cardiovascular: Denies: chest pain, lightheadedness Respiratory: Reports: cough, sputum Gastrointestinal/Abdominal: Denies: abdominal pain Genitourinary: Denies: burning Objective Last 24 Hour Vital Signs Date Time Temp Pulse Resp B/P (MAP) Pulse Ox O2 Delivery O2 Flow Rate FiO2 05/12/18 09:39 96 160/64 05/12/18 08:00 97.9 96 19 160/64 (96) 96 05/12/18 05:14 164/86 05/12/18 04:00 98.0 98 19 92 05/12/18 04:00 Bi-pap 05/12/18 04:00 82 05/12/18 00:00 Bi-pap 05/12/18 00:00 98.5 99 19 125/68 (87) 95 05/12/18 00:00 73 05/11/18 21:38 168/72 05/11/18 20:00 96 05/11/18 20:00 Bi-pap 05/11/18 20:00 98.5 99 17 169/72 (104) 93 05/11/18 18:35 100 167/67 05/11/18 18:33 167/67 05/11/18 16:00 Bi-pap 05/11/18 16:00 81 05/11/18 16:00 97.5 92 20 160/65 (96) 100 05/11/18 14:14 170/80 05/11/18 12:00 96 05/11/18 12:00 99.2 96 20 170/80 (110) 98 05/11/18 12:00 Bi-pap General Appearance: alert, obese Cardiovascular: normal rate Respiratory/Chest: lungs clear Abdomen: non tender, soft Extremities: no swelling Intake and Output 05/11/18 05/12/18 19:00 07:00 Intake Total 660 ml Output Total 1701 ml Balance -1041 ml Intake Oral 360 ml IV Total 300 ml Output Urine Total 1700 ml Stool Total 1 ml Laboratory Tests Test 05/11/18 15:45 05/12/18 06:55 Troponin I 0.017 ng/mL (0.000-0.056) 0.023 ng/mL (0.000-0.056) White Blood Count 12.0 K/UL (4.8-10.8) H Red Blood Count 4.05 M/UL (4.20-5.40) L Hemoglobin 9.7 G/DL (12.0-16.0) L Hematocrit 30.8 % (37.0-47.0) L Mean Corpuscular Volume 76 FL (80-99) L Mean Corpuscular Hemoglobin 24.0 PG (27.0-31.0) L Mean Corpuscular Hemoglobin Concent 31.5 G/DL (32.0-36.0) L Red Cell Distribution Width 14.2 % (11.6-14.8) Platelet Count 225 K/UL (150-450) Mean Platelet Volume 6.0 FL (6.5-10.1) L Neutrophils (%) (Auto) 77.6 % (45.0-75.0) H Lymphocytes (%) (Auto) 15.1 % (20.0-45.0) L Monocytes (%) (Auto) 5.8 % (1.0-10.0) Eosinophils (%) (Auto) 0.9 % (0.0-3.0) Basophils (%) (Auto) 0.6 % (0.0-2.0) Sodium Level 144 MMOL/L (136-145) Potassium Level 3.3 MMOL/L (3.5-5.1) L Chloride Level 106 MMOL/L (98-107) Carbon Dioxide Level 25 MMOL/L (21-32) Anion Gap 13 mmol/L (5-15) Blood Urea Nitrogen 32 mg/dL (7-18) H Creatinine 2.8 MG/DL (0.55-1.30) H Estimat Glomerular Filtration Rate 16.8 mL/min (>60) Glucose Level 136 MG/DL (74-106) H Calcium Level 9.0 MG/DL (8.5-10.1) Total Bilirubin 0.2 MG/DL (0.2-1.0) Aspartate Amino Transf (AST/SGOT) 19 U/L (15-37) Alanine Aminotransferase (ALT/SGPT) 34 U/L (12-78) Alkaline Phosphatase 173 U/L (46-116) H Pro-B-Type Natriuretic Peptide 3370 pg/mL (0-125) H Total Protein 7.7 G/DL (6.4-8.2) Albumin 2.7 G/DL (3.4-5.0) L Globulin 5.0 g/dL Albumin/Globulin Ratio 0.5 (1.0-2.7) L Microbiology Date/Time Source Procedure Growth Status 05/09/18 23:14 Blood Peripheral Blood Culture - Preliminary NO GROWTH AFTER 24 HOURS Resulted 05/09/18 23:14 Blood Peripheral Blood Culture - Preliminary NO GROWTH AFTER 24 HOURS Resulted 05/10/18 12:30 Nasopharynx Influenza Types A,B Antigen (KRISSY) - Final Complete Theodore Ashraf MD May 12, 2018 10:39
[2018-05-12 12:00] VITALS: BP 139/71
--- NOTE | 2018-05-12 13:23 | Pulmonology Progress Note ---
Assessment/Plan Problems: (1) Acute respiratory failure with hypoxia (2) Acute exacerbation of CHF (congestive heart failure) (3) Acute hyperkalemia (4) Diabetes mellitus (5) History of hypertension (6) Diabetic nephropathy Assessment/Plan so far - 3 liters fluid balance CXR shows pulmonary edema, improved change lasix to po K is better add Lisinopril for BP sliding scale diabetic diet check cultures abx as per ID serology pending dc heparin S@ Med/surg Subjective ROS Limited/Unobtainable: No Constitutional: Reports: no symptoms HEENT: Repors: no symptoms Allergies: Coded Allergies: No Known Allergies (Unverified , 05/09/18) Objective Last 24 Hour Vital Signs Date Time Temp Pulse Resp B/P (MAP) Pulse Ox O2 Delivery O2 Flow Rate FiO2 05/12/18 12:00 98.4 64 19 139/71 (93) 98 05/12/18 12:00 68 05/12/18 12:00 Bi-pap 05/12/18 09:39 96 160/64 05/12/18 08:00 97.9 96 19 160/64 (96) 96 05/12/18 08:00 80 05/12/18 08:00 Bi-pap 05/12/18 05:14 164/86 05/12/18 04:00 98.0 98 19 92 05/12/18 04:00 Bi-pap 05/12/18 04:00 82 05/12/18 00:00 Bi-pap 05/12/18 00:00 98.5 99 19 125/68 (87) 95 05/12/18 00:00 73 05/11/18 21:38 168/72 05/11/18 20:00 96 05/11/18 20:00 Bi-pap 05/11/18 20:00 98.5 99 17 169/72 (104) 93 05/11/18 18:35 100 167/67 05/11/18 18:33 167/67 05/11/18 16:00 Bi-pap 05/11/18 16:00 81 05/11/18 16:00 97.5 92 20 160/65 (96) 100 05/11/18 14:14 170/80 Intake and Output 05/11/18 05/12/18 19:00 07:00 Intake Total 660 ml Output Total 1701 ml Balance -1041 ml Intake Oral 360 ml IV Total 300 ml Output Urine Total 1700 ml Stool Total 1 ml General Appearance: WD/WN HEENT: normocephalic, atraumatic Respiratory/Chest: chest wall non-tender, lungs clear Breasts: no masses Cardiovascular: normal peripheral pulses Abdomen: normal bowel sounds, soft, non tender Genitourinary: normal external genitalia 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 Microbiology Date/Time Source Procedure Growth Status 05/09/18 23:14 Blood Peripheral Blood Culture - Preliminary NO GROWTH AFTER 24 HOURS Resulted 05/09/18 23:14 Blood Peripheral Blood Culture - Preliminary NO GROWTH AFTER 24 HOURS Resulted 05/10/18 12:30 Nasopharynx Influenza Types A,B Antigen (KRISSY) - Final Complete Laboratory Tests 05/11/18 15:45: Troponin I 0.017 05/12/18 06:55: Troponin I 0.023, White Blood Count 12.0H, Red Blood Count 4.05L, Hemoglobin 9.7L, Hematocrit 30.8L, Mean Corpuscular Volume 76L, Mean Corpuscular Hemoglobin 24.0L, Mean Corpuscular Hemoglobin Concent 31.5L, Red Cell Distribution Width 14.2, Platelet Count 225, Mean Platelet Volume 6.0L, Neutrophils (%) (Auto) 77.6H, Lymphocytes (%) (Auto) 15.1L, Monocytes (%) (Auto ) 5.8, Eosinophils (%) (Auto) 0.9, Basophils (%) (Auto) 0.6, Sodium Level 144, Potassium Level 3.3L, Chloride Level 106, Carbon Dioxide Level 25, Anion Gap 13 , Blood Urea Nitrogen 32H, Creatinine 2.8H, Estimat Glomerular Filtration Rate 16.8, Glucose Level 136H, Calcium Level 9.0, Total Bilirubin 0.2, Aspartate Amino Transf (AST/SGOT) 19, Alanine Aminotransferase (ALT/SGPT) 34, Alkaline Phosphatase 173H, Pro-B-Type Natriuretic Peptide 3370H, Total Protein 7.7, Albumin 2.7L, Globulin 5.0, Albumin/Globulin Ratio 0.5L Current Medications Medications (Trade) Dose Ordered Sig/Marshall Route PRN Reason Start Time Stop Time Status Last Admin Dose Admin Azithromycin (Zithromax) 500 mg DAILY ORAL 05/12/18 09:00 05/18/18 08:59 05/12/18 09:38 Ceftriaxone Sodium 1 gm/ Dextrose 55 ml @ 110 mls/hr DAILY IVPB 05/12/18 09:00 05/17/18 12:59 05/12/18 09:51 Dextrose (Dextrose 50%) 25 ml Q30M PRN IV Hypoglycemia 05/11/18 11:15 06/09/18 05:44 Dextrose (Dextrose 50%) 50 ml Q30M PRN IV Hypoglycemia 05/11/18 11:15 06/09/18 05:44 Diltiazem HCl (Cardizem CD) 240 mg DAILY ORAL 05/12/18 09:00 06/11/18 08:59 05/12/18 09:39 Furosemide (Lasix) 40 mg EVERY 12 HOURS ORAL 05/12/18 10:15 06/11/18 10:14 05/12/18 10:27 Furosemide (Lasix) 80 mg EVERY 12 HOURS IV 05/11/18 21:00 06/09/18 10:59 05/11/18 21:39 Hydralazine HCl (Apresoline) 10 mg Q4H PRN IV sbp> 160 05/11/18 11:00 06/09/18 10:59 05/11/18 14:14 Hydralazine HCl (Apresoline) 50 mg Q8HR ORAL 05/11/18 22:00 06/10/18 21:59 05/12/18 05:14 Insulin Aspart (NovoLOG) BEFORE MEALS AND HS SUBQ 05/11/18 11:30 06/09/18 06:29 05/12/18 11:56 Ondansetron HCl (Zofran) 4 mg Q4H PRN IVP Nausea & Vomiting 05/11/18 11:00 06/09/18 10:59 Promethazine HCl/ Codeine (Phenergan with Codeine) 5 ml Q6H PRN ORAL For Cough 05/11/18 19:00 06/10/18 18:59 05/12/18 05:13 Jossue Hills MD May 12, 2018 13:23
--- NOTE | 2018-05-12 13:30 | NUR ---
NURSE NOTES: Dr Hills at bedside,seen pt,transfer orders given to Med Surg.
--- NOTE | 2018-05-12 13:33 | NUR ---
NURSE NOTES: Dr Del Rosario here and ordered Kdur 40 meq po x1 for K3.3,will continue to monitor pt.
--- NOTE | 2018-05-12 13:36 | NUR ---
CASE MANAGEMENT: REVIEW 05/11/2018 SI:HYPERKALEMIA. RENAL FAILURE. T 97.5 HR 81 RR 20 B/P 160/65 SATS 100% ON BIPAP FiO2 50 WBC 13.6 CL 108 BUN 28 CR 2.6 GLU 129 ALP 191 BNP 2593 IS:LASIX IV Q12H LASIX PO Q12H CEFTRIAXONE IV QD AZITHROMAX PO QD CARDIZEM PO QD INSULIN ASPART SUBQ AC/HS HYDRALAZINE PO Q8H TELE PLAN OF CARE: GLYCEMIC CONTROL AND MONITORING 05/12/2018 SI:HYPERKALEMIA. RENAL FAILURE. T 98.4 HR 64 RR 19 B/P 139/71 SATS 98% ON BIPAP FiO2 50 WBC 12 K 3.3 BUN 32 CR 2.8 GLU 136 ALP 173 BNP 3370 IS:LASIX IV Q12H LASIX PO Q12H CEFTRIAXONE IV QD AZITHROMAX POQD CARDIZEM PO QD INSULIN ASPART SUBQ AC/HS HYDRALAZINE PO Q8H TELE PLAN OF CARE: GLYCEMIC CONTROL AND MONITORING CXR TRANSFER TO MED/SURG
--- NOTE | 2018-05-12 13:38 | Nephrology Progress Note ---
Assessment/Plan Assessment/Plan A/P 1) BELEN on CKD 4- BL Cr unclear - Cr at 2.8 - hold off -I due to severe initial hyperk+ 2) Hypokalemia- po K+ x 1 3) CHF- on po diuretics per cardiology Subjective Date patient seen: May 12, 2018 Time patient seen: 13:33 ROS Limited/Unobtainable: No Genitourinary: Reports: frequency Allergies: Coded Allergies: No Known Allergies (Unverified , 05/09/18) Subjective Patient breathing improved. No CP or acute SOB Objective Last 24 Hour Vital Signs Date Time Temp Pulse Resp B/P (MAP) Pulse Ox O2 Delivery O2 Flow Rate FiO2 05/12/18 12:00 98.4 64 19 139/71 (93) 98 05/12/18 12:00 68 05/12/18 12:00 Bi-pap 05/12/18 09:39 96 160/64 05/12/18 08:00 97.9 96 19 160/64 (96) 96 05/12/18 08:00 80 05/12/18 08:00 Bi-pap 05/12/18 05:14 164/86 05/12/18 04:00 98.0 98 19 92 05/12/18 04:00 Bi-pap 05/12/18 04:00 82 05/12/18 00:00 Bi-pap 05/12/18 00:00 98.5 99 19 125/68 (87) 95 05/12/18 00:00 73 05/11/18 21:38 168/72 05/11/18 20:00 96 05/11/18 20:00 Bi-pap 05/11/18 20:00 98.5 99 17 169/72 (104) 93 05/11/18 18:35 100 167/67 05/11/18 18:33 167/67 05/11/18 16:00 Bi-pap 05/11/18 16:00 81 05/11/18 16:00 97.5 92 20 160/65 (96) 100 05/11/18 14:14 170/80 Intake and Output 05/11/18 05/12/18 19:00 07:00 Intake Total 660 ml Output Total 1701 ml Balance -1041 ml Intake Oral 360 ml IV Total 300 ml Output Urine Total 1700 ml Stool Total 1 ml Laboratory Tests 05/11/18 15:45: Troponin I 0.017 05/12/18 06:55: Troponin I 0.023, White Blood Count 12.0H, Red Blood Count 4.05L, Hemoglobin 9.7L, Hematocrit 30.8L, Mean Corpuscular Volume 76L, Mean Corpuscular Hemoglobin 24.0L, Mean Corpuscular Hemoglobin Concent 31.5L, Red Cell Distribution Width 14.2, Platelet Count 225, Mean Platelet Volume 6.0L, Neutrophils (%) (Auto) 77.6H, Lymphocytes (%) (Auto) 15.1L, Monocytes (%) (Auto ) 5.8, Eosinophils (%) (Auto) 0.9, Basophils (%) (Auto) 0.6, Sodium Level 144, Potassium Level 3.3L, Chloride Level 106, Carbon Dioxide Level 25, Anion Gap 13 , Blood Urea Nitrogen 32H, Creatinine 2.8H, Estimat Glomerular Filtration Rate 16.8, Glucose Level 136H, Calcium Level 9.0, Total Bilirubin 0.2, Aspartate Amino Transf (AST/SGOT) 19, Alanine Aminotransferase (ALT/SGPT) 34, Alkaline Phosphatase 173H, Pro-B-Type Natriuretic Peptide 3370H, Total Protein 7.7, Albumin 2.7L, Globulin 5.0, Albumin/Globulin Ratio 0.5L Height (Feet): 5 Height (Inches): 2.00 Weight (Pounds): 138 General Appearance: no apparent distress, alert EENT: normal ENT inspection Neck: normal alignment, supple Cardiovascular: normal rate, regular rhythm Respiratory/Chest: rhonchi - bilaterally Abdomen: non tender, soft Edema: no edema noted Arm (L), no edema noted Arm (R), no edema noted Leg (L), no edema noted Leg (R), no edema noted Pedal (L), no edema noted Pedal (R), no edema noted Generalized Ricardo Molina MD May 12, 2018 13:38
--- NOTE | 2018-05-12 14:45 | NUR ---
NURSE NOTES: Received report from Dawna RIVAS. Patient is alert and oriented x4, Kazakh speaking. No acute distress noted. Belongings received from transferring nurse, checked and bedside. 2 IV's in left arm intact and asymptomatic. Laguerre catheter to gravity drainage, draining clear, yellow urine. Patient has order for venturi mask, but refuses. Oxygen saturation is stable on room air. Side rails upx3, bed low and locked, call light in reach. Will continue to monitor.
--- NOTE | 2018-05-12 15:22 | NUR ---
TRANSFER TO FLOOR: Patient transferred to 3E room 308-1, per bed awake,alert in no resp distress. Report given to Andreia RIVAS. medications given to leeanna RN. . Family and or S/O informed of transfer,called MD Vasquez ,left message on answering machine.
--- NOTE | 2018-05-12 15:24 | Internal Med Progress Note ---
Subjective Date of Service: May 12, 2018 Physician Name Mu Brooks Attending Physician Maico Jama MD Current Medications Medications (Trade) Dose Ordered Sig/Marshall Route PRN Reason Start Time Stop Time Status Last Admin Dose Admin Azithromycin (Zithromax) 500 mg DAILY ORAL 05/13/18 09:00 05/18/18 08:59 Ceftriaxone Sodium 1 gm/ Dextrose 55 ml @ 110 mls/hr DAILY IVPB 05/13/18 09:00 05/17/18 12:59 Dextrose (Dextrose 50%) 25 ml Q30M PRN IV Hypoglycemia 05/12/18 14:45 06/09/18 05:44 Dextrose (Dextrose 50%) 50 ml Q30M PRN IV Hypoglycemia 05/12/18 14:45 06/09/18 05:44 Diltiazem HCl (Cardizem CD) 240 mg DAILY ORAL 05/13/18 09:00 06/11/18 08:59 Furosemide (Lasix) 40 mg EVERY 12 HOURS ORAL 05/12/18 21:00 06/11/18 10:14 Hydralazine HCl (Apresoline) 10 mg Q4H PRN IV sbp> 160 05/12/18 15:00 06/09/18 10:59 Hydralazine HCl (Apresoline) 50 mg Q8HR ORAL 05/12/18 22:00 06/10/18 21:59 Insulin Aspart (NovoLOG) BEFORE MEALS AND HS SUBQ 05/12/18 16:30 06/09/18 06:29 Ondansetron HCl (Zofran) 4 mg Q4H PRN IVP Nausea & Vomiting 05/12/18 15:00 06/09/18 10:59 Promethazine HCl/ Codeine (Phenergan with Codeine) 5 ml Q6H PRN ORAL For Cough 05/12/18 19:00 06/10/18 18:59 Allergies: Coded Allergies: No Known Allergies (Unverified , 05/09/18) ROS Limited/Unobtainable: No Constitutional: Reports: no symptoms HEENT: Reports: no symptoms Cardiovascular: Reports: no symptoms Respiratory: Reports: shortness of breath Gastrointestinal/Abdominal: Reports: no symptoms Genitourinary: Reports: no symptoms Neurologic/Psychiatric: Reports: no symptoms Subjective 68 YO F admitted with shortness of breath. Now pneumonia and respiratory failure. Cover for Int Med-Dr Jama Objective Last Vital Signs Date Time Temp Pulse Resp B/P (MAP) Pulse Ox O2 Delivery O2 Flow Rate FiO2 05/12/18 14:00 Venturi Mask 12.0 50 05/12/18 14:00 97 05/12/18 13:49 139/71 05/12/18 12:00 98.4 64 19 Laboratory Tests Test 05/11/18 15:45 05/12/18 06:55 Troponin I 0.017 ng/mL (0.000-0.056) 0.023 ng/mL (0.000-0.056) White Blood Count 12.0 K/UL (4.8-10.8) H Red Blood Count 4.05 M/UL (4.20-5.40) L Hemoglobin 9.7 G/DL (12.0-16.0) L Hematocrit 30.8 % (37.0-47.0) L Mean Corpuscular Volume 76 FL (80-99) L Mean Corpuscular Hemoglobin 24.0 PG (27.0-31.0) L Mean Corpuscular Hemoglobin Concent 31.5 G/DL (32.0-36.0) L Red Cell Distribution Width 14.2 % (11.6-14.8) Platelet Count 225 K/UL (150-450) Mean Platelet Volume 6.0 FL (6.5-10.1) L Neutrophils (%) (Auto) 77.6 % (45.0-75.0) H Lymphocytes (%) (Auto) 15.1 % (20.0-45.0) L Monocytes (%) (Auto) 5.8 % (1.0-10.0) Eosinophils (%) (Auto) 0.9 % (0.0-3.0) Basophils (%) (Auto) 0.6 % (0.0-2.0) Sodium Level 144 MMOL/L (136-145) Potassium Level 3.3 MMOL/L (3.5-5.1) L Chloride Level 106 MMOL/L (98-107) Carbon Dioxide Level 25 MMOL/L (21-32) Anion Gap 13 mmol/L (5-15) Blood Urea Nitrogen 32 mg/dL (7-18) H Creatinine 2.8 MG/DL (0.55-1.30) H Estimat Glomerular Filtration Rate 16.8 mL/min (>60) Glucose Level 136 MG/DL (74-106) H Calcium Level 9.0 MG/DL (8.5-10.1) Total Bilirubin 0.2 MG/DL (0.2-1.0) Aspartate Amino Transf (AST/SGOT) 19 U/L (15-37) Alanine Aminotransferase (ALT/SGPT) 34 U/L (12-78) Alkaline Phosphatase 173 U/L (46-116) H Pro-B-Type Natriuretic Peptide 3370 pg/mL (0-125) H Total Protein 7.7 G/DL (6.4-8.2) Albumin 2.7 G/DL (3.4-5.0) L Globulin 5.0 g/dL Albumin/Globulin Ratio 0.5 (1.0-2.7) L Microbiology Date/Time Source Procedure Growth Status 05/09/18 23:14 Blood Peripheral Blood Culture - Preliminary NO GROWTH AFTER 24 HOURS Resulted 05/09/18 23:14 Blood Peripheral Blood Culture - Preliminary NO GROWTH AFTER 24 HOURS Resulted 05/10/18 12:30 Nasopharynx Influenza Types A,B Antigen (KRISSY) - Final Complete Intake and Output 05/11/18 05/12/18 19:00 07:00 Intake Total 660 ml Output Total 1701 ml Balance -1041 ml Intake Oral 360 ml IV Total 300 ml Output Urine Total 1700 ml Stool Total 1 ml Objective PHYSICAL EXAMINATION: VITAL SIGNS: On admission, temperature 97.5, pulse of 88, respirations 24, blood pressure 174/56. GENERAL: The patient is awake, responsive, not in no acute distress. HEAD AND NECK: Pupils equal and reactive to light. Extraocular movements are intact. Neck was supple. No JVD. LUNGS: Good air entry. No wheezes or rhonchi. Decreased in bases. Occasional crackles in the bases. HEART: S1 and S2. Regular rhythm. ABDOMEN: Soft, nondistended, nontender. Positive bowel sounds. The patient has epigastric tenderness. EXTREMITIES: No cyanosis, clubbing, edema. NEUROLOGIC: Cranial nerves II through XII grossly intact. Motor is 5/5 in all extremities. Assessment/Plan Assessment/Plan ASSESSMENT: 1. Pneumonia/Sepsis. 2. Acute hypoxemic respiratory failure. 3. Acute CHF exacerbation. 4. Hyperkalemia. 5. Hyponatremia. 6. Diabetes type 2. 7. Hypertension. 8. Diabetic nephropathy. PLAN: 1.Med/Surg 2. We will follow up laboratory, cultures. 3. We will monitor potassium level closely. 4. Kayexalate, D50, insulin. 5. Discussed with Dr. Hills, Pulmonary Critical Care and Dr. Carlos Alberto Jasmine from Nephrology and Dr. Carlo Ferrari from Cardiology. 6. Follow up with 2D echo. 7. Code status is Full Code. 8. DVT prophylaxis. Heparin subcutaneous. 9. Continue ceftriaxone and azithromycin Mu Brooks MD May 12, 2018 15:24
[2018-05-12 16:00] VITALS: BP 153/64
[2018-05-12] MEDS ORDERED: Promethazine/Codeine 5ml UD ORAL PRN (19:00)
--- NOTE | 2018-05-12 19:41 | NUR ---
HAND-OFF: Report given to Darci RIVAS. Patient is in stable condition.
--- NOTE | 2018-05-12 19:42 | NUR ---
NURSE NOTES: Received patient asleep in bed, able to verbalize needs, 2/10 pain at this time, no s/s of acute distress. Bed on lowest position, 2 siderails up, call light and belongings within reach.
[2018-05-12 20:00] VITALS: BP 147/63
[2018-05-12] MEDS: Furosemide 40mg tab ORAL SCH (20:46)
--- NOTE | 2018-05-12 23:00 | NUR ---
NURSE NOTES: Daughter at the bedside, will stay overnight.
--- NOTE | 2018-05-12 23:51 | Cardiology Progress Note ---
Assessment/Plan Assessment/Plan 1. Acute heart failure with preserved ejection fraction, LVEF ~ 65%. Continue hydralazine, furosemide and diltiazem, off ACEI/ARBSs. CXR has improved. 2. Accelerated hypertension. 3. History of diabetes mellitus. 4. Most likely CKD, per patient renal failure known for the past three months, non-oliguric. Objective Last 24 Hour Vital Signs Date Time Temp Pulse Resp B/P (MAP) Pulse Ox O2 Delivery O2 Flow Rate FiO2 05/12/18 22:02 Bi-pap 05/12/18 21:44 153/64 05/12/18 20:00 98.7 85 18 147/63 (91) 98 05/12/18 16:00 99.1 81 20 153/64 (93) 98 05/12/18 14:00 Venturi Mask 12.0 50 05/12/18 14:00 97 Venturi Mask 12.0 50 05/12/18 13:49 139/71 05/12/18 12:00 98.4 64 19 139/71 (93) 98 05/12/18 12:00 68 05/12/18 12:00 Bi-pap 05/12/18 09:39 96 160/64 05/12/18 08:00 97.9 96 19 160/64 (96) 96 05/12/18 08:00 80 05/12/18 08:00 Bi-pap 05/12/18 05:14 164/86 05/12/18 04:00 98.0 98 19 92 05/12/18 04:00 Bi-pap 05/12/18 04:00 82 05/12/18 00:00 Bi-pap 05/12/18 00:00 98.5 99 19 125/68 (87) 95 05/12/18 00:00 73 Intake and Output 05/11/18 05/12/18 18:59 06:59 Intake Total 735 ml Output Total 1701 ml Balance -966 ml Intake Oral 360 ml IV Total 375 ml Output Urine Total 1700 ml Stool Total 1 ml 2D Echo: LVEF 60%, Mild LVH, Grade II LVDD, RVSP 25 mmHg Laboratory Tests Test 05/12/18 06:55 White Blood Count 12.0 K/UL (4.8-10.8) H Red Blood Count 4.05 M/UL (4.20-5.40) L Hemoglobin 9.7 G/DL (12.0-16.0) L Hematocrit 30.8 % (37.0-47.0) L Mean Corpuscular Volume 76 FL (80-99) L Mean Corpuscular Hemoglobin 24.0 PG (27.0-31.0) L Mean Corpuscular Hemoglobin Concent 31.5 G/DL (32.0-36.0) L Red Cell Distribution Width 14.2 % (11.6-14.8) Platelet Count 225 K/UL (150-450) Mean Platelet Volume 6.0 FL (6.5-10.1) L Neutrophils (%) (Auto) 77.6 % (45.0-75.0) H Lymphocytes (%) (Auto) 15.1 % (20.0-45.0) L Monocytes (%) (Auto) 5.8 % (1.0-10.0) Eosinophils (%) (Auto) 0.9 % (0.0-3.0) Basophils (%) (Auto) 0.6 % (0.0-2.0) Sodium Level 144 MMOL/L (136-145) Potassium Level 3.3 MMOL/L (3.5-5.1) L Chloride Level 106 MMOL/L (98-107) Carbon Dioxide Level 25 MMOL/L (21-32) Anion Gap 13 mmol/L (5-15) Blood Urea Nitrogen 32 mg/dL (7-18) H Creatinine 2.8 MG/DL (0.55-1.30) H Estimat Glomerular Filtration Rate 16.8 mL/min (>60) Glucose Level 136 MG/DL (74-106) H Calcium Level 9.0 MG/DL (8.5-10.1) Total Bilirubin 0.2 MG/DL (0.2-1.0) Aspartate Amino Transf (AST/SGOT) 19 U/L (15-37) Alanine Aminotransferase (ALT/SGPT) 34 U/L (12-78) Alkaline Phosphatase 173 U/L (46-116) H Troponin I 0.023 ng/mL (0.000-0.056) Pro-B-Type Natriuretic Peptide 3370 pg/mL (0-125) H Total Protein 7.7 G/DL (6.4-8.2) Albumin 2.7 G/DL (3.4-5.0) L Globulin 5.0 g/dL Albumin/Globulin Ratio 0.5 (1.0-2.7) L Microbiology Date/Time Source Procedure Growth Status 05/10/18 12:30 Nasopharynx Influenza Types A,B Antigen (KRISSY) - Final Complete Objective HEENT: Atraumatic and normocephalic. Anicteric. Pupils are equal, round, and reactive to light and accommodation. Extraocular muscles are intact. NECK: JVP about 10 cm. No carotid bruit. Carotid upstroke is 2+ bilaterally. CVS: Normal S1, S2. Regular rate and rhythm. No murmurs, gallops, or rubs. LUNGS: Bibasilar crackles. ABDOMEN: Soft, nontender, and nondistended. No hepatosplenomegaly. Positive bowel sounds. EXTREMITIES: No evidence of edema, clubbing, or cyanosis. Carlo Ferrari MD May 12, 2018 23:51
[2018-05-13] VITALS (8 sets, daily range): BP systolic 84–173; BP diastolic 62–89
[2018-05-13] MEDS: HydrALAZINE 50mg tab ORAL SCH ×3 (05:54→21:34)
[2018-05-13] MEDS: NovoLOG Insulin Flexpen SUBQ SCH ×4 (05:55→21:36)
--- NOTE | 2018-05-13 07:15 | NUR ---
HAND-OFF: Report given to
[2018-05-13 08:00] LABS: BASOPHILS % (AUTO) 0.4 % (0.0-2.0); EOSINOPHILS % (AUTO) 1.3 % (0.0-3.0); HEMATOCRIT 31.1 % (37.0-47.0); HEMOGLOBIN 9.7 G/DL (12.0-16.0); LYMPHOCYTES % (AUTO) 19.5 % (20.0-45.0); MEAN CORPUSCULAR VOLUME 77 FL (80-99); MONOCYTES % (AUTO) 6.1 % (1.0-10.0); NEUTROPHILS % (AUTO) 72.6 % (45.0-75.0); PLATELET COUNT 250 K/UL (150-450); RED BLOOD COUNT 4.06 M/UL (4.20-5.40); RED CELL DISTRIBUTION WIDTH 14.4 % (11.6-14.8); WHITE BLOOD COUNT 11.6 K/UL (4.8-10.8)
[2018-05-13] MEDS: Furosemide 40mg tab ORAL SCH ×2 (08:20→21:35)
[2018-05-13] MEDS: dilTIAZem HCl CD 240mg cap ORAL SCH (08:21)
[2018-05-13] MEDS: Azithromycin 250mg tab ORAL SCH (08:21)
[2018-05-13 08:50] LABS: ALANINE AMINOTRANSFERASE 27 U/L (12-78); ALBUMIN 2.8 G/DL (3.4-5.0); ALBUMIN/GLOBULIN RATIO 0.6 (1.0-2.7); ALKALINE PHOSPHATASE 151 U/L (46-116); ANION GAP 14 mmol/L (5-15); ASPARTATE AMINO TRANSFERASE 14 U/L (15-37); BILIRUBIN,TOTAL 0.2 MG/DL (0.2-1.0); BLOOD UREA NITROGEN 37 mg/dL (7-18); CALCIUM 9.2 MG/DL (8.5-10.1); CARBON DIOXIDE 27 MMOL/L (21-32); CHLORIDE 104 MMOL/L (98-107); CREATININE 2.9 MG/DL (0.55-1.30); POTASSIUM 3.5 MMOL/L (3.5-5.1); SODIUM 145 MMOL/L (136-145)
[2018-05-13] MEDS: cefTRIAXone 1 GM in D5W 55 ML IVPB SCH (09:06)
--- NOTE | 2018-05-13 10:01 | NUR ---
RECEIVED IN BED AWAKE.. DAUGHTER AT BEDSIDE TO ASSIST WITH COMMUNICATING WITH NURSING STAFF.. DUE TO PATIENT DOESN'T SPEAK KAZAKH.. TOLERATED ALL P.O. MEDICATION.. DENIES NO PAIN OR DISCOMFORT... WILL CONTINUE TO MONITOR FOR ANY DISTRESS CALL LIGHT INREACH
--- NOTE | 2018-05-13 10:42 | NUR ---
RADIOLOGY DEPT., CHEST X-RAY DONE.-P.DYE
--- NOTE | 2018-05-13 11:18 | NUR ---
*-* INSURANCE *-* UPDATED CLINICALS AND REVIEWS HAVE BEEN FAXED TO: DEANN Bhandari [phone] F [phone]
--- NOTE | 2018-05-13 12:04 | Pulmonology Progress Note ---
Assessment/Plan Problems: (1) Acute respiratory failure with hypoxia (2) Acute exacerbation of CHF (congestive heart failure) (3) Acute hyperkalemia (4) Diabetes mellitus (5) History of hypertension (6) Diabetic nephropathy Assessment/Plan so far - 3 liters fluid balance CXR improved, with hilar fullness, will get CT chest change lasix to po K is better add Lisinopril for BP sliding scale diabetic diet check cultures abx as per ID serology pending dc heparin S@ Med/surg Subjective ROS Limited/Unobtainable: No Constitutional: Reports: no symptoms HEENT: Repors: no symptoms Allergies: Coded Allergies: No Known Allergies (Unverified , 05/09/18) Objective Last 24 Hour Vital Signs Date Time Temp Pulse Resp B/P (MAP) Pulse Ox O2 Delivery O2 Flow Rate FiO2 05/13/18 09:35 96 Venturi Mask 12.0 50 05/13/18 08:54 Venturi Mask 12.0 50 05/13/18 08:21 92 173/68 05/13/18 08:00 Room Air 05/13/18 08:00 98.9 92 18 173/68 (103) 98 05/13/18 05:54 143/67 05/13/18 04:05 98.0 76 17 143/67 (92) 100 05/13/18 00:00 98.3 80 18 137/62 (87) 100 05/12/18 22:02 Bi-pap 05/12/18 21:44 153/64 05/12/18 20:00 98.7 85 18 147/63 (91) 98 05/12/18 19:09 95 Room Air 21 05/12/18 19:09 Room Air 21 05/12/18 16:00 99.1 81 20 153/64 (93) 98 05/12/18 14:00 Venturi Mask 12.0 50 05/12/18 14:00 97 Venturi Mask 12.0 50 05/12/18 13:49 139/71 Intake and Output 05/12/18 05/13/18 19:00 07:00 Intake Total 800 ml 250 ml Output Total 550 ml 650 ml Balance 250 ml -400 ml Intake Oral 250 ml Other 800 ml Output Urine Total 550 ml 650 ml General Appearance: cachetic HEENT: normocephalic, atraumatic Respiratory/Chest: chest wall non-tender, lungs clear Cardiovascular: normal peripheral pulses, normal rate Abdomen: normal bowel sounds, no organomegaly Genitourinary: normal external genitalia Microbiology Date/Time Source Procedure Growth Status 05/10/18 12:30 Nasopharynx Influenza Types A,B Antigen (KRISSY) - Final Complete Laboratory Tests 05/13/18 05:47: White Blood Count 11.6H, Red Blood Count 4.06L, Hemoglobin 9.7L, Hematocrit 31.1L, Mean Corpuscular Volume 77L, Mean Corpuscular Hemoglobin 23.9L, Mean Corpuscular Hemoglobin Concent 31.3L, Red Cell Distribution Width 14.4, Platelet Count 250, Mean Platelet Volume 6.7, Neutrophils (%) (Auto) 72.6, Lymphocytes (%) (Auto) 19.5L, Monocytes (%) (Auto) 6.1, Eosinophils (%) (Auto) 1.3, Basophils (%) (Auto) 0.4, Sodium Level 145, Potassium Level 3.5, Chloride Level 104, Carbon Dioxide Level 27, Anion Gap 14, Blood Urea Nitrogen 37H, Creatinine 2.9H, Estimat Glomerular Filtration Rate 16.2, Glucose Level 104, Calcium Level 9.2, Total Bilirubin 0.2, Aspartate Amino Transf (AST/SGOT) 14L, Alanine Aminotransferase (ALT/SGPT) 27, Alkaline Phosphatase 151H, Pro-B-Type Natriuretic Peptide 2575H, Total Protein 7.7, Albumin 2.8L, Globulin 4.9, Albumin/Globulin Ratio 0.6L Current Medications Medications (Trade) Dose Ordered Sig/Marshall Route PRN Reason Start Time Stop Time Status Last Admin Dose Admin Azithromycin (Zithromax) 500 mg DAILY ORAL 05/13/18 09:00 05/18/18 08:59 05/13/18 08:21 Ceftriaxone Sodium 1 gm/ Dextrose 55 ml @ 110 mls/hr DAILY IVPB 05/13/18 09:00 05/17/18 12:59 05/13/18 09:06 Dextrose (Dextrose 50%) 25 ml Q30M PRN IV Hypoglycemia 05/12/18 14:45 06/09/18 05:44 Dextrose (Dextrose 50%) 50 ml Q30M PRN IV Hypoglycemia 05/12/18 14:45 06/09/18 05:44 Diltiazem HCl (Cardizem CD) 240 mg DAILY ORAL 05/13/18 09:00 06/11/18 08:59 05/13/18 08:21 Furosemide (Lasix) 40 mg EVERY 12 HOURS ORAL 05/12/18 21:00 06/11/18 10:14 05/13/18 08:20 Hydralazine HCl (Apresoline) 10 mg Q4H PRN IV sbp> 160 05/12/18 15:00 06/09/18 10:59 Hydralazine HCl (Apresoline) 50 mg Q8HR ORAL 05/12/18 22:00 06/10/18 21:59 05/13/18 05:54 Insulin Aspart (NovoLOG) BEFORE MEALS AND HS SUBQ 05/12/18 16:30 06/09/18 06:29 05/13/18 11:48 Ondansetron HCl (Zofran) 4 mg Q4H PRN IVP Nausea & Vomiting 05/12/18 15:00 06/09/18 10:59 Promethazine HCl/ Codeine (Phenergan with Codeine) 5 ml Q6H PRN ORAL For Cough 05/12/18 19:00 06/10/18 18:59 Jossue Hills MD May 13, 2018 12:04
--- NOTE | 2018-05-13 13:14 | NUR ---
CASE MANAGEMENT:REVIEW 05/13/18 SI: ACUTE RESP FAILURE. CHF 98.9 92 18 173/68 96% ON VENTURI MASK 12L 50% FIO2 WBC+11.6 BUN+37 CR+2.9 IS: IV ROCEPHIN Q24 HYDRALAZINE PO Q8HR AZITHROMYCIN PO QD CARDIZEM PO QD LASIX PO Q12 : MED/SURG STATUS 3 EAST DCP: FROM HOME
--- NOTE | 2018-05-13 13:59 | Nephrology Progress Note ---
Assessment/Plan Problem List: (1) Acute exacerbation of CHF (congestive heart failure) (2) Diabetes mellitus (3) History of hypertension (4) Diabetic nephropathy Assessment: stable (5) Acute hyperkalemia Assessment: ok now (6) Acute on chronic renal failure Assessment: renal function stable baseline ? Plan check PTH follow BMP Discussed with son Subjective Subjective feels ok Objective Objective Last 24 Hour Vital Signs Date Time Temp Pulse Resp B/P (MAP) Pulse Ox O2 Delivery O2 Flow Rate FiO2 05/13/18 13:13 155/100 05/13/18 09:35 96 Venturi Mask 12.0 50 05/13/18 08:54 Venturi Mask 12.0 50 05/13/18 08:21 92 173/68 05/13/18 08:00 Room Air 05/13/18 08:00 98.9 92 18 173/68 (103) 98 05/13/18 05:54 143/67 05/13/18 04:05 98.0 76 17 143/67 (92) 100 05/13/18 00:00 98.3 80 18 137/62 (87) 100 05/12/18 22:02 Bi-pap 05/12/18 21:44 153/64 05/12/18 20:00 98.7 85 18 147/63 (91) 98 05/12/18 19:09 95 Room Air 21 05/12/18 19:09 Room Air 21 05/12/18 16:00 99.1 81 20 153/64 (93) 98 05/12/18 14:00 Venturi Mask 12.0 50 05/12/18 14:00 97 Venturi Mask 12.0 50 Intake and Output 05/12/18 05/13/18 19:00 07:00 Intake Total 800 ml 250 ml Output Total 550 ml 650 ml Balance 250 ml -400 ml Intake Oral 250 ml Other 800 ml Output Urine Total 550 ml 650 ml Laboratory Tests 05/13/18 05:47: White Blood Count 11.6H, Red Blood Count 4.06L, Hemoglobin 9.7L, Hematocrit 31.1L, Mean Corpuscular Volume 77L, Mean Corpuscular Hemoglobin 23.9L, Mean Corpuscular Hemoglobin Concent 31.3L, Red Cell Distribution Width 14.4, Platelet Count 250, Mean Platelet Volume 6.7, Neutrophils (%) (Auto) 72.6, Lymphocytes (%) (Auto) 19.5L, Monocytes (%) (Auto) 6.1, Eosinophils (%) (Auto) 1.3, Basophils (%) (Auto) 0.4, Sodium Level 145, Potassium Level 3.5, Chloride Level 104, Carbon Dioxide Level 27, Anion Gap 14, Blood Urea Nitrogen 37H, Creatinine 2.9H, Estimat Glomerular Filtration Rate 16.2, Glucose Level 104, Calcium Level 9.2, Total Bilirubin 0.2, Aspartate Amino Transf (AST/SGOT) 14L, Alanine Aminotransferase (ALT/SGPT) 27, Alkaline Phosphatase 151H, Pro-B-Type Natriuretic Peptide 2575H, Total Protein 7.7, Albumin 2.8L, Globulin 4.9, Albumin/Globulin Ratio 0.6L Height (Feet): 5 Height (Inches): 2.00 Weight (Pounds): 137 Cardiovascular: normal rate Respiratory/Chest: lungs clear Extremities: other - no edema Carlos Alberto Jasmine MD May 13, 2018 13:59
--- NOTE | 2018-05-13 14:50 | Infectious Diseases Prog Note ---
Assessment/Plan Assessment/Plan Assessment: Probable PNA -05/12 CXR: Mild bilateral interstitial and airspace prominence is improved from the prior study. -influenza sc neg CHF exacerbation -CXR: Interim marked increase in interstitial edema, with fluffy bilateral perihilar and left retrocardiac airspace opacities also evident. There is suggestion of developing pleural fluid on the left as well. Acute respiratory failure s/p bipap, now on VM- 2ry to above Afebrile Leukocytosis, overall improving -u/a neg -Bcx NTD BELEN cx CKD HTN DM2 CKD Plan: -Continue empiric Ceftriaxone #4/5 and azithromycin d# 4/5 for atypical coverage -f.u cx -Monitor CBC/CMP, temperatures -legionella ag urine, sp cx -aspiration precautions Subjective Allergies: Coded Allergies: No Known Allergies (Unverified , 05/09/18) Subjective afebrile wbc improving on venturi mask Objective Vital Signs Last 24 Hour Vital Signs Date Time Temp Pulse Resp B/P (MAP) Pulse Ox O2 Delivery O2 Flow Rate FiO2 05/13/18 13:13 155/100 05/13/18 09:35 96 Venturi Mask 12.0 50 05/13/18 08:54 Venturi Mask 12.0 50 05/13/18 08:21 92 173/68 05/13/18 08:00 Room Air 05/13/18 08:00 98.9 92 18 173/68 (103) 98 05/13/18 05:54 143/67 05/13/18 04:05 98.0 76 17 143/67 (92) 100 05/13/18 00:00 98.3 80 18 137/62 (87) 100 05/12/18 22:02 Bi-pap 05/12/18 21:44 153/64 05/12/18 20:00 98.7 85 18 147/63 (91) 98 05/12/18 19:09 95 Room Air 21 05/12/18 19:09 Room Air 21 05/12/18 16:00 99.1 81 20 153/64 (93) 98 Height (Feet): 5 Height (Inches): 2.00 Weight (Pounds): 137 Objective General Appearance: cachetic HEENT: normocephalic, atraumatic Respiratory/Chest: chest wall non-tender, lungs clear Cardiovascular: normal peripheral pulses, normal rate Abdomen: normal bowel sounds, no organomegaly Genitourinary: normal external genitalia Laboratory Tests Test 05/13/18 05:47 White Blood Count 11.6 K/UL (4.8-10.8) H Red Blood Count 4.06 M/UL (4.20-5.40) L Hemoglobin 9.7 G/DL (12.0-16.0) L Hematocrit 31.1 % (37.0-47.0) L Mean Corpuscular Volume 77 FL (80-99) L Mean Corpuscular Hemoglobin 23.9 PG (27.0-31.0) L Mean Corpuscular Hemoglobin Concent 31.3 G/DL (32.0-36.0) L Red Cell Distribution Width 14.4 % (11.6-14.8) Platelet Count 250 K/UL (150-450) Mean Platelet Volume 6.7 FL (6.5-10.1) Neutrophils (%) (Auto) 72.6 % (45.0-75.0) Lymphocytes (%) (Auto) 19.5 % (20.0-45.0) L Monocytes (%) (Auto) 6.1 % (1.0-10.0) Eosinophils (%) (Auto) 1.3 % (0.0-3.0) Basophils (%) (Auto) 0.4 % (0.0-2.0) Sodium Level 145 MMOL/L (136-145) Potassium Level 3.5 MMOL/L (3.5-5.1) Chloride Level 104 MMOL/L (98-107) Carbon Dioxide Level 27 MMOL/L (21-32) Anion Gap 14 mmol/L (5-15) Blood Urea Nitrogen 37 mg/dL (7-18) H Creatinine 2.9 MG/DL (0.55-1.30) H Estimat Glomerular Filtration Rate 16.2 mL/min (>60) Glucose Level 104 MG/DL (74-106) Calcium Level 9.2 MG/DL (8.5-10.1) Total Bilirubin 0.2 MG/DL (0.2-1.0) Aspartate Amino Transf (AST/SGOT) 14 U/L (15-37) L Alanine Aminotransferase (ALT/SGPT) 27 U/L (12-78) Alkaline Phosphatase 151 U/L (46-116) H Pro-B-Type Natriuretic Peptide 2575 pg/mL (0-125) H Total Protein 7.7 G/DL (6.4-8.2) Albumin 2.8 G/DL (3.4-5.0) L Globulin 4.9 g/dL Albumin/Globulin Ratio 0.6 (1.0-2.7) L Current Medications Medications (Trade) Dose Ordered Sig/Marshall Route PRN Reason Start Time Stop Time Status Last Admin Dose Admin Azithromycin (Zithromax) 500 mg DAILY ORAL 05/13/18 09:00 05/18/18 08:59 05/13/18 08:21 Ceftriaxone Sodium 1 gm/ Dextrose 55 ml @ 110 mls/hr DAILY IVPB 05/13/18 09:00 05/17/18 12:59 05/13/18 09:06 Dextrose (Dextrose 50%) 25 ml Q30M PRN IV Hypoglycemia 05/12/18 14:45 06/09/18 05:44 Dextrose (Dextrose 50%) 50 ml Q30M PRN IV Hypoglycemia 05/12/18 14:45 06/09/18 05:44 Diltiazem HCl (Cardizem CD) 240 mg DAILY ORAL 05/13/18 09:00 06/11/18 08:59 05/13/18 08:21 Furosemide (Lasix) 40 mg EVERY 12 HOURS ORAL 05/12/18 21:00 06/11/18 10:14 05/13/18 08:20 Hydralazine HCl (Apresoline) 10 mg Q4H PRN IV sbp> 160 05/12/18 15:00 06/09/18 10:59 Hydralazine HCl (Apresoline) 100 mg Q8HR ORAL 05/13/18 14:00 06/10/18 21:59 05/13/18 13:13 Insulin Aspart (NovoLOG) BEFORE MEALS AND HS SUBQ 05/12/18 16:30 06/09/18 06:29 05/13/18 11:48 Ondansetron HCl (Zofran) 4 mg Q4H PRN IVP Nausea & Vomiting 05/12/18 15:00 06/09/18 10:59 Promethazine HCl/ Codeine (Phenergan with Codeine) 5 ml Q6H PRN ORAL For Cough 05/12/18 19:00 06/10/18 18:59 Maddy Gutierrez M.D. May 13, 2018 14:50
--- NOTE | 2018-05-13 15:12 | NUR ---
PATIENT RESTING COMFORTABLE AT THIS TIME.. RESTLESS AND ASKING TO GO HOME.. GAVE Jhonatan WELSH THE PATIENT PHONE NUMBER (DAUGHTER) TO UPDATE PATIENT STATUS NOTED.. DUE TO PATIENT DOESN'T SPEAK KITTITIAN...
--- NOTE | 2018-05-13 17:33 | NUR ---
PATIENT DAUGHTER PHONE # [phone] SHAKIRA
--- NOTE | 2018-05-13 17:34 | NUR ---
PATIENT HAS NO APPETITE , RESTING CALL LIGHT IN REACH
--- NOTE | 2018-05-13 17:38 | Internal Med Progress Note ---
Subjective Date of Service: May 13, 2018 Physician Name CeciliaMu Attending Physician Maico Jama MD Current Medications Medications (Trade) Dose Ordered Sig/Marshall Route PRN Reason Start Time Stop Time Status Last Admin Dose Admin Azithromycin (Zithromax) 500 mg DAILY ORAL 05/13/18 09:00 05/18/18 08:59 05/13/18 08:21 Ceftriaxone Sodium 1 gm/ Dextrose 55 ml @ 110 mls/hr DAILY IVPB 05/13/18 09:00 05/17/18 12:59 05/13/18 09:06 Dextrose (Dextrose 50%) 25 ml Q30M PRN IV Hypoglycemia 05/12/18 14:45 06/09/18 05:44 Dextrose (Dextrose 50%) 50 ml Q30M PRN IV Hypoglycemia 05/12/18 14:45 06/09/18 05:44 Diltiazem HCl (Cardizem CD) 240 mg DAILY ORAL 05/13/18 09:00 06/11/18 08:59 05/13/18 08:21 Furosemide (Lasix) 40 mg EVERY 12 HOURS ORAL 05/12/18 21:00 06/11/18 10:14 05/13/18 08:20 Hydralazine HCl (Apresoline) 10 mg Q4H PRN IV sbp> 160 05/12/18 15:00 06/09/18 10:59 Hydralazine HCl (Apresoline) 100 mg Q8HR ORAL 05/13/18 14:00 06/10/18 21:59 05/13/18 13:13 Insulin Aspart (NovoLOG) BEFORE MEALS AND HS SUBQ 05/12/18 16:30 06/09/18 06:29 05/13/18 11:48 Ondansetron HCl (Zofran) 4 mg Q4H PRN IVP Nausea & Vomiting 05/12/18 15:00 06/09/18 10:59 Promethazine HCl/ Codeine (Phenergan with Codeine) 5 ml Q6H PRN ORAL For Cough 05/12/18 19:00 06/10/18 18:59 Allergies: Coded Allergies: No Known Allergies (Unverified , 05/09/18) ROS Limited/Unobtainable: No Constitutional: Reports: no symptoms HEENT: Reports: no symptoms Cardiovascular: Reports: no symptoms Respiratory: Reports: shortness of breath Gastrointestinal/Abdominal: Reports: no symptoms Genitourinary: Reports: no symptoms Neurologic/Psychiatric: Reports: no symptoms Subjective 68 YO F admitted with shortness of breath. Now pneumonia and respiratory failure. Cover for Int [facility]-Dr Jama Objective Last Vital Signs Date Time Temp Pulse Resp B/P (MAP) Pulse Ox O2 Delivery O2 Flow Rate FiO2 05/13/18 16:00 98.3 90 146/66 (92) 05/13/18 12:00 20 05/13/18 09:35 96 Venturi Mask 12.0 50 Laboratory Tests Test 05/13/18 05:47 White Blood Count 11.6 K/UL (4.8-10.8) H Red Blood Count 4.06 M/UL (4.20-5.40) L Hemoglobin 9.7 G/DL (12.0-16.0) L Hematocrit 31.1 % (37.0-47.0) L Mean Corpuscular Volume 77 FL (80-99) L Mean Corpuscular Hemoglobin 23.9 PG (27.0-31.0) L Mean Corpuscular Hemoglobin Concent 31.3 G/DL (32.0-36.0) L Red Cell Distribution Width 14.4 % (11.6-14.8) Platelet Count 250 K/UL (150-450) Mean Platelet Volume 6.7 FL (6.5-10.1) Neutrophils (%) (Auto) 72.6 % (45.0-75.0) Lymphocytes (%) (Auto) 19.5 % (20.0-45.0) L Monocytes (%) (Auto) 6.1 % (1.0-10.0) Eosinophils (%) (Auto) 1.3 % (0.0-3.0) Basophils (%) (Auto) 0.4 % (0.0-2.0) Sodium Level 145 MMOL/L (136-145) Potassium Level 3.5 MMOL/L (3.5-5.1) Chloride Level 104 MMOL/L (98-107) Carbon Dioxide Level 27 MMOL/L (21-32) Anion Gap 14 mmol/L (5-15) Blood Urea Nitrogen 37 mg/dL (7-18) H Creatinine 2.9 MG/DL (0.55-1.30) H Estimat Glomerular Filtration Rate 16.2 mL/min (>60) Glucose Level 104 MG/DL (74-106) Calcium Level 9.2 MG/DL (8.5-10.1) Total Bilirubin 0.2 MG/DL (0.2-1.0) Aspartate Amino Transf (AST/SGOT) 14 U/L (15-37) L Alanine Aminotransferase (ALT/SGPT) 27 U/L (12-78) Alkaline Phosphatase 151 U/L (46-116) H Pro-B-Type Natriuretic Peptide 2575 pg/mL (0-125) H Total Protein 7.7 G/DL (6.4-8.2) Albumin 2.8 G/DL (3.4-5.0) L Globulin 4.9 g/dL Albumin/Globulin Ratio 0.6 (1.0-2.7) L Intake and Output 05/12/18 05/13/18 19:00 07:00 Intake Total 800 ml 250 ml Output Total 550 ml 650 ml Balance 250 ml -400 ml Intake Oral 250 ml Other 800 ml Output Urine Total 550 ml 650 ml Objective PHYSICAL EXAMINATION: VITAL SIGNS: On admission, temperature 97.5, pulse of 88, respirations 24, blood pressure 174/56. GENERAL: The patient is awake, responsive, not in no acute distress. HEAD AND NECK: Pupils equal and reactive to light. Extraocular movements are intact. Neck was supple. No JVD. LUNGS: Good air entry. No wheezes or rhonchi. Decreased in bases. Occasional crackles in the bases. HEART: S1 and S2. Regular rhythm. ABDOMEN: Soft, nondistended, nontender. Positive bowel sounds. The patient has epigastric tenderness. EXTREMITIES: No cyanosis, clubbing, edema. NEUROLOGIC: Cranial nerves II through XII grossly intact. Motor is 5/5 in all extremities. Assessment/Plan Assessment/Plan ASSESSMENT: 1. Pneumonia/Sepsis. 2. Acute hypoxemic respiratory failure. 3. Acute CHF exacerbation. 4. Hyperkalemia. 5. Hyponatremia. 6. Diabetes type 2. 7. Hypertension. 8. Diabetic nephropathy. PLAN: 1.Med/Surg 2. We will follow up laboratory, cultures. 3. We will monitor potassium level closely. 4. Kayexalate, D50, insulin. 5. Discussed with Dr. Hills, Pulmonary Critical Care and Dr. Carlos Alberto Jasmine from Nephrology and Dr. Carlo Ferrari from Cardiology. 6. Follow up with 2D echo. 7. Code status is Full Code. 8. DVT prophylaxis. Heparin subcutaneous. 9. Continue ceftriaxone and azithromycin Mu Brooks MD May 13, 2018 17:38
--- NOTE | 2018-05-13 18:47 | NUR ---
PATIENT IS AWARE OF URINE SPECIMEN AND SPUTUM INFORMED ON COMING NURSE ...
--- NOTE | 2018-05-13 22:59 | Cardiology Progress Note ---
Assessment/Plan Assessment/Plan 1. Acute heart failure with preserved ejection fraction, LVEF ~ 65%. Continue hydralazine, furosemide and diltiazem, off ACEI/ARBSs. CXR has improved. 2. Accelerated hypertension. 3. History of diabetes mellitus. 4. Most likely CKD, per patient renal failure known for the past three months, non-oliguric. Objective Last 24 Hour Vital Signs Date Time Temp Pulse Resp B/P (MAP) Pulse Ox O2 Delivery O2 Flow Rate FiO2 05/13/18 21:34 158/84 05/13/18 16:00 98.3 90 146/66 (92) 05/13/18 13:13 155/100 05/13/18 12:00 98.5 89 20 155/89 (111) 05/13/18 09:35 96 Venturi Mask 12.0 50 05/13/18 08:54 Venturi Mask 12.0 50 05/13/18 08:21 92 173/68 05/13/18 08:00 Room Air 05/13/18 08:00 98.9 92 18 173/68 (103) 98 05/13/18 05:54 143/67 05/13/18 04:05 98.0 76 17 143/67 (92) 100 05/13/18 00:00 98.3 80 18 137/62 (87) 100 Intake and Output 05/12/18 05/13/18 19:00 07:00 Intake Total 800 ml 250 ml Output Total 550 ml 650 ml Balance 250 ml -400 ml Intake Oral 250 ml Other 800 ml Output Urine Total 550 ml 650 ml Laboratory Tests Test 05/13/18 05:47 White Blood Count 11.6 K/UL (4.8-10.8) H Red Blood Count 4.06 M/UL (4.20-5.40) L Hemoglobin 9.7 G/DL (12.0-16.0) L Hematocrit 31.1 % (37.0-47.0) L Mean Corpuscular Volume 77 FL (80-99) L Mean Corpuscular Hemoglobin 23.9 PG (27.0-31.0) L Mean Corpuscular Hemoglobin Concent 31.3 G/DL (32.0-36.0) L Red Cell Distribution Width 14.4 % (11.6-14.8) Platelet Count 250 K/UL (150-450) Mean Platelet Volume 6.7 FL (6.5-10.1) Neutrophils (%) (Auto) 72.6 % (45.0-75.0) Lymphocytes (%) (Auto) 19.5 % (20.0-45.0) L Monocytes (%) (Auto) 6.1 % (1.0-10.0) Eosinophils (%) (Auto) 1.3 % (0.0-3.0) Basophils (%) (Auto) 0.4 % (0.0-2.0) Sodium Level 145 MMOL/L (136-145) Potassium Level 3.5 MMOL/L (3.5-5.1) Chloride Level 104 MMOL/L (98-107) Carbon Dioxide Level 27 MMOL/L (21-32) Anion Gap 14 mmol/L (5-15) Blood Urea Nitrogen 37 mg/dL (7-18) H Creatinine 2.9 MG/DL (0.55-1.30) H Estimat Glomerular Filtration Rate 16.2 mL/min (>60) Glucose Level 104 MG/DL (74-106) Calcium Level 9.2 MG/DL (8.5-10.1) Total Bilirubin 0.2 MG/DL (0.2-1.0) Aspartate Amino Transf (AST/SGOT) 14 U/L (15-37) L Alanine Aminotransferase (ALT/SGPT) 27 U/L (12-78) Alkaline Phosphatase 151 U/L (46-116) H Pro-B-Type Natriuretic Peptide 2575 pg/mL (0-125) H Total Protein 7.7 G/DL (6.4-8.2) Albumin 2.8 G/DL (3.4-5.0) L Globulin 4.9 g/dL Albumin/Globulin Ratio 0.6 (1.0-2.7) L Objective HEENT: Atraumatic and normocephalic. Anicteric. Pupils are equal, round, and reactive to light and accommodation. Extraocular muscles are intact. NECK: JVP about 10 cm. No carotid bruit. Carotid upstroke is 2+ bilaterally. CVS: Normal S1, S2. Regular rate and rhythm. No murmurs, gallops, or rubs. LUNGS: Bibasilar crackles. ABDOMEN: Soft, nontender, and nondistended. No hepatosplenomegaly. Positive bowel sounds. EXTREMITIES: No evidence of edema, clubbing, or cyanosis. Carlo Ferrari MD May 13, 2018 22:59
[2018-05-14] VITALS (8 sets, daily range): BP systolic 139–158; BP diastolic 57–82
--- NOTE | 2018-05-14 01:50 | NUR ---
NURSE NOTES:Patient not drinking enough fluids . patient encourage to drink 120 cc and offer fluids every hour. reinforced needed. patient requested normal saline IVF Omaira CRYSTAL . CALL DREW Addendum: 05/14/18 at 0543 by MORIS VINCENT LVN Left message to Dr. Brooks still awaiting to call back Keena CRYSTAL Notified and aware .will continue to monitor
[2018-05-14] MEDS ORDERED: 1/2NS w/KCl 20mEq 1000ml 1,000 ML IV SCH (06:30)
--- NOTE | 2018-05-14 06:30 | NUR ---
NURSE NOTES: Dr. ALSTON Called with new orders 02/20 ns with 20 meq@ 50cc/hr. endorsed CECILIO Benítez IVF still in pharmacy. Addendum: 05/14/18 at 0811 by MORIS VINCENT LVN ENDORSEDD TO CECILIO Sagastume to follow upPatient IVF. left message to Pharmacy
[2018-05-14] MEDS: HydrALAZINE 50mg tab ORAL SCH ×2 (06:52→14:17)
[2018-05-14] MEDS: NovoLOG Insulin Flexpen SUBQ SCH ×3 (06:59→16:30)
[2018-05-14 07:17] LABS: BASOPHILS % (AUTO) 0.3 % (0.0-2.0); EOSINOPHILS % (AUTO) 0.3 % (0.0-3.0); HEMATOCRIT 31.1 % (37.0-47.0); HEMOGLOBIN 9.7 G/DL (12.0-16.0); LYMPHOCYTES % (AUTO) 11.3 % (20.0-45.0); MEAN CORPUSCULAR VOLUME 76 FL (80-99); MONOCYTES % (AUTO) 3.9 % (1.0-10.0); NEUTROPHILS % (AUTO) 84.2 % (45.0-75.0); PLATELET COUNT 289 K/UL (150-450); RED BLOOD COUNT 4.09 M/UL (4.20-5.40); RED CELL DISTRIBUTION WIDTH 14.2 % (11.6-14.8); WHITE BLOOD COUNT 13.9 K/UL (4.8-10.8)
--- NOTE | 2018-05-14 07:55 | NUR ---
HAND-OFF: Report given to Saadia ANGELO
[2018-05-14 08:11] LABS: ANION GAP 11 mmol/L (5-15); BLOOD UREA NITROGEN 47 mg/dL (7-18); CALCIUM 9.5 MG/DL (8.5-10.1); CARBON DIOXIDE 27 MMOL/L (21-32); CHLORIDE 103 MMOL/L (98-107); CREATININE 2.9 MG/DL (0.55-1.30); POTASSIUM 3.8 MMOL/L (3.5-5.1); SODIUM 141 MMOL/L (136-145)
--- NOTE | 2018-05-14 08:17 | NUR ---
CASE MANAGEMENT:REVIEW 05/14/18 SI: SEPSIS. ACUTE RESP FAILURE. ACUTE CHF. PNA 98.2 84 19 148/68 98% ON RA WBC+13.9 BUN+47 CR+2.9 IS: IVF@ 50/HR IV ROCEPHIN Q24 HYDRALAZINE PO Q8HR AZITHROMYCIN PO QD CARDIZEM PO QD LASIX PO Q12 : MED/SURG STATUS 3 EAST DCP: FROM HOME PLAN: MONITOR RENAL FUNCTION
[2018-05-14] MEDS: dilTIAZem HCl CD 240mg cap ORAL SCH (08:19)
[2018-05-14] MEDS: Azithromycin 250mg tab ORAL SCH (08:19)
[2018-05-14] MEDS: Furosemide 40mg tab ORAL SCH (08:20)
[2018-05-14] MEDS: cefTRIAXone 1 GM in D5W 55 ML IVPB SCH (09:23)
--- NOTE | 2018-05-14 09:46 | NUR ---
RECEIVED PATIENT IN BED ALERT AND AWAKE.. NO RESPIRATORY DISTRESS OR SOB. HAS LARGE AMOUNT OF SPUTUM WITH PRODUCTIVE COUGH PATIENT RESTING COMFORTABLE, BUT C/O DIZZINESS BLOOD PRESSURE WNL DAUGHTER AT BEDSIDE... DUE TO LANGUAGE BARRIER CT CHEST DONE NTOED CALL LIGHT INR EACH
[2018-05-14] MEDS ORDERED: APRESOLINE50 MG ORAL (11:28)
--- NOTE | 2018-05-14 11:35 | Pulmonology Progress Note ---
Assessment/Plan Problems: (1) Acute respiratory failure with hypoxia (2) Acute exacerbation of CHF (congestive heart failure) (3) Acute hyperkalemia (4) Diabetes mellitus (5) History of hypertension (6) Diabetic nephropathy Assessment/Plan so far - 3 liters fluid balance CXR improved, with hilar fullness, CT chest done, pending review with radiologist change lasix to po K is better sliding scale, add Januvia diabetic diet check cultures abx as per ID serology pending, finishing abx today dc heparin S@ Med/surg Subjective ROS Limited/Unobtainable: No Interval Events: no new complains Constitutional: Reports: no symptoms HEENT: Repors: no symptoms Allergies: Coded Allergies: No Known Allergies (Unverified , 05/09/18) Objective Last 24 Hour Vital Signs Date Time Temp Pulse Resp B/P (MAP) Pulse Ox O2 Delivery O2 Flow Rate FiO2 05/14/18 09:36 97 Room Air 21 05/14/18 09:36 Room Air 21 05/14/18 09:00 Room Air 05/14/18 08:19 81 144/56 05/14/18 08:00 98.1 90 20 144/75 (98) 97 05/14/18 06:52 148/84 05/14/18 06:00 98.2 84 19 148/68 (94) 98 05/14/18 04:01 98.2 73 18 139/72 (94) 98 05/14/18 04:00 98.2 19 139/72 (94) 98 05/14/18 00:01 98.1 78 17 148/82 (104) 97 05/14/18 00:00 98.1 78 17 148/82 (104) 97 05/13/18 21:34 158/84 05/13/18 21:30 98.2 77 18 158/84 (108) 98 05/13/18 21:00 Room Air 05/13/18 20:00 98.2 73 18 160/87 (111) 98 05/13/18 19:54 98 Room Air 21 05/13/18 19:54 Room Air 21 05/13/18 16:00 98.3 90 146/66 (92) 05/13/18 13:13 155/100 05/13/18 12:00 98.5 89 20 155/89 (111) Intake and Output 05/13/18 05/14/18 19:00 07:00 Intake Total 1200 ml 920 ml Output Total 400 ml 250 ml Balance 800 ml 670 ml Intake Oral 1200 ml 920 ml Output Urine Total 400 ml 250 ml # Voids 1 # Bowel Movements 1 General Appearance: WD/WN HEENT: normocephalic, atraumatic Respiratory/Chest: chest wall non-tender, normal breath sounds Breasts: no masses Cardiovascular: normal peripheral pulses Abdomen: normal bowel sounds, soft, non tender Genitourinary: normal external genitalia Extremities: no clubbing Skin: no rash Laboratory Tests 05/13/18 22:07: Urine Legionella Antigen [Pending] 05/14/18 05:55: White Blood Count 13.9H, Red Blood Count 4.09L, Hemoglobin 9.7L, Hematocrit 31.1L, Mean Corpuscular Volume 76L, Mean Corpuscular Hemoglobin 23.7L, Mean Corpuscular Hemoglobin Concent 31.2L, Red Cell Distribution Width 14.2, Platelet Count 289, Mean Platelet Volume 5.8L, Neutrophils (%) (Auto) 84.2H, Lymphocytes (%) (Auto) 11.3L, Monocytes (%) (Auto) 3.9, Eosinophils (%) (Auto) 0.3, Basophils (%) (Auto) 0.3, Sodium Level 141, Potassium Level 3.8, Chloride Level 103, Carbon Dioxide Level 27, Anion Gap 11, Blood Urea Nitrogen 47H, Creatinine 2.9H, Estimat Glomerular Filtration Rate 16.2, Glucose Level 185H, Calcium Level 9.5 Current Medications Medications (Trade) Dose Ordered Sig/Marshall Route PRN Reason Start Time Stop Time Status Last Admin Dose Admin Azithromycin (Zithromax) 500 mg DAILY ORAL 05/13/18 09:00 05/18/18 08:59 05/14/18 08:19 Ceftriaxone Sodium 1 gm/ Dextrose 55 ml @ 110 mls/hr DAILY IVPB 05/13/18 09:00 05/17/18 12:59 05/14/18 09:23 Dextrose (Dextrose 50%) 25 ml Q30M PRN IV Hypoglycemia 05/12/18 14:45 06/09/18 05:44 Dextrose (Dextrose 50%) 50 ml Q30M PRN IV Hypoglycemia 05/12/18 14:45 06/09/18 05:44 Diltiazem HCl (Cardizem CD) 240 mg DAILY ORAL 05/13/18 09:00 06/11/18 08:59 05/14/18 08:19 Furosemide (Lasix) 40 mg EVERY 12 HOURS ORAL 05/12/18 21:00 06/11/18 10:14 05/14/18 08:20 Hydralazine HCl (Apresoline) 10 mg Q4H PRN IV sbp> 160 05/12/18 15:00 06/09/18 10:59 Hydralazine HCl (Apresoline) 100 mg Q8HR ORAL 05/13/18 14:00 06/10/18 21:59 05/14/18 06:52 Insulin Aspart (NovoLOG) BEFORE MEALS AND HS SUBQ 05/12/18 16:30 06/09/18 06:29 05/14/18 06:59 Ondansetron HCl (Zofran) 4 mg Q4H PRN IVP Nausea & Vomiting 05/12/18 15:00 06/09/18 10:59 Promethazine HCl/ Codeine (Phenergan with Codeine) 5 ml Q6H PRN ORAL For Cough 05/12/18 19:00 06/10/18 18:59 Sodium 1,000 ml @ 50 mls/hr Q20H IV 05/14/18 06:30 06/13/18 06:29 05/14/18 08:56 Jossue Hills MD May 14, 2018 11:35
--- NOTE | 2018-05-14 12:44 | Nephrology Progress Note ---
Assessment/Plan Problem List: (1) Acute exacerbation of CHF (congestive heart failure) (2) Diabetes mellitus (3) History of hypertension (4) Diabetic nephropathy Assessment: stable (5) Acute hyperkalemia Assessment: ok now (6) Acute on chronic renal failure Assessment: renal function stable baseline ? Plan check PTH and vitamin D level. follow BMP Discussed with RN and physical therapist. VERENA Laguerre. Subjective Subjective Patient is complaining of dizziness and nausea. Objective Objective Last 24 Hour Vital Signs Date Time Temp Pulse Resp B/P (MAP) Pulse Ox O2 Delivery O2 Flow Rate FiO2 05/14/18 09:36 97 Room Air 21 05/14/18 09:36 Room Air 21 05/14/18 09:00 Room Air 05/14/18 08:19 81 144/56 05/14/18 08:00 98.1 90 20 144/75 (98) 97 05/14/18 06:52 148/84 05/14/18 06:00 98.2 84 19 148/68 (94) 98 05/14/18 04:01 98.2 73 18 139/72 (94) 98 05/14/18 04:00 98.2 19 139/72 (94) 98 05/14/18 00:01 98.1 78 17 148/82 (104) 97 05/14/18 00:00 98.1 78 17 148/82 (104) 97 05/13/18 21:34 158/84 05/13/18 21:30 98.2 77 18 158/84 (108) 98 05/13/18 21:00 Room Air 05/13/18 20:00 98.2 73 18 160/87 (111) 98 05/13/18 19:54 98 Room Air 21 05/13/18 19:54 Room Air 21 05/13/18 16:00 98.3 90 146/66 (92) 05/13/18 13:13 155/100 Intake and Output 05/13/18 05/14/18 19:00 07:00 Intake Total 1200 ml 920 ml Output Total 400 ml 250 ml Balance 800 ml 670 ml Intake Oral 1200 ml 920 ml Output Urine Total 400 ml 250 ml # Voids 1 # Bowel Movements 1 Laboratory Tests 05/13/18 22:07: Urine Legionella Antigen [Pending] 05/14/18 05:55: White Blood Count 13.9H, Red Blood Count 4.09L, Hemoglobin 9.7L, Hematocrit 31.1L, Mean Corpuscular Volume 76L, Mean Corpuscular Hemoglobin 23.7L, Mean Corpuscular Hemoglobin Concent 31.2L, Red Cell Distribution Width 14.2, Platelet Count 289, Mean Platelet Volume 5.8L, Neutrophils (%) (Auto) 84.2H, Lymphocytes (%) (Auto) 11.3L, Monocytes (%) (Auto) 3.9, Eosinophils (%) (Auto) 0.3, Basophils (%) (Auto) 0.3, Sodium Level 141, Potassium Level 3.8, Chloride Level 103, Carbon Dioxide Level 27, Anion Gap 11, Blood Urea Nitrogen 47H, Creatinine 2.9H, Estimat Glomerular Filtration Rate 16.2, Glucose Level 185H, Calcium Level 9.5 Height (Feet): 5 Height (Inches): 2.00 Weight (Pounds): 137 Cardiovascular: normal rate Respiratory/Chest: lungs clear Extremities: trace edema Carlos Alberto Jasmine MD May 14, 2018 12:44
--- NOTE | 2018-05-14 13:24 | NUR ---
DISCHARGE PLAN CASE MANAGEMENT ORDER NOTED AND CONFIRMED WITH DR TORRE INSTRUCTED BY DR TORRE TO CANCEL ORDER FOR PHYSICAL THERAPY
--- NOTE | 2018-05-14 14:36 | NUR ---
*-* INSURANCE *-* UPDATED CLINICALS AND REVIEWS HAVE BEEN FAXED TO: DEANN Bhandari [phone]
--- NOTE | 2018-05-14 14:56 | NUR ---
P.T Note: late entry 1030 P.T evaluation complete and treatment initiated. Please refer to P.T evaluation for current functional status. Pt presented generalized weakness and appeared to in deconditioned state. Pt currently require extended time and MIN A x 1 in performing bed mobility , transfers and gait/ambulation activities using the FWW. Pt tolerated P.T evaluation poorly as evidenced by multiple long periods of rest breaks. Skilled P.T service is warranted to improve her strength and activity tolerance. Pt is scheduled for DC to home today. Recommend home P.T and FWW upon DC. Thank you for this referral.
--- NOTE | 2018-05-14 15:37 | NUR ---
PATIENT IS RESTING IN BED.. HAS MILD CASE OF DIZZINESS WHEN GETTING UP Jhonatan WELSH AND Gabe MORSE. PATIENT INFORMED BY DAUGHTER INFORMED TO USE CALL LIGHT WHEN GETTING OUT OF BED.. AWAITING ON DAUGHTER FOR PASTORAL COUNSELOR .. DISCHARGE TO HOME.. PRESCRIPTION FILLED
--- NOTE | 2018-05-14 16:23 | Infectious Diseases Prog Note ---
Assessment/Plan Assessment/Plan Assessment: Probable PNA -05/12 CXR: Mild bilateral interstitial and airspace prominence is improved from the prior study. -influenza sc neg CHF exacerbation -CXR: Interim marked increase in interstitial edema, with fluffy bilateral perihilar and left retrocardiac airspace opacities also evident. There is suggestion of developing pleural fluid on the left as well. Acute respiratory failure s/p bipap, now on VM- 2ry to above Afebrile Leukocytosis, overall improving -u/a neg -Bcx NTD BELEN cx CKD HTN DM2 CKD Plan: -Continue empiric Ceftriaxone #5/5-7 and azithromycin d# 5/5 for atypical coverage -f.u cx -Monitor CBC/CMP, temperatures -f/u egionella ag urine, sp cx -aspiration precautions -CXR am -Cdiff if diarrhea Subjective Allergies: Coded Allergies: No Known Allergies (Unverified , 05/09/18) Subjective afebrile wbc slightly increased now at RA Objective Vital Signs Last 24 Hour Vital Signs Date Time Temp Pulse Resp B/P (MAP) Pulse Ox O2 Delivery O2 Flow Rate FiO2 05/14/18 14:17 150/55 05/14/18 12:00 98.4 80 18 158/58 (91) 98 05/14/18 09:36 97 Room Air 21 05/14/18 09:36 Room Air 21 05/14/18 09:00 Room Air 05/14/18 08:19 81 144/56 05/14/18 08:00 98.1 90 20 144/75 (98) 97 05/14/18 06:52 148/84 05/14/18 06:00 98.2 84 19 148/68 (94) 98 05/14/18 04:01 98.2 73 18 139/72 (94) 98 05/14/18 04:00 98.2 19 139/72 (94) 98 05/14/18 00:01 98.1 78 17 148/82 (104) 97 05/14/18 00:00 98.1 78 17 148/82 (104) 97 05/13/18 21:34 158/84 05/13/18 21:30 98.2 77 18 158/84 (108) 98 05/13/18 21:00 Room Air 05/13/18 20:00 98.2 73 18 160/87 (111) 98 05/13/18 19:54 98 Room Air 21 05/13/18 19:54 Room Air 21 Height (Feet): 5 Height (Inches): 2.00 Weight (Pounds): 137 Objective General Appearance: cachetic HEENT: normocephalic, atraumatic Respiratory/Chest: chest wall non-tender, lungs clear Cardiovascular: normal peripheral pulses, normal rate Abdomen: normal bowel sounds, no organomegaly Genitourinary: normal external genitalia Laboratory Tests Test 05/13/18 22:07 05/14/18 05:55 Urine Legionella Antigen Pending White Blood Count 13.9 K/UL (4.8-10.8) H Red Blood Count 4.09 M/UL (4.20-5.40) L Hemoglobin 9.7 G/DL (12.0-16.0) L Hematocrit 31.1 % (37.0-47.0) L Mean Corpuscular Volume 76 FL (80-99) L Mean Corpuscular Hemoglobin 23.7 PG (27.0-31.0) L Mean Corpuscular Hemoglobin Concent 31.2 G/DL (32.0-36.0) L Red Cell Distribution Width 14.2 % (11.6-14.8) Platelet Count 289 K/UL (150-450) Mean Platelet Volume 5.8 FL (6.5-10.1) L Neutrophils (%) (Auto) 84.2 % (45.0-75.0) H Lymphocytes (%) (Auto) 11.3 % (20.0-45.0) L Monocytes (%) (Auto) 3.9 % (1.0-10.0) Eosinophils (%) (Auto) 0.3 % (0.0-3.0) Basophils (%) (Auto) 0.3 % (0.0-2.0) Sodium Level 141 MMOL/L (136-145) Potassium Level 3.8 MMOL/L (3.5-5.1) Chloride Level 103 MMOL/L (98-107) Carbon Dioxide Level 27 MMOL/L (21-32) Anion Gap 11 mmol/L (5-15) Blood Urea Nitrogen 47 mg/dL (7-18) H Creatinine 2.9 MG/DL (0.55-1.30) H Estimat Glomerular Filtration Rate 16.2 mL/min (>60) Glucose Level 185 MG/DL (74-106) H Calcium Level 9.5 MG/DL (8.5-10.1) Current Medications Medications (Trade) Dose Ordered Sig/Marshall Route PRN Reason Start Time Stop Time Status Last Admin Dose Admin Azithromycin (Zithromax) 500 mg DAILY ORAL 05/13/18 09:00 05/18/18 08:59 05/14/18 08:19 Ceftriaxone Sodium 1 gm/ Dextrose 55 ml @ 110 mls/hr DAILY IVPB 05/13/18 09:00 05/17/18 12:59 05/14/18 09:23 Dextrose (Dextrose 50%) 25 ml Q30M PRN IV Hypoglycemia 05/12/18 14:45 06/09/18 05:44 Dextrose (Dextrose 50%) 50 ml Q30M PRN IV Hypoglycemia 05/12/18 14:45 06/09/18 05:44 Diltiazem HCl (Cardizem CD) 240 mg DAILY ORAL 05/13/18 09:00 06/11/18 08:59 05/14/18 08:19 Hydralazine HCl (Apresoline) 10 mg Q4H PRN IV sbp> 160 05/12/18 15:00 06/09/18 10:59 Hydralazine HCl (Apresoline) 100 mg Q8HR ORAL 05/13/18 14:00 06/10/18 21:59 05/14/18 14:17 Insulin Aspart (NovoLOG) BEFORE MEALS AND HS SUBQ 05/12/18 16:30 06/09/18 06:29 05/14/18 12:34 Ondansetron HCl (Zofran) 4 mg Q4H PRN IVP Nausea & Vomiting 05/12/18 15:00 06/09/18 10:59 Promethazine HCl/ Codeine (Phenergan with Codeine) 5 ml Q6H PRN ORAL For Cough 05/12/18 19:00 06/10/18 18:59 Sitagliptin Phosphate (Januvia) 25 mg ACBREAKFAST ORAL 05/15/18 06:30 06/14/18 06:29 Maddy Gutierrez M.D. May 14, 2018 16:23
--- NOTE | 2018-05-14 17:28 | NUR ---
DAUGHTER AND ARRIVED AND DIRECTOR OF PHYSICAL SECURITY PATIENT REMOVED HEP LOCK AND DRESSED REMOVED NEWBERRY CATHETER.. INFORMED TO FOLLOW UP WITH PRIMARY DOCTOR IN A.M. 05/15/2018... CHECKED GLUCOSE PRIOR REFUSED INSULIN COVERAGE DUE TO NOT EATING
--- NOTE | 2018-05-14 17:34 | NUR ---
ESCORTED BY AERIAL PLANTING AND CULTIVATION MANAGER VIA WHEEL CHAIR.. PATIENT IS STABLE .
[2018-05-14] MEDS ORDERED: Tubing IV Secondary IV ONE (17:39)
--- NOTE | 2018-05-14 18:34 | Internal Med Progress Note ---
Subjective Date of Service: May 14, 2018 Physician Name Mu Brooks Attending Physician Maico Jama MD Allergies: Coded Allergies: No Known Allergies (Unverified , 05/09/18) ROS Limited/Unobtainable: No Constitutional: Reports: no symptoms HEENT: Reports: no symptoms Cardiovascular: Reports: no symptoms Respiratory: Reports: no symptoms Gastrointestinal/Abdominal: Reports: no symptoms Genitourinary: Reports: no symptoms Neurologic/Psychiatric: Reports: no symptoms Subjective 68 YO F admitted with shortness of breath. Now pneumonia and respiratory failure. Cover for Int Med-Dr Jama Objective Last Vital Signs Date Time Temp Pulse Resp B/P (MAP) Pulse Ox O2 Delivery O2 Flow Rate FiO2 05/14/18 16:00 98.0 87 20 149/57 (87) 98 05/14/18 09:36 Room Air 21 05/13/18 09:35 12.0 Laboratory Tests Test 05/13/18 22:07 05/14/18 05:55 Urine Legionella Antigen Pending White Blood Count 13.9 K/UL (4.8-10.8) H Red Blood Count 4.09 M/UL (4.20-5.40) L Hemoglobin 9.7 G/DL (12.0-16.0) L Hematocrit 31.1 % (37.0-47.0) L Mean Corpuscular Volume 76 FL (80-99) L Mean Corpuscular Hemoglobin 23.7 PG (27.0-31.0) L Mean Corpuscular Hemoglobin Concent 31.2 G/DL (32.0-36.0) L Red Cell Distribution Width 14.2 % (11.6-14.8) Platelet Count 289 K/UL (150-450) Mean Platelet Volume 5.8 FL (6.5-10.1) L Neutrophils (%) (Auto) 84.2 % (45.0-75.0) H Lymphocytes (%) (Auto) 11.3 % (20.0-45.0) L Monocytes (%) (Auto) 3.9 % (1.0-10.0) Eosinophils (%) (Auto) 0.3 % (0.0-3.0) Basophils (%) (Auto) 0.3 % (0.0-2.0) Sodium Level 141 MMOL/L (136-145) Potassium Level 3.8 MMOL/L (3.5-5.1) Chloride Level 103 MMOL/L (98-107) Carbon Dioxide Level 27 MMOL/L (21-32) Anion Gap 11 mmol/L (5-15) Blood Urea Nitrogen 47 mg/dL (7-18) H Creatinine 2.9 MG/DL (0.55-1.30) H Estimat Glomerular Filtration Rate 16.2 mL/min (>60) Glucose Level 185 MG/DL (74-106) H Calcium Level 9.5 MG/DL (8.5-10.1) Intake and Output 05/13/18 05/14/18 19:00 07:00 Intake Total 1200 ml 920 ml Output Total 400 ml 250 ml Balance 800 ml 670 ml Intake Oral 1200 ml 920 ml Output Urine Total 400 ml 250 ml # Voids 1 # Bowel Movements 1 Objective PHYSICAL EXAMINATION: VITAL SIGNS: On admission, temperature 97.5, pulse of 88, respirations 24, blood pressure 174/56. GENERAL: The patient is awake, responsive, not in no acute distress. HEAD AND NECK: Pupils equal and reactive to light. Extraocular movements are intact. Neck was supple. No JVD. LUNGS: Good air entry. No wheezes or rhonchi. Decreased in bases. Occasional crackles in the bases. HEART: S1 and S2. Regular rhythm. ABDOMEN: Soft, nondistended, nontender. Positive bowel sounds. The patient has epigastric tenderness. EXTREMITIES: No cyanosis, clubbing, edema. NEUROLOGIC: Cranial nerves II through XII grossly intact. Motor is 5/5 in all extremities. Assessment/Plan Assessment/Plan ASSESSMENT: 1. Pneumonia/Sepsis. 2. Acute hypoxemic respiratory failure. 3. Acute CHF exacerbation. 4. Hyperkalemia. 5. Hyponatremia. 6. Diabetes type 2. 7. Hypertension. 8. Diabetic nephropathy. PLAN: 1.Med/Surg 2. We will follow up laboratory, cultures. 3. We will monitor potassium level closely. 4. Kayexalate, D50, insulin. 5. Discussed with Dr. Hills, Pulmonary Critical Care and Dr. Carlos Alberto Jasmine from Nephrology and Dr. Carlo Ferrari from Cardiology. 6. Follow up with 2D echo. 7. Code status is Full Code. 8. DVT prophylaxis. Heparin subcutaneous. 9. Continue ceftriaxone and azithromycin 10. D/C home today 3/26/19 Mu Brooks MD May 14, 2018 18:34
--- NOTE | 2018-05-14 19:14 | Cardiology Report ---
APPROVED REPORT EKG Measurement Heart [id number] Normal sinus rhythm Nonspecific ST abnormality Abnormal ECG
--- NOTE | 2018-05-14 19:15 | Diagnostic Imaging Report ---
Indication: Chest pain Technique: Continuous helical transaxial imaging of the chest was obtained from the thoracic inlet to the upper abdomen. No intravenous contrast was administered. Coronal 2-D reformats were also obtained. Total Dose length Product (DLP): 563.[address] Dose Index Volume (CTDIvol): 16.95 mGy Comparison: none Findings: Evaluation limited on the basis of a noncontrast examination. There is mild calcification of the aorta. Hiatal hernia noted. There is a small hypodensity measuring less than 1 cm in the anterior dome of the liver. Gallstones are present. Minimal posterior basal atelectasis demonstrated. No consolidation identified. No lung nodules are seen. Small nodes are seen in the mediastinum nonspecific. IMPRESSION: No acute findings. Multiple incidental findings as above The CT scanner at [facility] is accredited by the [employer] and the scans are performed using dose optimization techniques as appropriate to a performed exam including Automatic Exposure control.
--- NOTE | 2018-05-14 19:16 | Diagnostic Imaging Report ---
APPROVED REPORT CPT Code: 78929 Present Symptoms Lower Extremity Pain: BILATERAL: Imaging reveals a patent deep venous system bilaterally. There is no evidence of thrombus within the femoral, popliteal or tibial segments. The greater saphenous veins are also within normal limits. Doppler indicates normal spontaneous flow within these segments.
[2018-05-15] MEDS ORDERED: sitaGLIPtin 25mg tab ORAL SCH (06:30)
--- NOTE | 2018-05-15 10:38 | Discharge Summary ---
Discharge Summary Discharge Summary _ DATE OF ADMISSION: 05/10/2018 DATE OF DISCHARGE: 05/14/2018 DISCHARGED BY: Dr. Jama REASON FOR ADMISSION: 68 years old female with past medical history of hypertension, diabetes mellitus, chronic kidney disease, history of right breast biopsy, presented to the hospital complaining of fevers, chills, nausea, vomiting, associated with shortness of breath. She got progressively worse over the past 24 hours. Patient reported inability to tolerate oral intake. Patient reported nonproductive cough. Upon evaluation in emergency department vital signs revealed elevated blood pressure . Chest x-ray revealed pulmonary edema. Laboratory workup revealed hyperkalemia with potassium 7.6. BUN 37, creatinine 2.9. CBC showed leukocytosis with WBC 21.2, hemoglobin 8.3, hematocrit 26.4. Patient subsequently was admitted for further management. CONSULTANTS: senior security engineer Dr. Ashraf, Dr. Ferrari pulmonary Dr. Hills ID specialist Dr. Jones cloud engineer Dr. Jasmine HOSPITAL COURSE: Patient initially admitted to direct observational unit. Hyperkalemia was treated with Kayexalate, dextrose and insulin. Patient initially started on IV diuresis with Lasix with close monitoring of volumes and cardiorenal parameters. Technology Auditor ,senior security engineer and cloud engineer closely followed. Serial troponin were negative. EKG revealed no acute ischemic changes. Patient was ruled out for acute KS. Echocardiogram revealed preserved ejection fraction of 60% with no evidence of left ventricular hypertrophy. No evidence of wall motion abnormality. Grade 2 left ventricular diastolic dysfunction , consistent with moderately elevated intracardiac filling pressures. Right ventricular systolic pressure of 25. Anti-failure regimen was continued with Cardizem, hydralazine, and furosemide. Diastolic dysfunction was contributing to CHF. Patient was taken off HARMEET/ARB due to renal failure. Antihypertensive medication regimen was optimized by senior security engineer . Blood pressure stabilized. Supplemental oxygen provided as needed to keep pulse oximetry above 92%. Patient initially was on BiPAP, then Venturi mask. Pulmonary toilet provided. Venous duplex bilateral lower extremity revealed no evidence of acute DVT. Chest x-ray revealed improvement in pulmonary congestion . As she clinically improved, she was able to be weaned to oxygen via nasal cannula. Prior to discharge pulse oximetry was stable on room air. Lasix switched to maintenance dose via oral route. ID specialist closely followed. Patient likely had pneumonia. Influenza screen test was negative. Blood culture negative. Patient was followed -up with chest x-ray. Patient was on empiric antibiotics : ceftriaxone and azithromycin for atypical coverage. Aspiration precaution maintained. Leukocytosis trending down , no fevers . CT of the chest done on 05/14, revealed no acute findings Renal parameters electrolytes were closely monitored. Electrolytes corrected as needed. Patient was recommended to avoid nephrotoxic in future. Creatinine at baseline prior to discharge. Sodium and potassium stable. Blood sugar was managed with the Januvia and sliding scale of insulin as needed. Hemoglobin A1c 9.2 , not at goal. Patient will need further outpatient optimization of anti-glycemic regimen as outpatient. Diabetic teaching provided. Hemoglobin and hematocrit were closely monitored with goal to keep hemoglobin above 7. Anemia workup was consistent with anemia of chronic disease. Prior to discharge hemoglobin 9.7 hematocrit 31.1. Patient clinically stabilized and was ready for discharge home. FINAL DIAGNOSES: Acute respiratory failure with hypoxia -resolved Acute congestive heart failure exacerbation Accelerated hypertension due to hypertensive urgency -resolved Acute on chronic renal failure Acute hyperkalemia -resolved Hyponatremia Hypertension Diabetic nephropathy Diabetes mellitus type 2 Anemia DISCHARGE MEDICATIONS: See Medication Reconciliation list. DISCHARGE INSTRUCTIONS: Patient was discharged home . Follow up with primary care provider in one week. I have been assigned to dictate discharge summary for this account. I was not involved in the patient's management. Caterina Lovelace NP May 15, 2018 10:38
== END 2018-05-14 17:40 | disposition home or self-care (01) | DRG 139 ==
LOC: EDBD 21:45 → EMR 22:16 → 2W 05-10 00:42 → EDBEDREQSVC 05-10 05:01 → EDBEDREQ 05-10 05:02 → 2E 05-11 10:50 → 3E 05-12 14:47
DX: J18.9 Pneumonia, unspecified organism (principal); J96.01 Acute respiratory failure with hypoxia; I50.9 Heart failure, unspecified; E11.22 Type 2 diabetes mellitus with diabetic chronic kidney disease; I13.0 Hypertensive heart and chronic kidney disease with heart failure and stage 1 through stage 4 chronic kidney disease, or unspecified chronic kidney disease; E87.1 Hypo-osmolality and hyponatremia; N18.9 Chronic kidney disease, unspecified; E87.5 Hyperkalemia; D63.8 Anemia in other chronic diseases classified elsewhere; E66.9 Obesity, unspecified
CPT/HCPCS: 36415; 36600; 71045; 71250; 76770; 80048; 80053; 81001; 82043; 82164; 82306; 82550; 82570; 82803; 82962; 83036; 83540; 83550; 83605; 83735; 83880; 83970; 84100; 84133; 84300; 84484; 84550; 85007; 85025; 86710; 87040; 89050; 93005; 93306; 93970; 94660; 94760; 96361; 96374; 96375; 99291; J1815; J2405; J8499